=== PATIENT | female | born 1960 | race Caucasian/White ===

== ENCOUNTER 2024-09-24 20:37 | Observation (INO) | payer MEDICARE, MEDICAID, SELFPAY ==
[2024-09-24 20:40] VITALS: PULSE 77; PULSE 80; RESP 18; RESP 19; TEMP 37.8; O2SAT 92; O2SAT 99; BMI 38.0
--- NOTE | 2024-09-24 20:53 | PD.EDAMS ---
Altered Mental Status RME/HPI General Chief Complaint: Altered Mental Status Stated Complaint: AMS Time Seen by Provider: 09/24/24 20:53 Arrival date/time: 09/24/24 20:37 RME / HPI RME / HPI narrative: This section includes all my notes and documentations, including HPI, PE, and ED course. Abdelrahman Patino MD HPI: 64-year-old female here to be evaluated with AMS. [facility]. Normally, she is alert and oriented X 4. NH staff noted AMS and hypoxia just prior to arrival according to EMS report. Can't obtain any history from the patient due to AMS. ROS: Can't obtain from the patient due to AMS. Physical Exam: General: Patient has eyes closed but opens briefly with verbal stimulus. Localizes pain. When asked her name, her answer is correct. But she answers her name to all other questions. Patient is jerking and moving nonstop with no obvious purpose. Hypoxia noted. Eyes: Conjunctivae and lids clear. EOMI. PERRL. ENT: No signs of head trauma. Neck: Supple. No carotid bruit. No JVD. Heart: RRR. Lungs: No respiratory distress. Good air movement. No significant rhonchi, wheezing, rales. Abdomen: Soft and nontender. Legs: Lower legs remarkable for edema and erythema, baseline according to the patient later in the ED course. Skin: Warm and dry. Neuro: Difficult exam due to AMS. Patient given Ativan [address] scans, otherwise unable due to her constant jerky movements. I reviewed all diagnostic test results. My interpretation of the EKG is sinus rhythm with no acute ST?T changes. My interpretation of the chest x-ray is increased vascular congestion. My review of the head CT report is no acute findings. My review of the chest/abdomen/pelvis CT report is no acute findings. Blood tests and urine tests remarkable for UTI and CASEY and UDS positive for opiates. COVID/influenza negative. At this point, diagnoses include AMS, UTI, opioid intoxication, and CASEY. Treatment here included IV fluid and Rocephin and Narcan and flumazenil. Some improvement noted. I discussed the case with our hospitalist. About the presentation and exam and diagnostics and treatments here. And need of further care in the hospital. Will accept the patient. Abdelrahman Patino MD Related Data Home Medications ?Medication ?Instructions ?Recorded ?Confirmed simvastatin 40 mg tablet 40 mg PO HS CHOLESTEROL ##0 06/02/14 04/15/24 sitagliptin phosphate 100 mg 100 mg PO QDAY DIABETES #0 tabs 06/02/14 04/15/24 tablet (Januvia) fenofibrate nanocrystallized 48 mg 48 mg PO QDAY 07/18/19 09/25/24 tablet ascorbic acid 7.5 mg-vit E 7.5 2 tab PO DAILY 10/10/23 04/15/24 unit-biotin 1,250 mcg chewable tablet (Hair,Skin,Nails with Biotin) finerenone 10 mg tablet 10 mg PO QDAY 10/10/23 04/15/24 tiotropium 2.5 mcg-olodaterol 2.5 2 puff inhalation QDAY 10/10/23 04/15/24 mcg/actuation mist for inhalation (Stiolto Respimat) baclofen 20 mg tablet 20 mg PO BID 11/16/23 09/25/24 clopidogrel 75 mg tablet 75 mg PO QDAY 11/16/23 09/25/24 empagliflozin 25 mg tablet 25 mg PO QDAY 11/16/23 09/25/24 (Jardiance) multivitamin-ferrous 1 tab PO QDAY 11/16/23 04/15/24 fumarate-folic acid 18 mg-400 mcg tablet (Centrum Women) buprenorphine 7.5 mcg/hour weekly 7.5 mcg topical QWEEK 02/21/24 04/15/24 transdermal patch (Butrans) ascorbic acid (vitamin C) 25 mg 25 mg PO 1XD 04/15/24 04/15/24 tablet cranberry 400 mg capsule 400 mg PO DAILY 04/15/24 04/15/24 diltiazem HCl 180 mg capsule,24 180 mg PO DAILY 04/15/24 04/15/24 hr,extended release (Tiadylt ER) furosemide 40 mg tablet (Lasix) 40 mg PO QDAY 04/15/24 09/25/24 hydrocodone 10 mg-acetaminophen 1 tab PO Q8HR PRN Pain 04/15/24 09/25/24 325 mg tablet insulin regular human 100 unit/mL See Protocol subcut 3XD 04/15/24 04/15/24 (3 mL) subcutaneous pen (Novolin R FlexPen) magnesium hydroxide 400 mg/5 mL 30 ml PO DAILY PRN Constipation 04/15/24 04/15/24 oral suspension (Milk of Magnesia) mineral oil (Fleet Mineral Oil See Rx Instructions .Route 04/15/24 04/15/24 enema) .COMPLEX PRN Constipation ondansetron HCl 4 mg tablet 4 mg PO DAILY PRN nausea 04/15/24 04/15/24 pregabalin 50 mg capsule (Lyrica) 150 mg PO TID 04/15/24 09/25/24 ascorbic acid (vitamin C) 500 mg 500 mg PO BID 09/25/24 09/25/24 capsule aspirin 81 mg chewable tablet 81 mg PO QDAY 09/25/24 09/25/24 buprenorphine 15 mcg/hour weekly 15 mcg topical .WEEK 09/25/24 09/25/24 transdermal patch diltiazem HCl 180 mg 180 mg PO QDAY 09/25/24 09/25/24 capsule,extended release 24 hr, controlled (DILT-XR) finerenone 10 mg tablet (Kerendia) 10 mg PO QDAY 09/25/24 09/25/24 fluticasone fur. 200 mcg-umeclid 1 inh inhalation QDAY 09/25/24 09/25/24 62.5 mcg-vilant 25 mcg inhalat.powder (Trelegy Ellipta) insulin glargine 100 unit/mL (3 50 unit subcut QAM 09/25/24 09/25/24 mL) subcutaneous pen (Lantus Solostar U-100 Insulin) insulin glargine 100 unit/mL (3 75 unit subcut HS 09/25/24 09/25/24 mL) subcutaneous pen (Lantus Solostar U-100 Insulin) minerals 1 tab PO DAILY 09/25/24 09/25/24 naloxone 4 mg/actuation nasal spray 4 mg intranasal Q2M PRN OPIOD 09/25/24 09/25/24 OVERDOSE simvastatin 10 mg tablet 10 mg PO QPM 09/25/24 09/25/24 trazodone 50 mg tablet 50 mg PO HS 09/25/24 09/25/24 zinc sulfate 50 mg zinc (220 mg) 50 mg PO QDAY 03/23/25 03/23/25 capsule Previous Rx's ?Medication ?Instructions ?Recorded pantoprazole 40 mg tablet,delayed 40 mg PO BID #60 tabs 11/17/23 release (Protonix) insulin glargine 100 unit/mL (3 40 unit (0.4 mL) subcut BID #15 mL 02/21/24 mL) subcutaneous pen, sensor Allergies Allergy/AdvReac Type Severity Reaction Status Date / Time venom-honey bee Allergy Severe Anaphylaxis Verified 02/19/24 10:57 venom-wasp Allergy Severe Anaphylaxis Verified 02/19/24 10:57 codeine AdvReac Severe PROJECTILE Verified 02/19/24 10:57 VOMITING Sulfa (Sulfonamide AdvReac Severe Nausea Verified 02/19/24 10:57 Antibiotics) Course Quality Measures none Orders Category Date Time Status Bedside COVID-19 Antigen Test NOW Care 09/24/24 20:59 Active Bedside Influenza A&B Antigen Test NOW Care 09/24/24 20:59 Completed COVID-19 Screening Questionnaire NOW Care 09/25/24 03:56 Active Decision to Admit X1 Care 09/25/24 03:56 Completed EKG (ED ONLY) *Do not use* NOW Care 09/24/24 21:01 Completed Nicholas [Urinary Catheter] QS Care 09/24/24 23:00 Active Saline [Insert IV] NOW Care 09/24/24 20:59 Active Straight [In and Out Catheter] X1 Care 09/24/24 20:[address] chest abdomen pelvis wo Stat Exams 09/24/24 21:[address] head/brain wo con Stat Exams 09/24/24 21:02 Completed EKG (ED Only) Stat Exams 09/24/24 21:01 Draft XR chest 1V portable Stat Exams 09/24/24 21:02 Completed ABG [Arterial Blood Gas] Stat Lab 09/24/24 21:58 Completed Alcohol, Blood Medical Stat Lab 09/24/24 21:40 Completed Ammonia Stat Lab 09/24/24 21:40 Completed Amylase Stat Lab 09/24/24 21:40 Completed BNP [B-Type Natriuretic Peptide] Stat Lab 09/24/24 21:40 Completed Beta Hydroxybutyrate Stat Lab 09/24/24 21:40 Completed Blood Culture (Lab) Stat Lab 09/24/24 20:53 Results CBC Stat Lab 09/24/24 21:40 Completed CMP [Comprehensive Metabolic Panel] Stat Lab 09/24/24 21:40 Completed CRP [C-Reactive Protein] Stat Lab 09/24/24 21:40 Completed D-Dimer Stat Lab 09/24/24 21:40 Completed Drug Screen,Urine Stat Lab 09/24/24 22:15 Completed ESR [Sed Rate (ESR)] Stat Lab 09/24/24 21:40 Completed Lactate (Lactic Acid) Stat Lab 09/24/24 21:40 Completed Lactic Acid, 3 HR Stat Lab 09/25/24 00:58 Completed Lipase Stat Lab 09/24/24 21:40 Completed Magnesium Stat Lab 09/24/24 21:40 Completed PT [Prothrombin Time with INR] Stat Lab 09/24/24 20:50 Completed PTT [Partial Thromboplastin Time] Stat Lab 09/24/24 20:50 Completed Procalcitonin Stat Lab 09/24/24 21:40 Completed TSH [Thyroid Stimulating Hormone] Stat Lab 09/24/24 21:40 Completed Troponin I Stat Lab 09/24/24 21:40 Completed UA, C/S IF [Urinalysis, C/S if Indicated] Stat Lab 09/24/24 22:15 Completed Urine Culture Stat Lab 09/24/24 22:15 Received LORazepam [Ativan Inj] Med 09/24/24 23:25 Discontinued 2 mg IVP X1 ONE NALOXONE INJ (Vial) [Narcan Inj (Vial)] Med 09/25/24 02:14 Discontinued 2 mg IV X1 ONE Sodium Chloride 0.9% 1000 ml [Ns] 1,000 ml Med 09/24/24 21:00 Discontinued IV 999 mls/hr cefTRIAXone [Rocephin] 1,000 mg Med 09/24/24 23:25 Discontinued SODIUM CHLORIDE 0.9% (Popper) [Ns 0.9% (P)] 50 ml IV X1 flumazeniL [Romazicon Inj] Med 09/25/24 02:14 Discontinued 0.2 mg IVP X1 ONE Vital Signs Vital signs: Vital Signs Temperature 100.1 F 09/24/24 20:40 Pulse Rate 80 09/24/24 20:40 Respiratory Rate 19 09/24/24 20:40 Pulse Oximetry (%) 92 L 09/24/24 20:40 Oxygen Delivery Method Room Air 09/24/24 20:40 Altered Mental Status Patient data External records reviewed:: [facility] previous records, EMS form and Group Home records Clinical information provided by:: EMS Social determinants that could affect healthcare access:: other (specify) ([facility] patient) Patient has the following chronic illnesses:: DM, chronic pain, chronic leg edema How is presenting disease/condition affected by chronic disease/condition?: exacerbated by Evaluation data The following diagnostics were reviewed and interpreted by me:: lab results, radiology exam(s) and EKG tracing(s) (My interpretation of the EKG: Paced rhythm (67 bpm). Abdelrahman Patino MD) Lab and/or radiology exams considered but not ordered:: None Interpretation Summary: AMS, UTI, CASEY, opioid intoxication Medications / Prescriptions Medications or Prescriptions considered but not ordered:: None Medication administrations:: Medication Administration History Acetaminophen (Acetaminophen 325 Mg Tablet) 650 mg PO Q6H PRN PRN Reason: Fever >100 or pain 1-3 Stop: 10/25/24 04:36 Hydrocodone Bitart/Acetaminophen (Hydrocodone/Apap 10/325 Tab) 1 tab PO Q6H PRN PRN Reason: PAIN SCALE 4-6 (Moderate Stop: 09/30/24 04:36 Albuterol/Ipratropium (Albuterol/Ipratropium (Duoneb) Rt Joy 3 Ml Nebu) 3 ml INH Q4HRRT PRN PRN Reason: sob/wheezing Stop: 10/25/24 06:59 Atorvastatin Calcium (Atorvastatin Calcium 20 Mg Tablet) 40 mg PO HS EMY Stop: 10/25/24 20:59 Last Admin: 09/25/24 21:14 Dose: 40 mg Documented By: MS Clopidogrel Bisulfate (Clopidogrel Bisulfate 75 Mg Tablet) 75 mg PO QDAY EMY Stop: 10/25/24 08:59 Last Admin: 09/25/24 09:28 Dose: 75 mg Documented By: VRS Dextrose (Dextrose 50%-Water Inj 50 Ml Syringe) 25 ml IV Q15MIN PRN PRN Reason: BG 50-70 responsive npo pt Stop: 10/25/24 04:41 Dextrose (Dextrose 50%-Water Inj 50 Ml Syringe) 50 ml IV Q15MIN PRN PRN Reason: BG <50 OR BG <70 & pt unresponsive Stop: 10/25/24 04:41 Diltiazem HCl (Diltiazem Er 90 Mg Er Capsule) 180 mg PO QDAY EMY Stop: 10/25/24 08:59 Last Admin: 09/25/24 11:20 Dose: Not Given Documented By: CS Non-Admin Reason: not given by previous department Glucagon (Glucagon Inj 1 Mg Vial) 1 mg IM Q15MIN PRN PRN Reason: BG <70, and no IV access Heparin Sodium (Porcine) (Heparin Sod Inj 5000 Unit/Ml Vial) 5,000 unit SC Q12H EMY Stop: 10/09/24 08:59 Last Admin: 09/25/24 21:15 Dose: 5,000 unit Documented By: Co-signed By: Admin: 09/25/24 09:28 Dose: 5,000 unit Documented By: WILLIAMS Co-signed By: GEOVANNY Ceftriaxone Sodium/Dextrose (Rocephin/D5w 1gm Iv Premix) 1 gm in 50 mls @ 100 mls/hr IV HS EMY Stop: 10/02/24 08:59 Last Admin: 09/25/24 21:15 Dose: 100 mls/hr Documented By: Insulin Human Lispro (Insulin Lispro (Admelog) 1 Unit/0.01 Ml Unit) 0 unit SC AC EMY; Protocol Stop: 10/25/24 07:29 Last Admin: 09/25/24 17:00 Dose: Not Given Documented By: CS Non-Admin Reason: Per Protocol Admin: 09/25/24 11:30 Dose: Not Given Documented By: BELKYS Non-Admin Reason: Per Protocol Admin: 09/25/24 07:41 Dose: Not Given Documented By: VRS Non-Admin Reason: Per Protocol Ondansetron HCl (Ondansetron Inj 2 Mg/Ml Inj 2 Ml) 4 mg IV Q6H PRN; Protocol PRN Reason: NAUSEA OR VOMITING Stop: 10/25/24 04:36 Pregabalin (Pregabalin 50 Mg Capsule) 50 mg PO TID EMY Stop: 10/25/24 21:59 Last Admin: 09/25/24 21:15 Dose: 50 mg Documented By: Sennosides (Senna Tablet) 1 tab PO QDAY PRN; Protocol PRN Reason: constipation Stop: 10/25/24 08:59 Discontinued Medications Hydrocodone Bitart/Acetaminophen (Hydrocodone/Apap 10/325 Tab) 1 tab PO X1 ONE Stop: 09/26/24 00:48 Last Admin: 09/26/24 00:56 Dose: 1 tab Documented By: Flumazenil (Flumazenil Inj 0.1 Mg/Ml Vial 10 Ml) 0.2 mg IVP X1 ONE Stop: 09/25/24 02:15 Last Admin: 09/25/24 02:41 Dose: 0.2 mg Documented By: EE Fluvastatin Sodium (Fluvastatin Sodium 20 Mg Capsule) 20 mg PO HS [facility] Stop: 10/25/24 20:59 Sodium Chloride (Ns) 1,000 mls @ 999 mls/hr IV .Q1H1M ONE Stop: 09/24/24 22:00 Last Infusion: 09/24/24 23:00 Dose: Infused Documented By: Admin: 09/24/24 21:59 Dose: 999 mls/hr Documented By: CCT Ceftriaxone Sodium 1,000 mg/ (Sodium Chloride) 50 mls @ 100 mls/hr IV X1 ONE Stop: 09/24/24 23:54 Last Infusion: 09/25/24 00:10 Dose: Infused Documented By: Admin: 09/24/24 23:36 Dose: 100 mls/hr Documented By: CCT Sodium Chloride (Ns) 500 mls @ 75 mls/hr IV .Q6H40M [facility] Stop: 09/25/24 13:48 Last Admin: 09/25/24 07:44 Dose: 75 mls/hr Documented By: VRS Lidocaine (Lidocaine 5% 1 Patch) 1 patch TOP X1 ONE Stop: 09/25/24 20:15 Last Admin: 09/25/24 20:14 Dose: Not Given Documented By: MS Non-Admin Reason: Patient Refused Lorazepam (Lorazepam 2 Mg/Ml Vial) 2 mg IVP X1 ONE Stop: 09/24/24 23:26 Last Admin: 09/24/24 23:36 Dose: 2 mg Documented By: CCT Naloxone HCl (Naloxone Inj 0.4 Mg/Ml Vial) 2 mg IV X1 ONE Stop: 09/25/24 02:15 Last Admin: 09/25/24 02:42 Dose: 2 mg Documented By: EE Co-signed By: CCT Pantoprazole Sodium (Pantoprazole Inj 40 Mg Vial) 40 mg IVP QDAY [facility] Stop: 10/25/24 08:59 Last Admin: 09/25/24 09:28 Dose: 40 mg Documented By: VRS Trazodone HCl (Trazodone Hcl 50 Mg Tablet) 50 mg PO HS EMY Stop: 10/25/24 20:59 From me, patient was given Ativan for CT scan. Then she was given IV fluid and Rocephin and Narcan and flumazenil. Consultations Consultation(s) initiated? (list below): No Diagnosis Differential diagnosis altered mental status: alcoholic intoxication, altered mental status, delirium, dementia, hypoglycemia, hyponatremia, subarachnoid hemorrhage and sepsis Most likely diagnosis given after review of the tests above:: AMS, UTI, CASEY, opioid intoxication Admission Indicated Admission indicated?: indicated Explain why admission is indicated or not indicated:: AMS, UTI, CASEY, opioid intoxication Admission Request Was there a request for admission?: Yes Admission Attestation Admission request attestation: Discussed case with Hospitalist service regarding admission. Discussed patients ED course, exam findings, labs, and radiology results. The Hospitalist [agrees] to accept the patient for admission. Disposition Plan Disposition Plan: Admit Critical Care Time Critical Care Time Total Critical Care Time (min.): 48 Attestation: Due to a high probability of clinically significant, life threatening deterioration, the patient required my highest level of preparedness to intervene emergently and I personally spent this critical care time directly and personally managing the patient. This critical care time included obtaining a history; examining the patient; ordering and review of studies; arranging urgent treatment with development of a management plan; evaluation of patient's response to treatment; frequent reassessment; and discussions with family and other providers. It was exclusive of separately billable procedures and treating other patients and teaching time. Abdelrahman Patino MD Discharge Plan Plan Patient Disposition: Other Care w/in Hosp (SDC/GEN) Problem List Clinical Impression: AMS (altered mental status), Acute respiratory failure with hypoxia, UTI (urinary tract infection), Opiate use
--- NOTE | 2024-09-24 21:00 | PC.NURSE ---
[facility]o altered mental status. At this time, pt is lethargic, arousable to voice and oriented to self. Also noted abnormal twitching of body. Per EMS, normally GSC 15, alert/oriented x4 and body twitching is new for pt. Pt place on cash grain farmer, bed to lowest position, call light within reach. Discussed plan of care with Dr. Patino.
--- NOTE | 2024-09-24 21:01 | EKG_ITS ---
[facility] Test Date: 2024-09-24 Pat Name: PLACIDO HERNANDES Department: Room: - Gender: Female Director Of Event Sales: : 1960 Requested By: Abdelrahman Moesr Order Number: [id number] Reading MD: Abdelrahman Moser Measurements Intervals Vestal Rate: 67 P: -59 KS: 184 QRS: 35 QRSD: 104 T: 106 QT: 426 QTc: 451 Interpretive Statements ECTOPIC ATRIAL RHYTHM ABNORMAL QRS-T ANGLE [QRS-T AXIS DIFFERENCE > 60] Compared to ECG 04/15/2024 13:15:22 Ectopic atrial rhythm now present Sinus rhythm no longer present Myocardial infarct finding no longer present /store/S0/[id number]/ecg/[id number].pdf
--- NOTE | 2024-09-24 21:02 | XR_ITS ---
Examination: CT brain head without contrast. 2-D sagittal coronal reconstructions Date and time of exam:September 25, 2024 0038 hours Comparison April 15, 2024 INDICATIONS: Altered mental status today, history altered mental status April 15, 2024 CTDI: vol (mGy):51.5 DLP: (mGycm):937 Technique: Multiple CT axial sections of the brain have been obtained, 5 mm slice thickness. Contrast has not been administered. 2-D sagittal, coronal reconstructions have been obtained Low dose protocols were performed. One or more of the following dose reduction techniques were used; automated exposure control, adjustment of the mA and/or KV according to patient size, use of iterative reconstruction technique. Findings: No significant ventricular enlargement. 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 No mass effect or midline shift Basal cisterns are not remarkable. Fourth ventricle is midline. Cranial vault intact. Impression: Negative for acute hemorrhage, mass effect or midline shift If symptoms persist, consider brain MRI MRA without contrast, stroke protocol, follow-up
--- NOTE | 2024-09-24 21:02 | XR_ITS ---
Examination: AP chest single view TECHNIQUE: AP portable semiupright chest single view Exam date and time:: September 24, 2024 2005 hours INDICATIONS: Shortness of breath today. COMPARISON: April 15, 2024 FINDINGS: Normal heart size Moderate vascular congestion Normal lobar pneumonia Moderate osteopenia IMPRESSION: Moderate vascular congestion
--- NOTE | 2024-09-24 21:02 | XR_ITS ---
Examination: CT chest, without intravenous contrast. CT abdomen, without intravenous contrast. CT pelvis, without intravenous contrast. 2-D sagittal and coronal reconstructions. 3-D reconstructions. Date and time of exam:September 25, 2024 0004 hours Comparison May 01, 2024 INDICATIONS: Onset chest and abdominal pain today CTDI vol (mgy) 22.5 DLP (MGycm)1548 Technique: Multiple CT images, 3.0 mm slice thickness, obtained chest, abdomen, pelvis, with the high-resolution 64 slice scanner.. Sagittal and coronal 2-D reconstructions are obtained. 3-D reconstructions Low dose protocols were performed. One or more of the following dose reduction techniques were used; automated exposure control, adjustment of the mA and/or KV according to patient size, use of iterative reconstruction technique. Findings: Thoracic aortic calcification no aneurysmal dilatation Pulmonary artery segments are not enlarged Heavy calcification left main and left anterior descending right coronary arteries Mild enlargement left atrium or ventricle Mild mitral valvular calcification No lobar pneumonia or pulmonary edema Stable 15 mm pulmonary nodule right middle lobe 10 mm pulmonary nodule right upper lobe Liver is irregular in contour and enlarged, 18 cm Absent gallbladder Spleen is not enlarged No pancreatic or adrenal mass Moderate bilateral renal parenchymal scar formation Heavy abdominal aortic calcification Normal appendix No diverticulitis 3.6 cm fat-containing umbilical hernia Atrophic uterus Urinary bladder contracted around a Nicholas catheter Prominent osteopenia IMPRESSION: Heavy coronary artery calcification Pulmonary nodules as above, the right upper lobe pulmonary nodule 10 mm measured 7 mm on April 11, 2024, recommend continued CT chest without contrast follow-up Cirrhosis versus primary hepatocellular disease, hepatomegaly Moderate bilateral renal parenchymal scar formation 3.6 cm fat-containing umbilical hernia
[2024-09-24 21:54] LABS: Lactate (Lactic Acid) 2.1 mMol/L (0.4-2.0)
[2024-09-24 21:55] LABS: Basophils # (Auto) 0.1 Thou/mm3 (0.0-0.2); Basophils % (Auto) 1 % (0-2.5); Eosinophils # (Auto) 0.5 Thou/mm3 (0.0-0.5); Eosinophils % (Auto) 6 % (0-10); Hematocrit 37.5 % (36.0-46.0); Hemoglobin 12.2 g/dL (12.0-16.0); Immature Granulocytes % (Auto) 1 % (0-0); Immature Granulocytes Auto 0.06 Thou/mm3 (0.00-0.00); Lymphocytes # (Auto) 1.3 Thou/mm3 (1.0-4.8); Lymphocytes % (Auto) 14 % (10-50); Mean Corpuscular HGB Conc 32.5 g/dl (31.0-37.0); Mean Corpuscular Hemoglobin 27.5 pg (25.0-35.0); Mean Corpuscular Volume 85 fL (80-100); Monocytes # (Auto) 1.1 Thou/mm3 (0.0-0.8); Monocytes % (Auto) 12 % (0-12); Neutrophils # (Auto) 6.2 Thou/mm3 (1.8-7.7); Neutrophils % (Auto) 67 % (37-80); Nucleated Red Blood Cell % 0 /100 WBC (0); Platelet Count 349 Thou/mm3 (140-440); RDW Standard Deviation 46.7 fL (36.4-46.3); Red Blood Count 4.43 Miln/mm3 (4.00-5.20); White Blood Count 9.3 Thou/mm3 (3.6-11.0)
[2024-09-24 21:58] LABS: Beta Hydroxybutyrate 0.3 mmol/L (<0.6)
[2024-09-24] MEDS: SODIUM CHLORIDE 0.9% 1000 ML 1,000 ML 999 ML IV (21:59)
[2024-09-24 22:14] LABS: Base Excess 7 (-3-3); HCO3 33 mEq/L (20-26); Inspired Oxygen, FIO2 21 %; O2 Saturation 97 % (91-98); PCO2 55 mmHg (32.0-48.0); PO2 92 mmHg (83-108); pH, Arterial 7.39 (7.35-7.45)
[2024-09-24 22:15] LABS: B-Type Natriuretic Peptide 39 pg/mL (0-100)
[2024-09-24 22:17] LABS: Alanine Aminotransferase 38 U/L (10-49); Albumin, Serum 4.4 gm/dL (3.4-4.8); Albumin/Globulin Ratio 1.6 (1.2-2.2); Alcohol, Blood Medical < 3.0 mg/dL (0-10.0); Alkaline Phosphatase 159 U/L (46-116); Ammonia < 10 uMol/L (11-32); Amylase 71 U/L (30-118); Anion Gap 10 (7-16); Aspartate Amino Transferase 42 U/L (0-34); BUN/Creatinine Ratio 41 Ratio (12-20); Bilirubin,Total 0.3 mg/dL (0.3-1.2); Blood Urea Nitrogen 74 mg/dL (9-23); C-Reactive Protein 3.1 mg/dL (0.0-0.9); Carbon Dioxide 29.4 mMol/L (20.0-31.0); Chloride 100 mMol/L (98-107); Creatinine (Component) 1.8 mg/dL (0.6-1.3); Estimated Creatinine Clearance 34.7 mL/min (>60); Globulin 2.8 gm/dL (2.3-3.5); Glucose 83 mg/dL (74-106); Lipase 35 U/L (12-53); Magnesium 2.5 mg/dL (1.6-2.6); Osmolality,Calculated 298 (275-295); Potassium 4.8 mMol/L (3.4-5.1); Sodium 139 mMol/L (136-145); Total Protein 7.2 gm/dL (5.7-8.2); Troponin I 0.022 ng/mL (0.0-0.045); eGFR 31 See Note
[2024-09-24 22:18] LABS: Partial Thromboplastin Time 27.1 Seconds (22.0-36.0); Prothrombin Time 11.3 Seconds (9.0-12.2)
[2024-09-24 22:23] LABS: Procalcitonin 0.26 ng/ml (0.0-0.49); Thyroid Stimulating Hormone 3.46 uIU/mL (0.55-4.78)
[2024-09-24 22:26] LABS: Allen Test Performed/OK; Puncture Site Right Radial
[2024-09-24 22:27] LABS: Collection Type, Urine Clean Catch; RBC,Urine 0 /hpf (0-3)
[2024-09-24 22:32] LABS: Sed Rate (ESR) 74 mm/hr (0-30)
[2024-09-24 22:36] LABS: D-Dimer 404 ng/mL (<600)
[2024-09-24 22:39] LABS: Bacteria,Urine Rare; Bilirubin,Urine Negative (Negative); Blood,Urine Negative (Negative); Clarity,Urine Turbid (Clear/Hazy); Color,Urine Lt-Yellow (Lt Yel-Yel); Glucose, Urine 4+ (Negative); Ketones,Urine Negative (Negative); Leukocyte Esterase,Urine Positive (Negative); Nitrite,Urine Negative (Negative); Protein,Urine 1+ (Neg - Trace); Specific Gravity,Urine 1.013 (1.001-1.035); Squamous Epithelial Cell,Urine < 1 /hpf (0-5); Urobilinogen,Urine Negative mg/dL (0.0-1.0); WBC,Urine 90 /hpf (0-5)
[2024-09-24 22:42] LABS: Amphetamine/Methamp Scrn,U Negative (Negative); Barbiturate Screen,Urine Negative (Negative); Benzodiazepines Screen,Urine Negative (Negative); Benzoylecgonine Screen, Ur Negative (Negative); Fentanyl Screen,Urine Negative (Negative); Opiate Screen,Urine Positive (Negative); THC Screen,Urine Negative (Negative)
[2024-09-24 22:46] VITALS: BP 136/63; PULSE 66; RESP 18; TEMP 36.8; O2SAT 100
[2024-09-24 22:47] LABS: Culture Indicated,Urine Yes
[2024-09-24] MEDS: LORazepam 2 MG/ML VIAL IVP (23:36)
[2024-09-24] MEDS: cefTRIAXone 1,000 MG in SODIUM CHLORIDE 0.9% (Popper) 50 ML 100 MG IV (23:36)
[2024-09-25] VITALS (8 sets, daily range): BP systolic 107–168; BP diastolic 54–85; PULSE 65–85; RESP 12–20; TEMP 36.1–36.9; O2SAT 94–100; BMI 37.2
[2024-09-25 00:50] LABS: Reflex Lactate? Y
--- NOTE | 2024-09-25 01:12 | PRELIM_ITS ---
CT scan of the head without intravenous contrast (axial sections with sagittal and coronal reformats) September 25, 2024 at 0037 hours Clinical history: Altered mental status. Comparison: No prior study is available for comparison. Findings: There is no evidence of intracranial hemorrhage, mass effect or midline shift. There are periventricular white matter hypodensities, compatible with chronic small vessel ischemia. There is mild volume loss. The calvarium is unremarkable. There is complete opacification of the right frontal sinus and mild mucosal thickening in bilateral ethmoid sinuses. The mastoid air cells and the other visualized paranasal sinuses are clear. Impression: No evidence of intracranial hemorrhage, mass effect or midline shift. Chronic small vessel ischemia and volume loss as described. Report Electronically Signed By: Rusty Antunez 09/25/2024 1:11:45 AM [EST]
[2024-09-25 01:16] LABS: Lactic Acid, 3 HR 1.3 mMol/L (0.4-2.0)
--- NOTE | 2024-09-25 02:18 | PRELIM_ITS ---
CT scan of the chest, abdomen and pelvis without intravenous contrast (axial sections with sagittal and coronal reformats) September 25, 2024 0041 hours Clinical History: Chest pain and abdominal pain. Comparison: None. Findings: Calcified nodule in the right middle lobe. Bilateral lower lobes atelectasis. There is no pleural effusion or pneumothorax. The aorta is within normal limits for age on this noncontrast study. No evidence of mediastinal mass or lymphadenopathy. There is no pericardial effusion. The spleen, pancreas, adrenals and kidneys are unremarkable on this noncontrast study. Hepatomegaly. Mild irregular liver margins. Fecal loading. Status post cholecystectomy. No evidence of bowel obstruction. The appendix is within normal limits. Nicholas catheter in place. Fat-containing umbilical hernia without evidence of inflammation. There is no free fluid or free air. Degenerative changes of the imaged portions of the spine. No acute fractures. Chronic multilevel disc disease. Coronary arteries calcifications. Dilated left atrium. Impression: 1. Coronary arteries calcifications, if acute myocardial infarction is clinically suspected, consider correlation with troponin. 2. Dilated left atrium. 3. Hepatomegaly and possible cirrhosis. 4. Fecal loading. Report Electronically Signed By: Haris Doherty 09/25/2024 2:17:38 AM [EST]
[2024-09-25] MEDS: FLUMAZENIL INJ 0.1 MG/ML VIAL 10 ML 0.2 MG IVP (02:41)
[2024-09-25] MEDS: NALOXONE INJ 0.4 MG/ML VIAL 2 MG IV (02:42)
--- NOTE | 2024-09-25 02:55 | PC.NURSE ---
At this time, pt arousable to voice and able to follow command. Pt is oriented to self. Respirations are even and unlabored. No s/s of acute distress noted. Plan of care ongoing.
--- NOTE | 2024-09-25 04:51 | ESHP_ITS ---
<Statement entered by Ileana Dao MD - 09/26/24 05:06> I reviewed above note and agree with findings and plans. I have also personally examined the patient with medicine team and went over assessment and plan with medical team including education intern and resident physician. 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 Patient lives at SNF and caretakers at home said that patient was altered and was unresponsive. She was brought to the ED unable to respond to questions and was altered. when speaking with patient, she does not know where she is is alert to time, however is alert to person. She denies having any complaints including chest pain, shortness of breath, nausea, vomiting. She says she eats fine and her bowel movements are fine. She says she has a little pain in her lower extremities, however this is chronic. She also states that she wants to get up as well. She does confirm she is from nursing facility as well. She says she does not use oxygen at home. She said she does walk on her own. She has no other complaints at this time. ED course: Patient arrived with a temperature of 100.1, heart rate of 80, respiratory rate of 19, saturating 92% room air, blood pressure of 136/63. She was worked up was found to have a sodium 139, potassium 4.8, BUN/creatinine of 74 and 1.8 respectively, bicarb 29, glucose 80, white count 9.3, hemoglobin 12.2, pH ABG 7.34, pCO2 55, bicarb 33, Lactate 2.1, magnesium 2.5, troponin negative x 1, urinalysis showed 90 white cells, rare bacteria and leukocyte esterase, U tox showed opioid. Head CT showed chronic ischemic changes however no acute hemorrhage, mass effect or midline shift. CT C/A/P possible cirrhosis, hepatomegaly, fecal loading, and calcification of coronary arteries. Showed patient given 1 L NS Rocephin x 1, Ativan 2 mg, flumazenil 0.2 mg, Narcan 2 mg. Medicine was consulted patient was admitted to floors. Past medical history: As above Surgical history: Limited Allergies: Codeine, sulfa antibiotics, venom wasp and honeybee Meds: DuoNeb, trazodone, Dawson 10, zinc, ascorbic acid, Lasix 40 mg, Lyrica 150 mg 3 times daily, Lantus, U transdermal patch, simvastatin 10, fenofibrate, NovoLog, Jardiance, triameterne-hydrochlorothiazide, Plavix, Kerendia, Trelegy, Protonix, Lantus, baclofen, diltiazem XR 180, Dulcolax, Fleet enema History: Limited Social history: Limited, coming from [facility] Review of Systems Review of Systems Narrative Review of Systems: ROS is limited as patient is poor historian and altered at this point Exam Vital Signs Temp Pulse Resp BP Pulse Ox O2 Del Method O2 Flow Rate 98.1 F 85 17 152/56 H 100 Nasal Cannula 2 09/25/24 03:00 09/25/24 03:00 09/25/24 03:00 09/25/24 03:00 09/25/24 03:00 09/25/24 03:00 09/25/24 03:00 Narrative Exam General: AAOx1, in mild distress, not alert to time and environment, wearing glasses, eyes are closed when speaking with you, obese HEENT: Moist mucous membranes, conjunctiva clear, EOMI, PERRLA, poor dentition, eyes are not pinpoint, eyes are closed when she speaks with you Cardiovascular: possible systolic murmur heard over LEXI, radial pulses +2 bilat, RRR Pulmonary: CTAB bilat no cough, no wheezing GI: No tenderness to light or deep palpitation, no guarding, rigidity, rebound tenderness or distension Extremities: chronic LE cellulitis seen, slightly TTP bilat, dorsalis pedis pulses +2 bilat Neuro: AAOx1, pupillary reflex +2 intact, responds to pain Psych: slightly cooperative Results: Labs 09/25/24 05:27 09/25/24 05:27 Labs: Short CBC 09/24/24 Range/Units 21:40 WBC 9.3 (3.6-11.0) Thou/mm3 Hgb 12.2 (12.0-16.0) g/dL Hct 37.5 (36.0-46.0) % Plt Count 349 (140-440) Thou/mm3 BMP 09/24/24 21:40 Sodium 139 Potassium 4.8 Chloride 100 Carbon Dioxide 29.4 BUN 74 H Creatinine 1.8 H Glucose 83 Calcium 10.0 Cardiac Enzymes 09/24/24 Range/Units 21:40 Troponin I 0.022 (0.0-0.045) ng/mL Liver Function 09/24/24 Range/Units 21:40 Total Bilirubin 0.3 (0.3-1.2) mg/dL AST 42 H (0-34) U/L ALT 38 (10-49) U/L Alkaline Phosphatase 159 H (46-116) U/L Albumin 4.4 (3.4-4.8) gm/dL Urine 09/24/24 Range/Units 22:15 Urine Color Lt-Yellow (Lt Yel-Yel) Urine Clarity Turbid A (Clear/Hazy) Urine pH 6.0 (5.0-7.0) Ur Specific Sandy 1.013 (1.001-1.035) Urine Protein 1+ A (Neg - Trace) Urine Glucose (UA) 4+ A (Negative) ABG Interpretation ABG results: 09/24/24 21:58 ABG pH 7.39 ABG pCO2 55 H ABG pO2 92 ABG HCO3 33 H ABG O2 Saturation 97 ABG Base Excess 7 H Quality Measures Quality Measures VTE prophylaxis (Heparin) Medications Home Medications and Allergies Home Medications ?Medication ?Instructions ?Recorded ?Confirmed ?Type simvastatin 40 mg tablet 40 mg PO HS CHOLESTEROL ##0 06/02/14 04/15/24 History sitagliptin phosphate 100 mg 100 mg PO QDAY DIABETES # 0 tabs 06/02/14 04/15/24 History tablet (Januvia) fenofibrate nanocrystallized 48 mg 48 mg PO QDAY 07/1804/15/24 History tablet ascorbic acid 7.5 mg-vit E 7.5 2 tab PO DAILY 10/10/23 04/15/24 History unit-biotin 1,250 mcg chewable tablet (Hair,Skin,Nails with Biotin) finerenone 10 mg tablet 10 mg PO QDAY 10/10/2304/15 History tiotropium 2.5 mcg-olodaterol 2.5 2 puff inhalation QD AY 10/10/23 04/15/24 History mcg/actuation mist for inhalation (Stiolto Respimat) baclofen 20 mg tablet 20 mg PO BID 11/16/23 History clopidogrel 75 mg tablet 75 mg PO QDAY 11/16/2304/15 History empagliflozin 25 mg tablet 25 mg PO QDAY 11/16/2304/05 History (Jardiance) multivitamin-ferrous 1 tab PO QDAY 11/16/2304/15 History fumarate-folic acid 18 mg-400 mcg tablet (Centrum Women) buprenorphine 7.5 mcg/hour weekly 7.5 mcg topical QWEE K 02/21/24 04/15/24 History transdermal patch (Butrans) ascorbic acid (vitamin C) 25 mg 25 mg PO 1XD 04/15/24 04/15/24 History tablet cranberry 400 mg capsule 400 mg PO DAILY 04/15/2405/29 History diltiazem HCl 180 mg capsule,24 180 mg PO DAILY 04/15/24 History hr,extended release (Tiadylt ER) furosemide 40 mg tablet (Lasix) 20 mg PO QDAY 04/15/24 04/15/24 History hydrocodone 10 mg-acetaminophen 1 tab PO Q8HR PRN Pain 04/15/24 04/15/24 History 325 mg tablet insulin regular human 100 unit/mL See Protocol subcut 3XD 04/15/24 04/15/24 History (3 mL) subcutaneous pen (Novolin R FlexPen) magnesium hydroxide 400 mg/5 mL 30 ml PO DAILY PRN Con stipation 04/15/24 04/15/24 History oral suspension (Milk of Magnesia) mineral oil (Fleet Mineral Oil See Rx Instructions .Ro morongo 04/15/24 04/15/24 History enema) .COMPLEX PRN Constipation ondansetron HCl 4 mg tablet 4 mg PO DAILY PRN nausea 1 04/15/24 History pregabalin 50 mg capsule (Lyrica) 100 mg PO BID 04/15/24 History Held on 04/18/24. Instructions: Resume on 04/25/24. follow up with PCP, consider decreasing dosage as it makes you somnolent Allergies Allergy/AdvReac Type Severity Reaction Status Date / Time venom-honey bee Allergy Severe Anaphylaxis Verified 02/19/24 10:57 venom-wasp Allergy Severe Anaphylaxis Verified 02/19/24 10:57 codeine AdvReac Severe PROJECTILE Verified 02/19/24 10:57 VOMITING Sulfa (Sulfonamide AdvReac Severe Nausea Verified 02/19/24 10:57 Antibiotics) Visit Medications Acetaminophen (Acetaminophen 325 Mg Tablet) 650 mg PO Q6H PRN PRN Reason: Fever >100 or pain 1-3 Stop: 10/25/24 04:36 Hydrocodone Bitart/Acetaminophen (Hydrocodone/Apap 10/325 Tab) 1 tab PO Q6H PRN PRN Reason: PAIN SCALE 4-6 (Moderate Stop: 09/30/24 04:36 Albuterol/Ipratropium (Albuterol/Ipratropium (Duoneb) Rt Joy 3 Ml Nebu) 3 ml INH Q4HRRT PRN PRN Reason: sob/wheezing Stop: 10/25/24 06:59 Clopidogrel Bisulfate (Clopidogrel Bisulfate 75 Mg Tablet) 75 mg PO QDAY EMY Stop: 10/25/24 08:59 Dextrose (Dextrose 50%-Water Inj 50 Ml Syringe) 25 ml IV Q15MIN PRN PRN Reason: BG 50-70 responsive npo pt Stop: 10/25/24 04:41 Dextrose (Dextrose 50%-Water Inj 50 Ml Syringe) 50 ml IV Q15MIN PRN PRN Reason: BG <50 OR BG <70 & pt unresponsive Stop: 10/25/24 04:41 Fluvastatin Sodium (Fluvastatin Sodium 20 Mg Capsule) 20 mg PO HS EMY Stop: 10/25/24 20:59 Glucagon (Glucagon Inj 1 Mg Vial) 1 mg IM Q15MIN PRN PRN Reason: BG <70, and no IV access Heparin Sodium (Porcine) (Heparin Sod Inj 5000 Unit/Ml Vial) 5,000 unit SC Q12H EMY Stop: 10/09/24 08:59 Insulin Human Lispro (Insulin Lispro (Admelog) 1 Unit/0.01 Ml Unit) 0 unit SC AC EMY; Protocol Stop: 10/25/24 07:29 Ondansetron HCl (Ondansetron Inj 2 Mg/Ml Inj 2 Ml) 4 mg IV Q6H PRN; Protocol PRN Reason: NAUSEA OR VOMITING Stop: 10/25/24 04:36 Pantoprazole Sodium (Pantoprazole Inj 40 Mg Vial) 40 mg IVP QDAY EMY Stop: 10/25/24 08:59 Sennosides (Senna Tablet) 1 tab PO QDAY PRN; Protocol PRN Reason: constipation Stop: 10/25/24 08:59 Trazodone HCl (Trazodone Hcl 50 Mg Tablet) 50 mg PO HS EMY Stop: 10/25/24 20:59 Discontinued Medications Flumazenil (Flumazenil Inj 0.1 Mg/Ml Vial 10 Ml) 0.2 mg IVP X1 ONE Stop: 09/25/24 02:15 Last Admin: 09/25/24 02:41 Dose: 0.2 mg Sodium Chloride (Ns) 1,000 mls @ 999 mls/hr IV .Q1H1M ONE Stop: 09/24/24 22:00 Last Infusion: 09/24/24 23:00 Dose: Infused Ceftriaxone Sodium 1,000 mg/ (Sodium Chloride) 50 mls @ 100 mls/hr IV X1 ONE Stop: 09/24/24 23:54 Last Infusion: 09/25/24 00:10 Dose: Infused Lorazepam (Lorazepam 2 Mg/Ml Vial) 2 mg IVP X1 ONE Stop: 09/24/24 23:26 Last Admin: 09/24/24 23:36 Dose: 2 mg Naloxone HCl (Naloxone Inj 0.4 Mg/Ml Vial) 2 mg IV X1 ONE Stop: 09/25/24 02:15 Last Admin: 09/25/24 02:42 Dose: 2 mg Assessment & Plan Plan Assessment Amrita is a 64 y/o female with PMHx of COPD, CAD s/p two stent placements, 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 for an evaluation of altered mental status. Patient lives at [facility] #Acute encephalopathy, multifactorial #Opioid intoxication #UTI Patient came in altered and was not able to answer many questions GCS of 12 at this point Patient required Ativan during CT scan, was given flumazenil and Narcan after Narcan greatly improved patient's mentation, U tox showed opioids Encephalopathy likely multifactorial including opioid intoxication and UTI Urinalysis shows white cells, bacteria and leukocyte esterase Head CT showed chronic ischemic changes Will treat patient's UTI, avoid sedatives with hopes for improvement of encephalopathy Plan: ? Avoid any sedatives including narcotics ? Rocephin 1 g IV daily ? Consider neurology consult ? Neurochecks every 4 hours ? Seizure precautions ? Consider speech therapy if patient fails swallow eval #Acute kidney injury on CKD DDx: Prerenal versus ATN versus obstructive Pt baseline seems to be 1.2, Cr 1.8 today Likely related to poor oral intake Pt got 1L fluids in ED, gentle fluids due to hx of HF No stones seen on CT C/A/P Plan: ? Gentle Maintenance fluids NS 75 cc/hr ? Avoid nephrotoxic agents ? Renally dose medicines ? Urine lytes and creatinine #Hx of COPD Pt denies using home oxygen at home Will consider resuming maintenance inhalers Plan: ?DuoNebs every 6 hours as needed #Hx of HFpEF, G3DD #Hx of mild Pulmonary HTN #Hx of CAD s/p stents #Hypertension #Hyperlipidemia Chronic Unsure if pt has afib, no afib seen on today's ekg and reviewed other ekgs as well Echo from April 2024: Normal LV size and function. Estimated EF 50-55%. Grade 3 diastolic dysfunction. Mild RV dilatation. Normal RV function. Estimated RVSP 30mmHg Moderate MAC. Mildly decreased mobility of the posterior mitral valve leaflet Mild MR, TR. IVC mildly dilatated. Plan: ? Resumed home Cardizem ER 180 mg qday ? Resumed Fluvastatin 20 mg at bedtime to convert to simvastatin 10 mg ? Resumed home Plavix 75 mg daily ? Keep mag and Potassium above 2 and 4 respectively to avoid any cardiac arrhythmias ? Resume GDMT therapy when able #Insulin dependent type II Diabetes mellitus A1c 13.6 in Mar 2024 Plan: ? Sliding scale insulin ? Hypoglycemic protocol in place ? Blood sugar checks with meals #Chronic venous stasis Plan: ? Consider wound care referral #Health Maintenance Disposition: [facility] DVT prophylaxis: Heparin q12h GI prophylaxis: Protonix Diet: NPO, pending swallow eval CODE STATUS: Full Patient seen and care discussed with my attending physician, Dr. Sylwia Tucker, PGY-1
[2024-09-25 06:03] LABS: Basophils # (Auto) 0.1 Thou/mm3 (0.0-0.2); Basophils % (Auto) 1 % (0-2.5); Eosinophils # (Auto) 0.4 Thou/mm3 (0.0-0.5); Eosinophils % (Auto) 4 % (0-10); Hematocrit 36.9 % (36.0-46.0); Hemoglobin 11.8 g/dL (12.0-16.0); Immature Granulocytes % (Auto) 0 % (0-0); Immature Granulocytes Auto 0.04 Thou/mm3 (0.00-0.00); Lymphocytes % (Auto) 10 % (10-50); Mean Corpuscular Hemoglobin 27.4 pg (25.0-35.0); Mean Corpuscular Volume 86 fL (80-100); Monocytes # (Auto) 1.2 Thou/mm3 (0.0-0.8); Monocytes % (Auto) 11 % (0-12); Neutrophils # (Auto) 8.3 Thou/mm3 (1.8-7.7); Neutrophils % (Auto) 75 % (37-80); Nucleated Red Blood Cell % 0 /100 WBC (0); Platelet Count 322 Thou/mm3 (140-440); RDW Standard Deviation 48.1 fL (36.4-46.3); Red Blood Count 4.31 Miln/mm3 (4.00-5.20)
[2024-09-25 06:13] LABS: Glucose Estimated Average 318 mg/dL (80-131); Hemoglobin A1C 12.7 % Hgb (4.8-6.0)
[2024-09-25 06:29] LABS: Alanine Aminotransferase 35 U/L (10-49); Albumin/Globulin Ratio 1.5 (1.2-2.2); Alkaline Phosphatase 139 U/L (46-116); Anion Gap 8 (7-16); Aspartate Amino Transferase 32 U/L (0-34); BUN/Creatinine Ratio 39 Ratio (12-20); Bilirubin,Total 0.3 mg/dL (0.3-1.2); Blood Urea Nitrogen 63 mg/dL (9-23); Calcium 9.5 mg/dL (8.3-10.6); Calcium (Corrected) 9.5 mg/dL (8.5-10.1); Carbon Dioxide 31.4 mMol/L (20.0-31.0); Cardiac Risk Estimate 5.2 RATIO (3.7-5.6); Chloride 103 mMol/L (98-107); Cholesterol 183 mg/dL (132-200); Creatinine (Component) 1.6 mg/dL (0.6-1.3); Globulin 2.6 gm/dL (2.3-3.5); Glucose 106 mg/dL (74-106); HDL Cholesterol 35 mg/dL (40-60); LDL Cholesterol,Calculated 79 mg/dL (0-130); Magnesium 2.4 mg/dL (1.6-2.6); Osmolality,Calculated 301 (275-295); Sodium 142 mMol/L (136-145); Total Protein 6.6 gm/dL (5.7-8.2); Triglycerides 345 mg/dL (30-150); eGFR 36 See Note
[2024-09-25] MEDS: SODIUM CHLORIDE 0.9% 1000 ML 500 ML 75 ML IV (07:44)
[2024-09-25] MEDS: CLOPIDOGREL BISULFATE 75 MG TABLET PO (09:28)
[2024-09-25] MEDS: HEPARIN SOD INJ 5000 UNIT/ML VIAL SC ×2 (09:28→21:15)
[2024-09-25] MEDS: PANTOPRAZOLE INJ 40 MG VIAL IVP (09:28)
[2024-09-25 10:32] LABS: Creatinine,Random Urine 20 mg/dL (30-125); Potassium,Urine Random 25 mMol/L (12-62)
--- NOTE | 2024-09-25 10:39 | PC.NURSE ---
REPORT CALLED TO MERCEDES KIM ON MED SURG. ALL QUESTIONS ANSWERED.
--- NOTE | 2024-09-25 11:50 | ESPR_ITS ---
Documentation for date of: 09/25/24 Subjective Subjective Interval history: 09/25/2024: Overnight admission for a 64-year-old female with past medical history of CAD, insulin-dependent type 2 diabetes, COPD, CKD stage IIIb who presented to the ED with acute encephalopathy likely secondary to polypharmacy along with underlying urinary tract infection. Patient was admitted and started on IV antibiotics and home medications were restarted. Patient will need management of her pain medications as she is currently on Morse 10 mg along with Prevnar for and transdermal patch on the right upper extremity. Patient seen and examined this morning appears to be more awake and answering questions appropriately. Will continue to treat with IV antibiotics and follow-up on urine cultures. Expect discharge within the next 24 to 48 hours depending on physical therapy recommendations. Exam Vital Signs Temp Pulse Resp BP Pulse Ox O2 Del Method O2 Flow Rate 97.4 F 84 12 168/76 H 99 Nasal Cannula 2.5 09/25/24 08:56 09/25/24 08:56 09/25/24 08:56 09/25/24 08:56 09/25/24 08:56 09/25/24 08:56 09/25/24 08:56 Narrative Exam Physical Exam: GENERAL: Awake, answering questions appropriately, appears stated age HEENT: NC/AT. Moist mucosa. PERRLA/EOMI. CARDIO: Heart RRR, no obvious murmurs, no JVD. PULM: No coughing or visible SOB but continues to be on 2 L nasal cannula. Lungs CTA B/L. GI: Abdomen soft, NT/ND, +BS. SKIN/MSK/EXT: Patient has bilateral lower extremity erythematous patches of varying sizes which are blanchable. No edema/amputations noted. +Pedal pulses present B/L. Onychomycosis NEURO: Oriented x3, Moves extremities x4, No focal neurologic deficits Objective Labs 09/26/24 05:37 09/26/24 05:37 Labs: Laboratory Results - last 24 hr 09/24/24 09/24/24 09/24/24 20:50 21:40 21:58 WBC 9.3 RBC 4.43 Hgb 12.2 Hct 37.5 MCV 85 MCH 27.5 MCHC 32.5 RDW Std Deviation 46.7 H Plt Count 349 Neut % (Auto) 67 Lymph % (Auto) 14 [place] % (Auto) 12 Eos % (Auto) 6 Baso % (Auto) 1 Neut # (Auto) 6.2 Lymph # (Auto) 1.3 [place] # (Auto) 1.1 H Eos # (Auto) 0.5 Baso # (Auto) 0.1 Immature Gran # (Auto) 0.06 H Absolute Nucleated RBC 0.00 Immature Gran % 1 H Nucleated RBC % 0 ESR 74 H PT 11.3 INR 1.0 APTT 27.1 D-Dimer 404 Puncture Site Right Radial ABG pH 7.39 ABG pCO2 55 H ABG pO2 92 ABG HCO3 33 H ABG O2 Saturation 97 ABG Base Excess 7 H FiO2 21 Sodium 139 Potassium 4.8 Chloride 100 Carbon Dioxide 29.4 Anion Gap 10 BUN 74 H Creatinine 1.8 H Estim Creat Clear Calc 34.7 L eGFR 31 L BUN/Creatinine Ratio [address] H Glucose [address] Glu mg/dL Hemoglobin A1c Calculated Osmolality 298 H Lactic Acid 2.1 H Calcium 10.0 Corrected Calcium 10.0 Magnesium 2.5 Total Bilirubin 0.3 AST 42 H ALT 38 Alkaline Phosphatase 159 H Ammonia < 10 L Troponin I 0.022 C-Reactive Prot, Quant 3.1 H B-Natriuretic Peptide 39 Total Protein 7.2 Albumin 4.4 Globulin 2.8 Albumin/Globulin Ratio 1.6 Triglycerides Cholesterol LDL Cholesterol, Calc HDL Cholesterol Cholesterol/HDL Ratio Amylase 71 Lipase 35 Beta-Hydroxybutyrate/Acetoacetate 0.3 Procalcitonin 0.26 TSH 3.46 Ur Collection Type Urine Color Urine Clarity Urine pH Ur Specific [place] Urine Protein Urine Glucose (UA) Urine Ketones Urine Blood Urine Nitrite Urine Bilirubin Urine Urobilinogen (Auto) Ur Leukocyte Esterase Urine RBC Urine WBC Ur Squamous Epith Cells Urine Bacteria Ur Culture Indicated? Ur Random Creatinine Ur Random Sodium Ur Random Potassium Ur Random Chloride Urine Opiates Screen Urine Fentanyl Screen Ur Barbiturates Screen U Amphetamin/Meth Scrn U Benzodiazepines Scrn U Cocaine Metab Screen U Marijuana (THC) Screen Ethyl Alcohol < 3.0 09/24/24 09/25/24 09/25/24 22:15 00:58 05:27 WBC 11.0 RBC 4.31 Hgb 11.8 L Hct 36.9 MCV 86 MCH 27.4 MCHC 32.0 RDW Std Deviation 48.1 H Plt Count 322 Neut % (Auto) 75 Lymph % (Auto) 10 [place] % (Auto) 11 Eos % (Auto) 4 Baso % (Auto) 1 Neut # (Auto) 8.3 H Lymph # (Auto) 1.0 [place] # (Auto) 1.2 H Eos # (Auto) 0.4 Baso # (Auto) 0.1 Immature Gran # (Auto) 0.04 H Absolute Nucleated RBC 0.00 Immature Gran % 0 Nucleated RBC % 0 ESR PT INR APTT D-Dimer Puncture Site ABG pH ABG pCO2 ABG pO2 ABG HCO3 ABG O2 Saturation ABG Base Excess FiO2 Sodium 142 Potassium 4.0 D Chloride 103 Carbon Dioxide 31.4 H Anion Gap 8 BUN 63 H Creatinine 1.6 H Estim Creat Clear Calc 39.0 L eGFR 36 L BUN/Creatinine Ratio 39 H Glucose [address] Glu mg/dL 318 H Hemoglobin A1c 12.7 H Calculated Osmolality 301 H Lactic Acid 1.3 Calcium 9.5 Corrected Calcium 9.5 Magnesium 2.4 Total Bilirubin 0.3 AST 32 ALT 35 Alkaline Phosphatase 139 H D Ammonia Troponin I C-Reactive Prot, Quant B-Natriuretic Peptide Total Protein 6.6 Albumin 4.0 Globulin 2.6 Albumin/Globulin Ratio 1.5 Triglycerides 345 H Cholesterol 183 LDL Cholesterol, Calc 79 HDL Cholesterol 35 L Cholesterol/HDL Ratio 5.2 Amylase Lipase Beta-Hydroxybutyrate/Acetoacetate Procalcitonin TSH Ur Collection Type Clean Catch Urine Color Lt-Yellow Urine Clarity Turbid A Urine pH 6.0 Ur Specific [place] 1.013 Urine Protein 1+ A Urine Glucose (UA) 4+ A Urine Ketones Negative Urine Blood Negative Urine Nitrite Negative Urine Bilirubin Negative Urine Urobilinogen (Auto) Negative Ur Leukocyte Esterase Positive Urine RBC 0 Urine WBC 90 H Ur Squamous Epith Cells < 1 Urine Bacteria Rare Ur Culture Indicated? Yes Ur Random Creatinine Ur Random Sodium Ur Random Potassium Ur Random Chloride Urine Opiates Screen Positive A Urine Fentanyl Screen Negative Ur Barbiturates Screen Negative U Amphetamin/Meth Scrn Negative U Benzodiazepines Scrn Negative U Cocaine Metab Screen Negative U Marijuana (THC) Screen Negative Ethyl Alcohol 09/25/24 09:42 WBC RBC Hgb Hct MCV MCH MCHC RDW Std Deviation Plt Count Neut % (Auto) Lymph % (Auto) [place] % (Auto) Eos % (Auto) Baso % (Auto) Neut # (Auto) Lymph # (Auto) [place] # (Auto) Eos # (Auto) Baso # (Auto) Immature Gran # (Auto) Absolute Nucleated RBC Immature Gran % Nucleated RBC % ESR PT INR APTT D-Dimer Puncture Site ABG pH ABG pCO2 ABG pO2 ABG HCO3 ABG O2 Saturation ABG Base Excess FiO2 Sodium Potassium Chloride Carbon Dioxide Anion Gap BUN Creatinine Estim Creat Clear Calc eGFR BUN/Creatinine Ratio Glucose Estimated Ave Glu mg/dL Hemoglobin A1c Calculated Osmolality Lactic Acid Calcium Corrected Calcium Magnesium Total Bilirubin AST ALT Alkaline Phosphatase Ammonia Troponin I C-Reactive Prot, Quant B-Natriuretic Peptide Total Protein Albumin Globulin Albumin/Globulin Ratio Triglycerides Cholesterol LDL Cholesterol, Calc HDL Cholesterol Cholesterol/HDL Ratio Amylase Lipase Beta-Hydroxybutyrate/Acetoacetate Procalcitonin TSH Ur Collection Type Urine Color Urine Clarity Urine pH Ur Specific [place] Urine Protein Urine Glucose (UA) Urine Ketones Urine Blood Urine Nitrite Urine Bilirubin Urine Urobilinogen (Auto) Ur Leukocyte Esterase Urine RBC Urine WBC Ur Squamous Epith Cells Urine Bacteria Ur Culture Indicated? Ur Random Creatinine 20 L Ur Random Sodium 127.0 H Ur Random Potassium 25 Ur Random Chloride 106.0 Urine Opiates Screen Urine Fentanyl Screen Ur Barbiturates Screen U Amphetamin/Meth Scrn U Benzodiazepines Scrn U Cocaine Metab Screen U Marijuana (THC) Screen Ethyl Alcohol ABG Interpretation ABG results: 09/24/24 21:58 ABG pH 7.39 ABG pCO2 55 H ABG pO2 92 ABG HCO3 33 H ABG O2 Saturation 97 ABG Base Excess 7 H Quality Measures Quality Measures VTE prophylaxis (Heparin) Assessment & Plan Assessment Current Active Medications: Generic Name Dose Route Start Last Admin Trade Name Freq PRN Reason Stop Dose Admin Acetaminophen 650 mg 09/25/24 04:37 Acetaminophen 325 Mg Tablet PO 10/25/24 04:36 Q6H PRN Fever >100 or pain 1-3 Hydrocodone Bitart/Acetaminophen 1 tab 09/25/24 04:37 Hydrocodone/Apap 10/325 Tab PO 09/30/24 04:36 Q6H PRN PAIN SCALE 4-6 (Moderate Albuterol/Ipratropium 3 ml 09/25/24 04:42 Albuterol/Ipratropium (Duoneb) Rt Joy 3 Ml Nebu INH 10/25/24 06:59 Q4HRRT PRN sob/wheezing Clopidogrel Bisulfate 75 mg 09/25/24 09:00 09/25/24 09:28 Clopidogrel Bisulfate 75 Mg Tablet PO 10/25/24 08:59 75 mg QDAY MEY Administration Dextrose 25 ml 09/25/24 04:42 Dextrose 50%-Water Inj 50 Ml Syringe IV 10/25/24 04:41 Q15MIN PRN BG 50-70 responsive npo pt Dextrose 50 ml 09/25/24 04:42 Dextrose 50%-Water Inj 50 Ml Syringe IV 10/25/24 04:41 Q15MIN PRN BG <50 OR BG <70 & pt unresponsive Diltiazem HCl 180 mg 09/25/24 09:00 Diltiazem Er 90 Mg Er Capsule PO 10/25/24 08:59 QDAY EMY Fluvastatin Sodium 20 mg 09/25/24 21:00 Fluvastatin Sodium 20 Mg Capsule PO 10/25/24 20:59 HS EMY Glucagon 1 mg 09/25/24 04:42 Glucagon Inj 1 Mg Vial IM Q15MIN PRN BG <70, and no IV access Heparin Sodium (Porcine) 5,000 unit 09/25/24 09:00 09/25/24 09:28 Heparin Sod Inj 5000 Unit/Ml Vial SC 10/09/24 08:59 5,000 unit Q12H EMY Administration Ceftriaxone Sodium/Dextrose 1 gm in 50 mls @ 100 mls/hr 09/25/24 21:00 Rocephin/D5w 1gm Iv Premix IV 10/02/24 08:59 HS EMY Sodium Chloride 500 mls @ 75 mls/hr 09/25/24 07:09 09/25/24 07:44 Ns IV 09/25/24 13:48 75 mls/hr .Q6H40M EMY Administration Insulin Human Lispro 0 unit 09/25/24 07:30 09/25/24 07:41 Insulin Lispro (Admelog) 1 Unit/0.01 Ml Unit SC 10/25/24 07:29 Not Given AC [facility] Protocol Ondansetron HCl 4 mg 09/25/24 04:37 Ondansetron Inj 2 Mg/Ml Inj 2 Ml IV 10/25/24 04:36 Q6H PRN NAUSEA OR VOMITING Protocol Sennosides 1 tab 09/25/24 04:42 Senna Tablet PO 10/25/24 08:59 QDAY PRN constipation Protocol Plan 64-year-old female with past medical history of COPD, CAD s/p two stent placements, insulin-dependent T2DM with associated neuropathy of LE, and chronic B/L cellulitis who comes to the ED BIBA from SNF for acute encephalopathy likely secondary to polypharmacy along with underlying urinary tract infection. #Acute encephalopathy, multifactorial - improving Patient is a resident at SNF; moreover, staff members noticed that she was less awake than usual and brought her to the ED While working her up, patient required Ativan during CT scan, was given flumazenil and Narcan after Narcan greatly improved patient's mentation, U tox showed opioids Encephalopathy likely multifactorial including opioid intoxication and underlying urinary tract infection Head CT showed chronic ischemic change Patient much more awake on 09/25 and passed swallow eval Plan: Avoid any sedatives including narcotics Continue treating underlying infection with IV antibiotics #Polypharmacy #Opioid intoxication Patient is on Morse 10 mg at home secondary to chronic pain related to lower back and right ankle which she sprained Patient has been at the SNF secondary to the right ankle sprain since August 06, [address] Llamas outpatient who recently started her on buprenorphine and transdermal patch for the pain Suspicion is that patient had a opioid intoxication from combination of Morse and buprenorphine Plan: Will discontinue additional opioid medications Multimodal pain management Follow-up with primary care physician for referral to pain specialist #UTI As above, patient is presenting with some acute encephalopathy which could also be exacerbated by urinary tract infection Patient apparently has some symptoms of burning sensation along with increased urinary frequency Urinalysis shows white cells, bacteria and leukocyte esterase Plan: Follow-up on urine and blood cultures Continue IV antibiotics, Rocephin 1 g daily #Acute kidney injury on CKD DDx: Prerenal versus ATN versus obstructive Pt baseline seems to be 1.2, Cr 1.8 today Likely related to poor oral intake Pt got 1L fluids in ED, gentle fluids due to hx of HF No stones seen on CT C/A/P Plan: Discontinued IV maintenance fluids Avoid nephrotoxic agents Renally dose medications Monitor with morning labs #Hx of COPD Pt denies using home oxygen at home or at the detention facility Patient is on Trelegy 1 inhalation daily Plan: DuoNebs every 6 hours as needed Will consider starting Advair in the hospital #Hx of HFpEF, G3DD #Hx of mild Pulmonary HTN #Hx of CAD s/p stents #Hypertension #Hyperlipidemia Chronic 25.5% Risk of cardiovascular event (coronary or stroke or non-fatal DE or stroke) in next 10 years. Echo from April 2024: Normal LV size and function. Estimated EF 50-55%. Grade 3 diastolic dysfunction. Mild RV dilatation. Normal RV function. Estimated RVSP 30mmHg Moderate MAC. Mildly decreased mobility of the posterior mitral valve leaflet. Mild MR, TR. IVC mildly dilatated. Plan: Continue home Cardizem ER 180 mg qday Will start simvastatin to 40 mg as ASCVD risk is high Continue home Plavix 75 mg daily Keep mag and Potassium above 2 and 4 respectively to avoid any cardiac arrhythmias #Insulin dependent type II Diabetes mellitus A1c 13.6 in Mar 2024 A1c of 12.7 on 09/25/2024 Plan: SSI #Chronic venous stasis Chronic medical condition Plan: Consider wound care referral Hospital Management Lines: PIV Diet: Carb consistent low Bowel: Senna GI prophylaxis: Not needed DVT prophylaxis: Heparin subcu Dispo: Monitoring for acute encephalopathy and IV antibiotics for UTI Code: Full Patient seen and examined with attending Dr. Merchant and senior resident Dr. Elian Mcnair, PGY-1 -- ATTESTATION: I saw and examined the patient this morning, and I agree with current management stated by the resident. Will continue to monitor patient during their stay. Patient 64-year-old female with past medical history of COPD, CAD status post 2 stents, insulin-dependent type 2 diabetes, lower extremity neuropathy and chronic bilateral cellulitis that was admitted on 09/25/2024 with acute encephalopathy likely multifactorial. Patient was found to have recently started on buprenorphine and continues to take pain medications at home for her lower back pain. CT scans of the head were negative and patient was found to have opioid positivity in the urine tox. In the ED she was given 1 dose of Narcan after which the patient became more alert and oriented. Patient has a mild UTI which is being treated. Will continue to monitor patient and adjust her regimen prior to discharge. Disclaimer: Despite multiple revisions, due to the dictation software being used, the document bellow may not be free of grammatical errors including phonetic/typographic errors. However, this does not deter from our commitment to providing health care in the patient's best interest in mind. Dr. Babar Plummer, PGY-3 Attending Provider Attestation/Addendum Elizabeth Doran, , attest that I was physically present for the higgins portions of the service and evaluated the patient with the resident and I reviewed and discussed the case with the resident and agree with the resident's findings and plans of care as documented above Patient seen and evaluated this AM. She states she is unsure why she is in the hospital. She states she was sleeping in her chair and subsequently woke up in the hospital. Patient has a buprenorphine patch on her right shoulder region. She states that she has pain all over. She admits to dysuria. Will f/u with urine culture. Patient states she has been getting up with PT at the rehab, but had sprained her right ankle which has set her back with her mobility. Will have PT work with patient. Patient is concerned about her Morse being reduced. However, explained to patient that she is receiving too much pain medication which led to her being obtunded
[2024-09-25] MEDS: ATORVASTATIN CALCIUM 20 MG TABLET 40 MG PO (21:14)
[2024-09-25] MEDS: cefTRIAXone/D5w 1gm IV premix 1 GM/50 ML BAG IV (21:15)
[2024-09-25] MEDS: PREGABALIN 50 MG CAPSULE PO (21:15)
[2024-09-26] VITALS (8 sets, daily range): BP systolic 133–174; BP diastolic 77–96; PULSE 78–98; RESP 16–93; TEMP 36–36.8; O2SAT 92–97; BMI 37.2
[2024-09-26] MEDS: HYDROcodone/APAP 10/325 TAB PO (00:56)
[2024-09-26] MEDS: PREGABALIN 50 MG CAPSULE PO ×2 (05:49→13:23)
[2024-09-26 06:20] LABS: Basophils # (Auto) 0.1 Thou/mm3 (0.0-0.2); Basophils % (Auto) 1 % (0-2.5); Eosinophils # (Auto) 0.6 Thou/mm3 (0.0-0.5); Eosinophils % (Auto) 6 % (0-10); Hematocrit 37.8 % (36.0-46.0); Hemoglobin 12.3 g/dL (12.0-16.0); Immature Granulocytes % (Auto) 1 % (0-0); Immature Granulocytes Auto 0.04 Thou/mm3 (0.00-0.00); Lymphocytes # (Auto) 1.1 Thou/mm3 (1.0-4.8); Lymphocytes % (Auto) 13 % (10-50); Mean Corpuscular HGB Conc 32.5 g/dl (31.0-37.0); Mean Corpuscular Hemoglobin 27.8 pg (25.0-35.0); Mean Corpuscular Volume 85 fL (80-100); Monocytes % (Auto) 12 % (0-12); Neutrophils % (Auto) 68 % (37-80); Nucleated Red Blood Cell % 0 /100 WBC (0); Platelet Count 346 Thou/mm3 (140-440); RDW Standard Deviation 47.1 fL (36.4-46.3); Red Blood Count 4.43 Miln/mm3 (4.00-5.20); White Blood Count 8.8 Thou/mm3 (3.6-11.0)
[2024-09-26 06:26] LABS: Partial Thromboplastin Time 29.8 Seconds (22.0-36.0); Prothrombin Time 11.2 Seconds (9.0-12.2)
[2024-09-26 06:30] LABS: Alanine Aminotransferase 25 U/L (10-49); Albumin, Serum 4.1 gm/dL (3.4-4.8); Albumin/Globulin Ratio 1.5 (1.2-2.2); Alkaline Phosphatase 133 U/L (46-116); Anion Gap 11 (7-16); Aspartate Amino Transferase 24 U/L (0-34); BUN/Creatinine Ratio 38 Ratio (12-20); Bilirubin,Total 0.3 mg/dL (0.3-1.2); Blood Urea Nitrogen 42 mg/dL (9-23); Carbon Dioxide 28.3 mMol/L (20.0-31.0); Chloride 101 mMol/L (98-107); Creatinine (Component) 1.1 mg/dL (0.6-1.3); Estimated Creatinine Clearance 58.2 mL/min (>60); Globulin 2.7 gm/dL (2.3-3.5); Glucose 117 mg/dL (74-106); Magnesium 2.2 mg/dL (1.6-2.6); Osmolality,Calculated 290 (275-295); Potassium 3.9 mMol/L (3.4-5.1); Sodium 140 mMol/L (136-145); Total Protein 6.8 gm/dL (5.7-8.2); eGFR 57 See Note
[2024-09-26] MEDS: DILTIAZEM ER 90 MG ER CAPSULE 180 MG PO (08:59)
[2024-09-26] MEDS: CLOPIDOGREL BISULFATE 75 MG TABLET PO (08:59)
[2024-09-26] MEDS: INSULIN LISPRO (AdmeLOG) 1 UNIT/0.01 ML UNIT SC (11:19)
--- NOTE | 2024-09-26 11:30 | ESDS_ITS ---
<Statement entered by Elizabeth Merchant DO - 09/27/24 08:06> I, Elizabeth Merchant DO, attest that I was physically present for the higgins portions of the service and evaluated the patient with the resident and I reviewed and discussed the case with the resident and agree with the resident's findings and plans of care as documented above Planned Discharge Date 09/26/24 DS: Providers Provider Date of admission: 09/25/24 04:27 Primary care physician: Severo Jenkins MD Admitting Provider: Ileana Dao MD Attending Provider on Admission: Elizabeth Merchant DO Consults: 09/25/24 11:50 Referral Physical Therapy Routine Comment: Physician Instructions: 09/26/24 04:10 Referral Registered Dietitian Routine Comment: Referral Wound Care Routine Comment: Attending Provider on DC: Yung Mcnair MD Discharging Provider: Yung Mcnair MD DS: Diagnosis Problem List Completed Was Problem List Reviewed/Reconciled?: Yes Hospital Course Hospital Course Hospital course: 64-year-old female with past medical history of COPD on home oxygen, coronary disease status post stent placements, insulin-dependent type 2 diabetes, chronic bilateral cellulitis secondary to PAD presented to the ED on 09/25 with acute encephalopathy at [facility] facility. In the ED, patient was febrile with a temperature of 100.1 ?F, normal heart rate, tachypneic but saturating 92% with minimal supplemental oxygen. Patient was admitted and workup for acute encephalopathy yielded likely diagnosis of multifactorial urinary tract infection along with polypharmacy and opioid intoxication. Patient was started on IV antibiotics for the UTI as urine cultures grew gram-negative rods. Patient's mental status progressively improved and upon shared decision making decision was made to follow-up the patient's [place] home medications. Patient continues to be on buprenorphine and transdermal patch for chronic pain and we will continue that. Patient will be discharged with the following strict instructions. Please take Keflex 500mg by mouth twice a day for 6 days Stop taking [place] as combination with your Buprenorphine can lead to opioid toxicity Stop taking Jardiance as this medication can increase your risk of UTI Continue taking all other home medications as prescribed Follow-up with your PCP within 1-2 weeks after discharge - PLEASE ask to be referred to pain specialist If your symptoms worsen or if you develop new chest pain, shortness of breath, dizziness, headaches or loss of consciousness - please come back to the ED immediately. Hospital Diagnosis: #Acute encephalopathy, multifactorial - improving #Polypharmacy #Opioid intoxication #UTI #Acute kidney injury on CKD #Hx of COPD #Hx of HFpEF, G3DD #Hx of mild Pulmonary HTN #Hx of CAD s/p stents #Hypertension #Hyperlipidemia #Insulin dependent type II Diabetes mellitus #Chronic venous stasis Yung Mcnair, PGY-1 Status at Discharge Overall status at discharge: patient is progressing back to baseline Time Spent with Patient Time attestation: Total time spent providing and/or coordinating discharge services: 45 minutes Time spent: Greater than 30 minutes Exam Vital Signs Temp Pulse Resp BP Pulse Ox O2 Del Method O2 Flow Rate 98.2 F 78 18 133/88 H 94 L Room Air 2.5 09/26/24 08:00 09/26/24 08:59 09/26/24 08:00 09/26/24 08:59 09/26/24 08:00 09/26/24 08:00 09/25/24 08:56 Narrative Exam Physical Exam: GENERAL: Awake, answering questions appropriately, appears stated age HEENT: NC/AT. Moist mucosa. PERRLA/EOMI. CARDIO: Heart RRR, no obvious murmurs, no JVD. PULM: No coughing or visible SOB but continues to be on 2 L nasal cannula. Lungs CTA B/L. GI: Abdomen soft, NT/ND, +BS. SKIN/MSK/EXT: Patient has bilateral lower extremity erythematous patches of varying sizes which are blanchable. No edema/amputations noted. +Pedal pulses present B/L. Onychomycosis NEURO: Oriented x3, Moves extremities x4, No focal neurologic deficits Discharge Plan Problem List Was Problem List Reviewed/Reconciled?: Yes Plan Patient Disposition: Xfer Skilled Nsg Fac (SNF) Care Plan Goals: Please take Keflex 500mg by mouth twice a day for 6 days Stop taking [place] as combination with your Buprenorphine can lead to opioid toxicity Stop taking Jardiance as this medication can increase your risk of UTI Continue taking all other home medications as prescribed Follow-up with your PCP within 1-2 weeks after discharge - PLEASE ask to be referred to pain specialist If your symptoms worsen or if you develop new chest pain, shortness of breath, dizziness, headaches or loss of consciousness - please come back to the ED immediately. Prescriptions/Referrals Prescriptions/Med Rec: New cephalexin 500 mg capsule 500 mg PO BID 6 Days Qty: 12 0RF Continued simvastatin 40 MG tablet 40 mg PO HS Qty: 0 Januvia 100 MG tablet 100 mg PO QDAY Qty: 0 fenofibrate nanocrystallized 48 mg Tablet 48 mg PO QDAY buprenorphine [Butrans] 7.5 mcg/hour Patch Weekly 7.5 mcg TOPICAL QWEEK insulin glargine 100 unit/mL (3 mL) insulin pen, sensor 40 unit subcut BID Qty: 15 1RF trazodone 50 mg tablet 50 mg PO HS minerals Tablet 1 tab PO DAILY zinc sulfate 50 mg zinc (220 mg) capsule 50 mg PO QDAY Rx Instructions: X14 DAYS TO STOP ON 09/30/24 ascorbic acid (vitamin C) 500 mg capsule 500 mg PO BID buprenorphine 15 mcg/hour patch weekly 15 mcg TOPICAL .WEEK Rx Instructions: THURSDAY insulin glargine [Lantus Solostar U-100 Insulin] 100 unit/mL (3 mL) insulin pen 50 unit subcut QAM simvastatin 10 mg tablet 10 mg PO QPM Kerendia 10 mg tablet 10 mg PO QDAY Trelegy Ellipta 200-62.5-25 mcg blister with device 1 inh inhalation QDAY insulin glargine [Lantus Solostar U-100 Insulin] 100 unit/mL (3 mL) insulin pen 75 unit subcut HS aspirin 81 mg tablet,chewable 81 mg PO QDAY diltiazem HCl [DILT-XR] 180 mg capsule,ext.rel 24h degradable 180 mg PO QDAY Rx Instructions: HOLD IF SBP IS LESS THAN 110 AND/OR PULSE IS LESS THAN 60 naloxone 4 mg/actuation spray,non-aerosol 4 mg intranasal Q2M PRN (Reason: OPIOD OVERDOSE) 30 Days Qty: 2 3RF Rx Instructions: spray 1 dose into ONE nostril; alternate nostrils w each dose until help arrives Hair, Skin, Nails with Biotin 7.5-7.5-1,250 mg-unit-mcg Tablet,Chewable 2 tab PO DAILY Stiolto Respimat 2.5-2.5 mcg/actuation Mist 2 puff INHALATION QDAY finerenone 10 mg Tablet 10 mg PO QDAY clopidogrel 75 mg Tablet 75 mg PO QDAY baclofen 20 mg Tablet 20 mg PO BID Rx Instructions: TAKE ONE TABLET BY MOUTH TWICE A DAY WITH FOOD. Centrum Women 18-400 mg-mcg Tablet 1 tab PO QDAY pantoprazole [Protonix] 40 mg tablet,delayed release (DR/EC) 40 mg PO BID Qty: 60 0RF diltiazem HCl [Tiadylt ER] 180 mg Capsule,Extended Release 24 Hr 180 mg PO DAILY ondansetron HCl 4 mg Tablet 4 mg PO DAILY PRN (Reason: nausea) mineral oil [Fleet Mineral Oil] Enema See Rx Instructions .ROUTE .COMPLEX PRN (Reason: Constipation) Rx Instructions: as needed magnesium hydroxide [Milk of Magnesia] 400 mg/5 mL Suspension 30 ml PO DAILY PRN (Reason: Constipation) cranberry 400 mg Capsule 400 mg PO DAILY ascorbic acid (vitamin C) 25 mg Tablet 25 mg PO 1XD Novolin R FlexPen 100 unit/mL (3 mL) Insulin Pen See Protocol SUBCUT 3XD Protocol: Age Greater than 75 Protocol Text: Age less than 75 years, to be administred with initial in subcutaneous dose furosemide [Lasix] 40 mg tablet 40 mg PO QDAY pregabalin [Lyrica] 50 mg capsule 150 mg PO TID Discontinued Jardiance 25 mg Tablet 25 mg PO QDAY hydrocodone-acetaminophen 10-325 mg tablet 1 tab PO Q8HR PRN (Reason: Pain) Referrals: Severo Jenkins MD [Primary Care Provider] - Patient/Caregiver Discharge Instructions Education Materials: Urinary Tract Infections in Women, Understanding Urinary Tract ..., Forming an Opioid Treatment Plan, Opioid Use Risks Print Language: Mongolian Stand Alone Forms: Esmer Award Info., Patient Portal Info Letter Discharge Order Discharge Orders: Discharge (Routine); Ordered 09/26/24 Ordered By: Yung Mcnair Quality Discharge Quality Measures VTE prophylaxis
--- NOTE | 2024-09-26 12:04 | PC.SS ---
SS has setup gurney transportation with Erin at [facility] for 2pm to [facility].? Ref# [id number].? SS has requested [facility].? SS has provided her with [facility]'s phone# and she will forward request to transportation department. Estimated time is 3-4 hours.? SS has sent patient?s facesheet and ambulance form to [facility] using [employer].? SS has spoken to Carolina at [facility] who states she has been contacted back [facility]. SS setup transportation for 2pm. Bedside nurseAnjali explained folley cath has been removed but pt still has to void. SS rescheduled transport to 5pm. [facility] is aware. Pt is aware. Suzie, patient's sister is aware. SS provided bedside nurseAnjali with [facility] phone in case transport requires to be reschedule again due to pt not voiding.
--- NOTE | 2024-09-26 15:06 | PC.NURSE ---
gave report to louis Felipe
--- NOTE | 2024-09-26 16:29 | PC.PT ---
Attempt to initiate PT evaluation at 1030. Patient does not want to get OOB at this time. As per MD, patient will dc back to SNF today. Will cancel PT evaluation.
== END 2024-09-26 17:06 | disposition skilled nursing facility (03) ==
LOC: SERX 09-25 03:57 → SERHOLD 09-25 04:45 → S3SX 09-26 08:47 → SERHOLD 09-26 08:52 → S3SX 09-26 08:53
PROVIDERS: Admitting Provider Internal Medicine; Emergency Provider Emergency Medicine; PCP Hospitalist; Visit Provider Internal Medicine
DX: N17.9 Acute kidney failure, unspecified (principal); J96.01 Acute respiratory failure with hypoxia; T40.2X5A Adverse effect of other opioids, initial encounter; S93.401A Sprain of unspecified ligament of right ankle, initial encounter; N39.0 Urinary tract infection, site not specified; N18.32 Chronic kidney disease, stage 3b; K59.00 Constipation, unspecified; J44.9 Chronic obstructive pulmonary disease, unspecified; I87.8 Other specified disorders of veins; I50.32 Chronic diastolic (congestive) heart failure; I25.10 Atherosclerotic heart disease of native coronary artery without angina pectoris; I27.20 Pulmonary hypertension, unspecified; I13.0 Hypertensive heart and chronic kidney disease with heart failure and stage 1 through stage 4 chronic kidney disease, or unspecified chronic kidney disease; G92.8 Other toxic encephalopathy; G89.29 Other chronic pain; E78.5 Hyperlipidemia, unspecified; E11.22 Type 2 diabetes mellitus with diabetic chronic kidney disease; B96.89 Other specified bacterial agents as the cause of diseases classified elsewhere; E11.40 Type 2 diabetes mellitus with diabetic neuropathy, unspecified
CPT/HCPCS: 51702; 36415; 36600; 70450; 71045; 71250; 74176; 80053; 80061; 80307; 80320; 81001; 82010; 82140; 82150; 82436; 82570; 82803; 83036; 83605; 83690; 83735; 83880; 84100; 84133; 84145; 84300; 84443; 84484; 85025; 85379; 85610; 85652; 85730; 86140; 87040; 87077; 87086; 87186; 87400; 87811; 93005; 96361; 96365; 96372; 96374; 96375; 99291; G0378; J0696; J1643; J1815; J2060; J2310; J2470; J3490; J7030; J7050; A9270; G0480

== ENCOUNTER 2024-12-09 00:54 | Inpatient (IN) | payer MEDICARE, MEDICAID, SELFPAY ==
[2024-12-09] VITALS (13 sets, daily range): BP systolic 122–168; BP diastolic 52–106; PULSE 75–91; RESP 15–23; TEMP 36.3–37.1; O2SAT 94–100; BMI 33.4
--- NOTE | 2024-12-09 01:16 | PD.EDAMS ---
Altered Mental Status RME/HPI General Chief Complaint: Altered Mental Status Stated Complaint: AMS Time Seen by Provider: 12/09/24 01:19 Arrival date/time: 12/09/24 00:54 RME / HPI RME / HPI narrative: This section includes all my notes and documentations, including HPI, PE, and ED course. Abdelrahman Patino MD HPI: 64yo female with a history of COPD on home oxygen, CAD s/p stent placements, DMII, PAD BIBA from home presents to the ED for a chief complaint of AMS. Per EMS, family on scene found the patient unconscious, lying on the bathroom floor. With EMS, blood sugar was 390. Family reports the patient was falling asleep all day. Normally, she is alert and oriented and ambulatory with a cane. ROS: Unobtainable due to the patient's AMS. Physical Exam: General: Patient is lethargic. Hypoxia noted. Eyes: Conjunctivae and lids clear. EOMI. PERRL. ENT: No signs of head trauma. Neck: Supple. No carotid bruit. No JVD. Heart: RRR. Lungs: No respiratory distress. Good air movement. No rhonchi, wheezing, rales. Abdomen: Soft and nontender. Normal bowel sounds. No distension. No rebound or guarding. Skin: Warm and dry. Neuro: Suboptimal exam due to severe lethargy. I reviewed EMS. I ordered IV fluid and insulin and diagnostic tests. At 6 AM on 12/09/2024, the care of the patient was transferred to Dr. Abbasi. Abdelrahman Patino MD Related Data Home Medications ?Medication ?Instructions ?Recorded ?Confirmed simvastatin 40 mg tablet 40 mg PO HS CHOLESTEROL ##0 06/02/14 04/15/24 sitagliptin phosphate 100 mg 100 mg PO QDAY DIABETES #0 tabs 06/02/14 04/15/24 tablet (Januvia) fenofibrate nanocrystallized 48 mg 48 mg PO QDAY 07/18/19 09/25/24 tablet ascorbic acid 7.5 mg-vit E 7.5 2 tab PO DAILY 10/10/23 04/15/24 unit-biotin 1,250 mcg chewable tablet (Hair,Skin,Nails with Biotin) finerenone 10 mg tablet 10 mg PO QDAY 10/10/23 04/15/24 tiotropium 2.5 mcg-olodaterol 2.5 2 puff inhalation QDAY 10/10/23 04/15/24 mcg/actuation mist for inhalation (Stiolto Respimat) baclofen 20 mg tablet 20 mg PO BID 11/16/23 09/25/24 clopidogrel 75 mg tablet 75 mg PO QDAY 11/16/23 09/25/24 multivitamin-ferrous 1 tab PO QDAY 11/16/23 04/15/24 fumarate-folic acid 18 mg-400 mcg tablet (Centrum Women) buprenorphine 7.5 mcg/hour weekly 7.5 mcg topical QWEEK 02/21/24 04/15/24 transdermal patch (Butrans) ascorbic acid (vitamin C) 25 mg 25 mg PO 1XD 04/15/24 04/15/24 tablet cranberry fruit 400 mg capsule 400 mg PO DAILY 04/15/24 04/15/24 diltiazem HCl 180 mg capsule,24 180 mg PO DAILY 04/15/24 04/15/24 hr,extended release (Tiadylt ER) furosemide 40 mg tablet (Lasix) 40 mg PO QDAY 04/15/24 09/25/24 insulin regular human 100 unit/mL See Protocol subcut 3XD 04/15/24 04/15/24 (3 mL) subcutaneous pen (Novolin R FlexPen) magnesium hydroxide 400 mg/5 mL 30 ml PO DAILY PRN Constipation 04/15/24 04/15/24 oral suspension (Milk of Magnesia) mineral oil (Fleet Mineral Oil See Rx Instructions .Route 04/15/24 04/15/24 enema) .COMPLEX PRN Constipation ondansetron HCl 4 mg tablet 4 mg PO DAILY PRN nausea 04/15/24 04/15/24 pregabalin 50 mg capsule (Lyrica) 150 mg PO TID 04/15/24 09/25/24 ascorbic acid (vitamin C) 500 mg 500 mg PO BID 09/25/24 09/25/24 capsule aspirin 81 mg chewable tablet 81 mg PO QDAY 09/25/24 09/25/24 buprenorphine 15 mcg/hour weekly 15 mcg topical .WEEK 09/25/24 09/25/24 transdermal patch diltiazem HCl 180 mg 180 mg PO QDAY 09/25/24 09/25/24 capsule,extended release 24 hr, controlled (DILT-XR) finerenone 10 mg tablet (Kerendia) 10 mg PO QDAY 09/25/24 09/25/24 fluticasone fur. 200 mcg-umeclid 1 inh inhalation QDAY 09/25/24 09/25/24 62.5 mcg-vilant 25 mcg inhalat.powder (Trelegy Ellipta) insulin glargine 100 unit/mL (3 50 unit subcut QAM 09/25/24 09/25/24 mL) subcutaneous pen (Lantus Solostar U-100 Insulin) insulin glargine 100 unit/mL (3 75 unit subcut HS 09/25/24 09/25/24 mL) subcutaneous pen (Lantus Solostar U-100 Insulin) minerals 1 tab PO DAILY 09/25/24 09/25/24 simvastatin 10 mg tablet 10 mg PO QPM 09/25/24 09/25/24 trazodone 50 mg tablet 50 mg PO HS 09/25/24 09/25/24 zinc sulfate 50 mg zinc (220 mg) 50 mg PO QDAY 09/25/24 09/25/24 capsule Previous Rx's ?Medication ?Instructions ?Recorded pantoprazole 40 mg tablet,delayed 40 mg PO BID #60 tabs 11/17/23 release (Protonix) insulin glargine 100 unit/mL (3 40 unit (0.4 mL) subcut BID #15 mL 02/21/24 mL) subcutaneous pen, sensor naloxone 4 mg/actuation nasal spray 4 mg intranasal Q2M PRN OPIOD 09/26/24 OVERDOSE 1 month #2 ea Allergies Allergy/AdvReac Type Severity Reaction Status Date / Time venom-honey bee Allergy Severe Anaphylaxis Verified 02/19/24 10:57 venom-wasp Allergy Severe Anaphylaxis Verified 02/19/24 10:57 codeine AdvReac Severe PROJECTILE Verified 02/19/24 10:57 VOMITING Sulfa (Sulfonamide AdvReac Severe Nausea Verified 02/19/24 10:57 Antibiotics) Review of Systems Review of Systems Systems Reviewed: All systems reviewed, normal except as documented Past Medical History Past Medical History NEUROLOGIC: Positive Neurological Disorders, Cerebrovascular Accident, Peripheral Neuropathy and Migraine; Negative Transient Ischemic Attacks (TIA), Dementia, Alzheimer's Disease, Parkinson's Disease, Brain Tumor, Meningitis, Seizures, Epilepsy, Multiple Sclerosis, Cerebral Palsy, Amyotrophic Lateral Sclerosis (ALS/Kavita Gehrig's), Guillain-River Syndrome, Spina Bifida, Paralysis, Berger's Palsy, Subdural Hematoma, Head Trauma, Spinal Cord Injury or Traumatic Brain Injury CARDIAC: Positive Cardiac Disorders, Myocardial Infarction (Pt has 3 stents), Cardiac Arrhythmia, Angina, Hypercholesterolemia, Congestive Heart Failure, Edema and Hypertension; Negative Atrial Fibrillation, Heart Murmur, Coronary Artery Disease, Atherosclerotic Heart Disease, Peripheral Vascular Disease, Aneurysm, Congenital Heart Disease, Valvular Heart Disease, Rheumatic Fever, Cardiomyopathy, Pericarditis, Cellulitis, Deep Vein Thrombosis, Hypotension or Varicose Veins RESPIRATORY: Positive Chronic Obstructive Pulmonary Disease (COPD), Bronchitis and Pneumonia; Negative Asthma, Emphysema, Pulmonary Fibrosis, Cystic Fibrosis, Tuberculosis, Pulmonary Embolism, Pulmonary Edema or Sleep Apnea GASTROINTESTINAL: Positive Gastrointestinal Disorders, Cirrhosis, Gall Bladder Disease, Irritable Bowel and Hemorrhoids; Negative Hepatitis, Pancreatitis, Celiac Disease, Gastrointestinal Bleed, Esophageal Varices, Hendrickson's Esophagus, Colitis, Ulcerative Colitis, Diverticulitis, Diverticulosis, Ulcer, Colorectal Cancer, Crohn's Disease, Obstructive Bowel, Hiatal Hernia, Gastroesophageal Reflux Disease or Obesity GENITOURINARY: Negative Genitourinary Disorders, Renal Disease, Kidney Stones, Polycystic Kidney Disease, Neurogenic Bladder, Inguinal Hernia, Dialysis or Prostate Cancer REPRODUCTIVE: Positive Previous Pregnancies; Negative Breast Cancer, Endometriosis, Genital Herpes, Gonorrhea, Pelvic Inflammatory Disease, Syphilis, Testicular Cancer or Uterine Prolapse MUSCULOSKELETAL: Positive Musculoskeletal Disorders and Arthritis; Negative Muscular Dystrophy, Myasthenia Gravis, Marfan's Syndrome, Bone Cancer, Rheumatoid Arthritis, Osteoporosis, Degenerative Disk Disease, Gout, Scoliosis, Carpal Tunnel Syndrome, Fibromyalgia, Fractures, Degenerative Joint Disease, Osteomyelitis or Poliovirus ENT: Positive Cataracts; Negative Glaucoma, Blind, Retinal Detachment, Macular Degeneration, Ear Infection, Deafness, Head Trauma or Eye Prosthesis ENDOCRINE: Positive Endocrine Disorders and Diabetes Mellitus Type 2; Negative Diabetes Mellitus Type 1, Hypoglycemia, Clio's Syndrome, Auburn's Disease, Hyperthyroidism, Hypothyroidism, Parathyroid Disease, Pituitary Disease, Systemic Lupus Erythematosus, Syndrome of Inappropriate Antidiuretic Hormone (SIADH), Adrenal Disease or Graves' Disease HEMATOLOGIC: Negative Blood Disorders, Anemia, Leukemia, Hemophilia, Thalassemia, Sickle Cell Disease or Clotting Problems PSYCHO/SOCIAL: Negative Psychiatric Problems, Schizophrenia, Recreational Drug Use, Bipolar Disorder, Depression, Anxiety, Behavior Problems, Self-Mutilation, Attention Deficit Disorder, Attention Deficit Hyperactivity Disorder, Depression, Post Traumatic Stress Disorder or Eating Disorder OTHER HISTORY: Positive Hospitalization, Shingles, Falls, Blood Transfusions and Chicken Pox; Negative Autoimmune Disease, Down Syndrome, Autism, Developmental Delay, Blood Transfusion Reaction, Anesthesia Reactions, Organ Transplant, Chemotherapy, Radiation Therapy, Hyperbaric Therapy, MRSA, VRSA, Vancomycin-Resistant Enterococci, Human Immunodeficiency Virus (HIV), Measles, Mumps, Rubella (Greek Measles), Pertussis, Clostridium Difficile, Cancer, Breast Cancer, Cervical Cancer, Colorectal Cancer, Lung Cancer, Ovarian Cancer, Prostate Cancer or Testicular Cancer Family History FAMILY HISTORY: Positive Family Respiratory Disorders and Family Cancer; Negative Family Psychiatric Problems, Family Cardiac Disorders, Family Gastrointestinal Problems, Family Surgery or Family Anesthesia Reaction Surgical History SURGICAL: Positive Coronary Stent, Cardiac Catheterization, Angiogram, Eye Surgery, Oral Surgery and Abdominal Surgery; Negative Cardiac Surgery, Open Heart Surgery, Coronary Artery Bypass Graft, Valve Replacement, Vascular Surgery, Pacemaker, Auto Implanted Cardiovert Defib, Carotid Endarterectomy, Endocrine Surgery, Thyroidectomy, Ear Surgery, Tympanostomy Tube, Nose Surgery, Tonsillectomy, Adenoidectomy, Cochlear Implant, Corneal Transplant, Throat Surgery, Tracheostomy, Gastric Bypass Surgery, Gastrostomy, Bowel Surgery, Nephrectomy, Transurethral Resection, Joint Replacement, Amputation, Open Reduction Internal Fixation, Arthroscopy, Neurologic Surgery, Brain Shunt, Mastectomy, Lumpectomy, Hysterectomy, Tubal Ligation, Section, Vasectomy or Organ Transplant Social History SMOKING STATUS: Former smoker SUBSTANCE USE: does not use ED Exam Narrative Physical exam: As noted in HPI. Course Quality Measures none Orders Category Date Time Status Bedside COVID-19 Antigen Test NOW Care 12/09/24 01:19 Active Bedside Influenza A&B Antigen Test NOW Care 12/09/24 01:19 Completed EKG (ED ONLY) *Do not use* NOW Care 12/09/24 01:20 Completed Glucose [Bedside Blood Glucose] NOW Care 12/09/24 01:19 Active Saline [Insert IV] NOW Care 12/09/24 01:19 Active Straight [In and Out Catheter] X1 Care 12/09/24 01:[address] cervical spine wo con Stat Exams 12/09/24 01:[address] chest abdomen pelvis wo Stat Exams 12/09/24 01:[address] facial bones wo con Stat Exams 12/09/24 01:[address] head/brain wo con Stat Exams 12/09/24 01:[address] lumbar spine wo con Stat Exams 12/09/24 01:[address] thoracic spine wo con Stat Exams 12/09/24 01:21 Ordered EKG (ED Only) Stat Exams 12/09/24 01:20 Draft ABG [Arterial Blood Gas] Stat Lab 12/09/24 01:59 Completed Alcohol, Blood Medical Stat Lab 12/09/24 01:49 Completed Ammonia Stat Lab 12/09/24 01:49 Completed BNP [B-Type Natriuretic Peptide] Stat Lab 12/09/24 01:49 Completed Beta Hydroxybutyrate Stat Lab 12/09/24 01:49 Completed Bilirubin,Direct Stat Lab 12/09/24 01:49 Completed Blood Culture (Lab) Stat Lab 12/09/24 01:54 Received CBC Stat Lab 12/09/24 01:49 Completed CK [Creatine Kinase] Stat Lab 12/09/24 01:49 Completed CMP [Comprehensive Metabolic Panel] Stat Lab 12/09/24 01:49 Completed CRP [C-Reactive Protein] Stat Lab 12/09/24 01:49 Completed Drug Screen,Urine Stat Lab 12/09/24 02:25 Completed ESR [Sed Rate (ESR)] Stat Lab 12/09/24 01:49 Completed Free T4 (Free Thyroxine) Stat Lab 12/09/24 01:49 Completed Hemoglobin A1C [Glycohemoglobin w (eAG)] Stat Lab 12/09/24 01:49 Completed Lactate (Lactic Acid) Stat Lab 12/09/24 01:49 Results Magnesium Stat Lab 12/09/24 01:49 Completed PT [Prothrombin Time with INR] Stat Lab 12/09/24 01:49 Completed PTT [Partial Thromboplastin Time] Stat Lab 12/09/24 01:49 Completed Procalcitonin Stat Lab 12/09/24 01:49 Completed TSH [Thyroid Stimulating Hormone] Stat Lab 12/09/24 01:49 Completed Troponin I Stat Lab 12/09/24 01:49 Completed UA, C/S IF [Urinalysis, C/S if Indicated] Stat Lab 12/09/24 02:25 Completed Insulin Regular Med 12/09/24 02:51 Discontinued 10 unit IV X1 ONE Insulin Regular Med 12/09/24 03:49 Discontinued 5 unit IV X1 ONE Sodium Chloride 0.9% 1000 ml [Ns] 1,000 ml Med 12/09/24 01:20 Discontinued IV 999 mls/hr Vital Signs Vital signs: Vital Signs Temperature 97.6 F 12/09/24 01:45 Pulse Rate 75 12/09/24 01:45 Respiratory Rate 16 12/09/24 01:45 Blood Pressure 144/84 H 12/09/24 01:45 Pulse Oximetry (%) 95 12/09/24 01:45 Oxygen Delivery Method Nasal Cannula 12/09/24 01:45 Oxygen Flow Rate 2 12/09/24 01:45 Altered Mental Status MDM Narrative MDM Narrative:: 64yo female with a history of COPD on home oxygen, CAD s/p stent placements, DMII, PAD BIBA from home presents to the ED for a chief complaint of AMS. Per EMS, family on scene found the patient unconscious, lying on the bathroom floor. With EMS, blood sugar was 390. Full ROS is unobtainable due to the patient's AMS. No other complaints reported. Patient data External records reviewed:: [facility] previous records (Per chart review, patient was admitted here on 09/24/24 for AMS.) Clinical information provided by:: EMS Social determinants that could affect healthcare access:: none Patient has the following chronic illnesses:: COPD on home oxygen, CAD s/p stent placements, DM, PAD How is presenting disease/condition affected by chronic disease/condition?: exacerbated by Evaluation data The following diagnostics were reviewed and interpreted by me:: lab results and EKG tracing(s) (My interpretation of the EKG is: Sinus rhythm (80 bpm) with nonspecific ST-T changes. Abdelrahman Patino MD) Lab and/or radiology exams considered but not ordered:: none Interpretation Summary: Complete diagnostic test results are pending. Medications / Prescriptions Medications or Prescriptions considered but not ordered:: none Medication administrations:: Medication Administration History Discontinued Medications Sodium Chloride (Ns) 1,000 mls @ 999 mls/hr IV .Q1H1M ONE Stop: 12/09/24 02:20 Last Infusion: 12/09/24 02:51 Dose: Infused Documented By: Admin: 12/09/24 01:45 Dose: 999 mls/hr Documented By: NICO Insulin Human Regular (Insulin Hum Regular 1 Unit/0.01 Ml (Per Unit)) 10 unit IV X1 ONE Stop: 12/09/24 02:52 Last Admin: 12/09/24 03:49 Dose: Not Given Documented By: NICO Non-Admin Reason: Cancelled by Provider Insulin Human Regular (Insulin Hum Regular 1 Unit/0.01 Ml (Per Unit)) 5 unit IV X1 ONE Stop: 12/09/24 03:50 Last Admin: 12/09/24 03:52 Dose: 5 unit Documented By: NICO Co-signed By: MEIR FERGUSON, Insulin Consultations Consultation(s) initiated? (list below): No Diagnosis Differential diagnosis altered mental status: alcoholic intoxication, altered mental status, delirium, dementia, hypoglycemia, hyponatremia, subarachnoid hemorrhage and sepsis Most likely diagnosis given after review of the tests above:: Complete diagnostic test results are pending. Admission Indicated Admission indicated?: not indicated Explain why admission is indicated or not indicated:: Complete diagnostic test results are pending. Admission Request Was there a request for admission?: No Disposition Plan Disposition Plan: other (specify) (Care of the patient was transferred to mt at shift physician.) Discharge Plan Prescriptions/Referrals Prescriptions/Med Rec: No Action simvastatin 40 MG tablet 40 mg PO HS Qty: 0 Januvia 100 MG tablet 100 mg PO QDAY Qty: 0 fenofibrate nanocrystallized 48 mg Tablet 48 mg PO QDAY buprenorphine [Butrans] 7.5 mcg/hour Patch Weekly 7.5 mcg TOPICAL QWEEK insulin glargine 100 unit/mL (3 mL) insulin pen, sensor 40 unit subcut BID Qty: 15 1RF trazodone 50 mg tablet 50 mg PO HS minerals Tablet 1 tab PO DAILY zinc sulfate 50 mg zinc (220 mg) capsule 50 mg PO QDAY Rx Instructions: X14 DAYS TO STOP ON 09/30/24 ascorbic acid (vitamin C) 500 mg capsule 500 mg PO BID buprenorphine 15 mcg/hour patch weekly 15 mcg TOPICAL .WEEK Rx Instructions: THURSDAY insulin glargine [Lantus Solostar U-100 Insulin] 100 unit/mL (3 mL) insulin pen 50 unit subcut QAM simvastatin 10 mg tablet 10 mg PO QPM Kerendia 10 mg tablet 10 mg PO QDAY Trelegy Ellipta 200-62.5-25 mcg blister with device 1 inh inhalation QDAY insulin glargine [Lantus Solostar U-100 Insulin] 100 unit/mL (3 mL) insulin pen 75 unit subcut HS aspirin 81 mg tablet,chewable 81 mg PO QDAY diltiazem HCl [DILT-XR] 180 mg capsule,ext.rel 24h degradable 180 mg PO QDAY Rx Instructions: HOLD IF SBP IS LESS THAN 110 AND/OR PULSE IS LESS THAN 60 naloxone 4 mg/actuation spray,non-aerosol 4 mg intranasal Q2M PRN (Reason: OPIOD OVERDOSE) 30 Days Qty: 2 3RF Rx Instructions: spray 1 dose into ONE nostril; alternate nostrils w each dose until help arrives Hair, Skin, Nails with Biotin 7.5-7.5-1,250 mg-unit-mcg Tablet,Chewable 2 tab PO DAILY Stiolto Respimat 2.5-2.5 mcg/actuation Mist 2 puff INHALATION QDAY finerenone 10 mg Tablet 10 mg PO QDAY clopidogrel 75 mg Tablet 75 mg PO QDAY baclofen 20 mg Tablet 20 mg PO BID Rx Instructions: TAKE ONE TABLET BY MOUTH TWICE A DAY WITH FOOD. Centrum Women 18-400 mg-mcg Tablet 1 tab PO QDAY pantoprazole [Protonix] 40 mg tablet,delayed release (DR/EC) 40 mg PO BID Qty: 60 0RF diltiazem HCl [Tiadylt ER] 180 mg Capsule,Extended Release 24 Hr 180 mg PO DAILY ondansetron HCl 4 mg Tablet 4 mg PO DAILY PRN (Reason: nausea) mineral oil [Fleet Mineral Oil] Enema See Rx Instructions .ROUTE .COMPLEX PRN (Reason: Constipation) Rx Instructions: as needed magnesium hydroxide [Milk of Magnesia] 400 mg/5 mL Suspension 30 ml PO DAILY PRN (Reason: Constipation) cranberry fruit 400 mg Capsule 400 mg PO DAILY ascorbic acid (vitamin C) 25 mg Tablet 25 mg PO 1XD Novolin R FlexPen 100 unit/mL (3 mL) Insulin Pen See Protocol SUBCUT 3XD Protocol: Age Greater than 75 Protocol Text: Age less than 75 years, to be administred with initial in subcutaneous dose furosemide [Lasix] 40 mg tablet 40 mg PO QDAY pregabalin [Lyrica] 50 mg capsule 150 mg PO TID Referrals: Wally Llamas MD [Primary Care Provider] - In 1 week Problem List Clinical Impression: Altered mental status Patient/Caregiver Discharge Instructions Print Language: Palestinian
--- NOTE | 2024-12-09 01:20 | EKG_ITS ---
[facility] Test Date: 2024-12-09 Pat Name: PLACIDO HERNANDES Department: Room: - Gender: Female Ferry[employer] Operator: : 1960 Requested By: Abdelrahman Moser Order Number: [id number] Reading MD: Abdelrahman Moser Measurements Intervals [place] Rate: 80 P: 33 PA: 201 QRS: 40 QRSD: 100 T: 81 QT: 362 QTc: 418 Interpretive Statements SINUS RHYTHM NONSPECIFIC T-WAVE ABNORMALITY Compared to ECG 09/24/2024 22:51:20 T-wave abnormality now present Ectopic atrial rhythm no longer present /store/S0/[id number]/[id number]
--- NOTE | 2024-12-09 01:20 | XR_ITS ---
Examination: CT chest, without intravenous contrast. CT abdomen, without intravenous contrast. CT pelvis, without intravenous contrast. 2-D sagittal and coronal reconstructions. 3-D reconstructions. Date and time of exam:December 09, 2024, 0721 hours INDICATIONS: Patient fell last night with age of the chest and abdomen, chest pain abdomen pain CTDI vol (mgy) 21 DLP (MGycm)347 Technique: Multiple CT images, 3.0 mm slice thickness, obtained chest, abdomen, pelvis, with the high-resolution 64 slice scanner.. Sagittal and coronal 2-D reconstructions are obtained. 3-D reconstructions Low dose protocols were performed. One or more of the following dose reduction techniques were used; automated exposure control, adjustment of the mA and/or KV according to patient size, use of iterative reconstruction technique. Findings: Prominent calcification left anterior descending left main coronary artery No hemopericardium 17 mm nodule in the right middle lobe 12 mm nodule in the right upper lobe No pneumothorax or pulmonary contusion No hemothorax The manubrium, the body of the sternum intact and Chronic compressive deformities T9, ribs intact No acute thoracic lumbar or sacral fracture No liver or splenic or renal laceration Significant bilateral renal scar formation Abdominal aorta intact No free blood in the abdomen or pelvis Absent gallbladder Heavy abdominal aortic calcification, abdominal aorta appears intact 4 cm fat-containing above the hernia Negative for pneumoperitoneum No pericecal inflammatory change Atrophic uterus Urinary bladder intact Bones of the pelvis hips intact IMPRESSION: Thoracic aorta and pulmonary arteries intact No hemopericardium, pneumothorax, pulmonary contusion or hemothorax No abdominal parenchymal laceration Abdominal aorta intact No free body in the abdomen or pelvis Pulmonary nodules as above, recommend 3 month follow-up CT chest without contrast
--- NOTE | 2024-12-09 01:20 | XR_ITS ---
Examination: CT brain head without contrast. 2-D sagittal coronal reconstructions Date and time of exam:December 09, 2024, 0711 hours Comparison September 25, 2024 INDICATIONS: Patient fell last night with injury to the head, head pain CTDI: vol (mGy):46.1 DLP: (mGycm):877 Technique: Multiple CT axial sections of the brain have been obtained, 5 mm slice thickness. Contrast has not been administered. 2-D sagittal, coronal reconstructions have been obtained Low dose protocols were performed. One or more of the following dose reduction techniques were used; automated exposure control, adjustment of the mA and/or KV according to patient size, use of iterative reconstruction technique. Findings: No significant ventricular enlargement. Intra-axial or extra-axial hemorrhage density is not seen. No mass effect or midline shift Basal cisterns are not remarkable. Fourth ventricle is midline. Cranial vault intact. Impression: Negative for acute hemorrhage, mass effect or midline shift
--- NOTE | 2024-12-09 01:20 | XR_ITS ---
Examination: CT maxillofacial, without intravenous contrast. 2-D sagittal reconstructions. 3-D reconstructions. Date and time of exam:December 09, 2024, 0711 hours INDICATIONS: Patient fell last night with increase the face, facial pain CTDI: vol (mGy):27.4 DLP: (mGycm):4090 Technique: Multiple axial images of maxillofacial region, 3.0 mm slice thickness. 2-D sagittal and coronal reconstructions. 3-D reconstructions. Low dose protocols were performed. One or more of the following dose reduction techniques were used; automated exposure control, adjustment of the mA and/or KV according to patient size, use of iterative reconstruction technique. Findings: Frontal bone frontal sinuses intact No nasal bone fractures Orbital rims appear intact No depression zygomatic arches Pterygoid plates maxilla and the mandible intact The optic globes appear intact Impression: No acute facial fracture.
--- NOTE | 2024-12-09 01:20 | XR_ITS ---
Examination: CT cervical spine without contrast 2-D sagittal reconstructions 2-D coronal reconstructions 3-D reconstructions. Exam date and time:December 09, 2024 0711 hours INDICATIONS: Patient fell last night with injury to the neck, neck pain CTDI:vol (mGy) 17 DLP: (mGycm) 327 Technique: Multiple 2 mm axial sections of the cervical spine have been obtained. The coronal and sagittal reconstructions have been obtained. 3-D reconstructions have been obtained. Low dose protocols were performed. One or more of the following dose reduction techniques were used; automated exposure control, adjustment of the mA and/or KV according to patient size, use of iterative reconstruction technique. Findings: Axial sections demonstrate intact base of the skull. C1 exhibit satisfactory relationship to the odontoid. No acute cervical vertebral body fracture seen. Alignment posterior spinous processes satisfactory. Impression: No acute cervical fracture.
--- NOTE | 2024-12-09 01:21 | XR_ITS ---
Examination: CT lumbar spine, without contrast. 2-D sagittal reconstructions. 2-D coronal reconstructions. 3-D reconstructions. Date and time of exam: December 09, 2024 0715 hours INDICATIONS: Patient fell last night with injury to lower back, lower back pain CTDI: vol (mGy):23 DLP: (mGycm):2393 Technique: Multiple 1.25 mm axial sections of the lumbar spine without intravenous contrast have been obtained. 2-D sagittal and coronal reconstructions have been obtained. 3-D reconstructions have been obtained. Low dose protocols were performed. One or more of the following dose reduction techniques were used; automated exposure control, adjustment of the mA and/or KV according to patient size, use of iterative reconstruction technique. Findings: Severe osteopenia. Satisfactory alignment lumbar vertebral bodies. No lumbar vertebral body compression fracture. Lumbar pedicles and laminae appear intact L5-S1 3 mm central lumbar disc bulge L4-L5 4 mm central lumbar disc bulge IMPRESSION: No acute lumbar fracture
--- NOTE | 2024-12-09 01:21 | XR_ITS ---
Examination: CT thoracic spine, without contrast. 2-D sagittal reconstructions. 2-D coronal reconstructions. 3-D reconstructions. Date and time of exam:December 09, 2024 0715 hours INDICATIONS: Patient fell last night with injury to the mid back, mid back pain CTDI: vol (mGy):59 DLP: (mGycm):2013 Technique: Multiple 1.25 mm axial sections of the lumbar spine without intravenous contrast have been obtained. 2-D sagittal and coronal reconstructions have been obtained. 3-D reconstructions have been obtained. Low dose protocols were performed. One or more of the following dose reduction techniques were used; automated exposure control, adjustment of the mA and/or KV according to patient size, use of iterative reconstruction technique. Findings: Severe osteopenia Adequate alignment thoracic vertebral bodies Chronic depression deformity T9 No acute thoracic fracture No focal thoracic disc protrusion IMPRESSION: No acute thoracic fracture
[2024-12-09] MEDS: SODIUM CHLORIDE 0.9% 1000 ML 1,000 ML 999 ML IV (01:45)
[2024-12-09 02:02] LABS: Lactate (Lactic Acid) 2.2 mMol/L (0.4-2.0)
[2024-12-09 02:04] LABS: Base Excess 4 (-3-3); HCO3 29 mEq/L (20-26); Inspired Oxygen, FIO2 21 %; O2 Saturation 95 % (91-98); PCO2 44 mmHg (32.0-48.0); PO2 70 mmHg (83-108); pH, Arterial 7.43 (7.35-7.45)
[2024-12-09 02:09] LABS: Basophils # (Auto) 0.1 Thou/mm3 (0.0-0.2); Basophils % (Auto) 1 % (0-2.5); Eosinophils # (Auto) 0.3 Thou/mm3 (0.0-0.5); Eosinophils % (Auto) 3 % (0-10); Hemoglobin 14.2 g/dL (12.0-16.0); Immature Granulocytes % (Auto) 1 % (0-0); Immature Granulocytes Auto 0.05 Thou/mm3 (0.00-0.00); Lymphocytes # (Auto) 0.7 Thou/mm3 (1.0-4.8); Lymphocytes % (Auto) 8 % (10-50); Mean Corpuscular HGB Conc 33.8 g/dl (31.0-37.0); Mean Corpuscular Hemoglobin 28.1 pg (25.0-35.0); Mean Corpuscular Volume 83 fL (80-100); Monocytes # (Auto) 0.9 Thou/mm3 (0.0-0.8); Monocytes % (Auto) 10 % (0-12); Neutrophils % (Auto) 78 % (37-80); Nucleated Red Blood Cell % 0 /100 WBC (0); Platelet Count 354 Thou/mm3 (140-440); RDW Standard Deviation 45.6 fL (36.4-46.3); Red Blood Count 5.06 Miln/mm3 (4.00-5.20)
[2024-12-09 02:17] LABS: Inspired O2, VO2 Liters 2 L/min; Puncture Site Left Radial
[2024-12-09 02:18] LABS: Partial Thromboplastin Time 21.8 Seconds (22.0-36.0); Prothrombin Time 11.1 Seconds (9.0-12.2)
[2024-12-09 02:18] LABS: Allen Test Performed/OK
[2024-12-09 02:22] LABS: B-Type Natriuretic Peptide 30 pg/mL (0-100)
[2024-12-09 02:25] LABS: Ammonia < 10 uMol/L (11-32)
[2024-12-09 02:26] LABS: Sed Rate (ESR) 61 mm/hr (0-30)
[2024-12-09 02:28] LABS: Beta Hydroxybutyrate 0.1 mmol/L (<0.6)
[2024-12-09 02:35] LABS: Alanine Aminotransferase 12 U/L (10-49); Albumin, Serum 4.8 gm/dL (3.4-4.8); Albumin/Globulin Ratio 1.8 (1.2-2.2); Alcohol, Blood Medical < 3.0 mg/dL (0-10.0); Alkaline Phosphatase 112 U/L (46-116); Anion Gap 10 (7-16); Aspartate Amino Transferase 15 U/L (0-34); BUN/Creatinine Ratio 23 Ratio (12-20); Bilirubin,Direct 0.1 mg/dL (0.0-0.3); Bilirubin,Total 0.4 mg/dL (0.3-1.2); Blood Urea Nitrogen 63 mg/dL (9-23); C-Reactive Protein 1.8 mg/dL (0.0-0.9); Calcium 9.8 mg/dL (8.3-10.6); Calcium (Corrected) 9.8 mg/dL (8.5-10.1); Carbon Dioxide 30.8 mMol/L (20.0-31.0); Chloride 94 mMol/L (98-107); Creatine Kinase 62 U/L (34-171); Creatinine (Component) 2.7 mg/dL (0.6-1.3); Estimated Creatinine Clearance 24.1 mL/min (>60); Free T4 (Free Thyroxine) 1.28 ng/dL (0.89-1.76); Globulin 2.6 gm/dL (2.3-3.5); Glucose 368 mg/dL (74-106); Magnesium 2.5 mg/dL (1.6-2.6); Osmolality,Calculated 303 (275-295); Potassium 5.3 mMol/L (3.4-5.1); Procalcitonin 0.23 ng/ml (0.0-0.49); Sodium 135 mMol/L (136-145); Thyroid Stimulating Hormone 2.22 uIU/mL (0.55-4.78); Total Protein 7.4 gm/dL (5.7-8.2); Troponin I 0.036 ng/mL (0.0-0.045); eGFR 19 See Note
[2024-12-09 02:38] LABS: Glucose Estimated Average 272 mg/dL (80-131); Hemoglobin A1C 11.1 % Hgb (4.8-6.0)
[2024-12-09 03:16] LABS: Collection Type, Urine Clean Catch
[2024-12-09 03:24] LABS: Bilirubin,Urine Negative (Negative); Blood,Urine Negative (Negative); Clarity,Urine Clear (Clear/Hazy); Color,Urine Colorless (Lt Yel-Yel); Culture Indicated,Urine Not Indicated; Glucose, Urine 4+ (Negative); Ketones,Urine Negative (Negative); Leukocyte Esterase,Urine Negative (Negative); Nitrite,Urine Negative (Negative); Protein,Urine Trace (Neg - Trace); RBC,Urine 1 /hpf (0-3); Squamous Epithelial Cell,Urine 2 /hpf (0-5); Urobilinogen,Urine Negative mg/dL (0.0-1.0); WBC,Urine < 1 /hpf (0-5)
[2024-12-09 03:28] LABS: Amphetamine/Methamp Scrn,U Negative (Negative); Barbiturate Screen,Urine Negative (Negative); Benzodiazepines Screen,Urine Negative (Negative); Benzoylecgonine Screen, Ur Negative (Negative); Fentanyl Screen,Urine Negative (Negative); Opiate Screen,Urine Negative (Negative); THC Screen,Urine Negative (Negative)
[2024-12-09] MEDS: INSULIN HUM REGULAR 1 UNIT/0.01 ML (PER UNIT) 5 UNIT IV (03:52)
[2024-12-09 04:57] LABS: Reflex Lactate? Y
[2024-12-09 05:34] LABS: Lactic Acid, 3 HR 1.5 mMol/L (0.4-2.0)
--- NOTE | 2024-12-09 06:40 | EDNOTE_ITS ---
Emergency Room Addendum <Chula Cole - Last Filed: 12/09/24 16:51> Addendum Narrative: 0600: Care assumed from Dr. Patino, the previous shift emergency physician. Past medical, surgical, social and family history reviewed. Vitals and home medications reviewed. I will assume the care of the patient at this time. Please refer to the emergency department record for history and examination from initial visit.? 64 year old female with past medical history significant for COPD on home oxygen presents to the Emergency Department [facility] with complaint of altered mental status, per nurse EMS reported the patient to be a GCS of 12 and now the patient a GCS of 14. Patient knew her name but not oriented to place or date. Per sister, patient normally can walk with a cane. At home, last night the patient went to the restroom and she went down, unknown if she fell but no signs of trauma. Physical exam by me shows patient under no acute distress at this time. Patient arouses to verbal has some confusion and a paucity of thought when interacting she had extensive workup and a CT of head neck chest abdomen pelvis lumbar spine facial series is still pending as of 0700 hrs. Sed rate is 61 which is elevated potassium is 5.3 and last time it was 3.9 her kidney function is worse BUN is 63 and the creatinine is 2.7 in the last 1 was 1.1 lactic acid was 1.5. To summarize the patient had CTs of the head neck thorax and lumbar spine chest abdomen pelvis and there is no fracture seen there is no pathology seen on the lumbar or thoracic spines. The head CT was negative neck CT was negative. Chest abdomen pelvis has some nodules but no acute is found. Patient still has some altered mental status and acute kidney injury or worsening renal function with BUN of 63 and creatinine of 2.7 and the last creatinine was 1.1 and therefore were admitted for acute kidney injury and altered mental status. 1350: Discussed test HPI, PMHx, lab, radiology results and/or management with resident working with the hospitalist. Will admit for further evaluation and management. Accepts patient for admission. Diagnoses: -AMS -Acute kidney injury <Jonnie Abbasi MD - Last Filed: 12/09/24 20:50> Addendum Narrative: 0600: Care assumed from Dr. Patino, the previous shift emergency physician. Past medical, surgical, social and family history reviewed. Vitals and home medications reviewed. I will assume the care of the patient at this time. Please refer to the emergency department record for history and examination from initial visit.? 64 year old female with past medical history significant for COPD on home oxygen presents to the Emergency Department [facility] with complaint of altered mental status, per nurse EMS reported the patient to be a GCS of 12 and now the patient a GCS of 14. Patient knew her name but not oriented to place or date. Per sister, patient normally can walk with a cane. At home, last night the patient went to the restroom and she went down, unknown if she fell but no signs of trauma. Physical exam by me shows patient under no acute distress at this time. Patient arouses to verbal has some confusion and a paucity of thought when interacting she had extensive workup and a CT of head neck chest abdomen pelvis lumbar spine facial series is still pending as of 0700 hrs. Sed rate is 61 which is elevated potassium is 5.3 and last time it was 3.9 her kidney function is worse BUN is 63 and the creatinine is 2.7 in the last 1 was 1.1 lactic acid was 1.5. To summarize the patient had CTs of the head neck thorax and lumbar spine chest abdomen pelvis and there is no fracture seen there is no pathology seen on the lumbar or thoracic spines. The head CT was negative neck CT was negative. Chest abdomen pelvis has some nodules but no acute is found. Patient still has some altered mental status and acute kidney injury or worsening renal function with BUN of 63 and creatinine of 2.7 and the last creatinine was 1.1 and therefore were admitted for acute kidney injury and altered mental status. Results <Chula Cole - Last Filed: 12/09/24 16:51> Objective Laboratory: Laboratory Last Values WBC 9.0 Thou/mm3 (3.6-11.0) 12/09/24 01:49 RBC 5.06 Miln/mm3 (4.00-5.20) 12/09/24 01:49 Hgb 14.2 g/dL (12.0-16.0) 12/09/24 01:49 Hct 42.0 % (36.0-46.0) 12/09/24 01:49 MCV 83 fL (80-100) 12/09/24 01:49 MCH 28.1 pg (25.0-35.0) 12/09/24 01:49 MCHC 33.8 g/dl (31.0-37.0) 12/09/24 01:49 RDW Std Deviation 45.6 fL (36.4-46.3) 12/09/24 01:49 Plt Count 354 Thou/mm3 (140-440) 12/09/24 01:49 Neut % (Auto) 78 % (37-80) 12/09/24 01:49 Lymph % (Auto) 8 % (10-50) L 12/09/24 01:49 [place] % (Auto) 10 % (0-12) 12/09/24 01:49 Eos % (Auto) 3 % (0-10) 12/09/24 01:49 Baso % (Auto) 1 % (0-2.5) 12/09/24 01:49 Neut # (Auto) 7.0 Thou/mm3 (1.8-7.7) 12/09/24 01:49 Lymph # (Auto) 0.7 Thou/mm3 (1.0-4.8) L 12/09/24 01:49 [place] # (Auto) 0.9 Thou/mm3 (0.0-0.8) H 12/09/24 01:49 Eos # (Auto) 0.3 Thou/mm3 (0.0-0.5) 12/09/24 01:49 Baso # (Auto) 0.1 Thou/mm3 (0.0-0.2) 12/09/24 01:49 Immature Gran # (Auto) 0.05 Thou/mm3 (0.00-0.00) H 12/09/24 01:49 Absolute Nucleated RBC 0.00 Thou/mm3 (0.00-0.00) 12/09/24 01:49 Immature Gran % 1 % (0-0) H 12/09/24 01:49 Nucleated RBC % 0 /100 WBC (0) 12/09/24 01:49 ESR 61 mm/hr (0-30) H 12/09/24 01:49 PT 11.1 Seconds (9.0-12.2) 12/09/24 01:49 INR 1.0 (0.9-1.3) 12/09/24 01:49 APTT 21.8 Seconds (22.0-36.0) L 12/09/24 01:49 Puncture Site Left Radial 12/09/24 01:59 ABG pH 7.43 (7.35-7.45) 12/09/24 01:59 ABG pCO2 44 mmHg (32.0-48.0) 12/09/24 01:59 ABG pO2 70 mmHg (83-108) L 12/09/24 01:59 ABG HCO3 29 mEq/L (20-26) H 12/09/24 01:59 ABG O2 Saturation 95 % (91-98) 12/09/24 01:59 ABG Base Excess 4 (-3-3) H 12/09/24 01:59 Oxygen Liter Flow 2 L/min 12/09/24 01:59 FiO2 21 % 12/09/24 01:59 Sodium 135 mMol/L (136-145) L 12/09/24 01:49 Potassium 5.3 mMol/L (3.4-5.1) H 12/09/24 01:49 Chloride 94 mMol/L (98-107) L 12/09/24 01:49 Carbon Dioxide 30.8 mMol/L (20.0-31.0) 12/09/24 01:49 Anion Gap 10 (7-16) 12/09/24 01:49 BUN 63 mg/dL (9-23) H 12/09/24 01:49 Creatinine 2.7 mg/dL (0.6-1.3) H 12/09/24 01:49 Estim Creat Clear Calc 24.1 mL/min (>60) L 12/09/24 01:49 eGFR 19 See Note (60-) L 12/09/24 01:49 BUN/Creatinine Ratio 23 Ratio (12-20) H 12/09/24 01:49 Glucose 368 mg/dL (74-106) H 12/09/24 01:[address] Glu mg/dL 272 mg/dL (80-131) H 12/09/24 01:49 Hemoglobin A1c 11.1 % Hgb (4.8-6.0) H 12/09/24 01:49 Calculated Osmolality 303 (275-295) H 12/09/24 01:49 Lactic Acid 1.5 mMol/L (0.4-2.0) 12/09/24 05:30 Calcium 9.8 mg/dL (8.3-10.6) 12/09/24 01:49 Corrected Calcium 9.8 mg/dL (8.5-10.1) 12/09/24 01:49 Magnesium 2.5 mg/dL (1.6-2.6) 12/09/24 01:49 Total Bilirubin 0.4 mg/dL (0.3-1.2) 12/09/24 01:49 Direct Bilirubin 0.1 mg/dL (0.0-0.3) 12/09/24 01:49 AST 15 U/L (0-34) 12/09/24 01:49 ALT 12 U/L (10-49) 12/09/24 01:49 Alkaline Phosphatase 112 U/L (46-116) 12/09/24 01:49 Ammonia < 10 uMol/L (11-32) L 12/09/24 01:49 Total Creatine Kinase 62 U/L (34-171) 12/09/24 01:49 Troponin I 0.036 ng/mL (0.0-0.045) 12/09/24 01:49 C-Reactive Prot, Quant 1.8 mg/dL (0.0-0.9) H 12/09/24 01:49 B-Natriuretic Peptide 30 pg/mL (0-100) 12/09/24 01:49 Total Protein 7.4 gm/dL (5.7-8.2) 12/09/24 01:49 Albumin 4.8 gm/dL (3.4-4.8) 12/09/24 01:49 Globulin 2.6 gm/dL (2.3-3.5) 12/09/24 01:49 Albumin/Globulin Ratio 1.8 (1.2-2.2) 12/09/24 01:49 Beta-Hydroxybutyrate/Acetoacetate 0.1 mmol/L (<0.6) 12/09/24 01:49 Procalcitonin 0.23 ng/ml (0.0-0.49) 12/09/24 01:49 TSH 2.22 uIU/mL (0.55-4.78) 12/09/24 01:49 Free T4 1.28 ng/dL (0.89-1.76) 12/09/24 01:49 Ur Collection Type Clean Catch 12/09/24 02:25 Urine Color Colorless (Lt Yel-Yel) A 12/09/24 02:25 Urine Clarity Clear (Clear/Hazy) 12/09/24 02:25 Urine pH 6.0 (5.0-7.0) 12/09/24 02:25 Ur Specific [place] 1.010 (1.001-1.035) 12/09/24 02:25 Urine Protein Trace (Neg - Trace) 12/09/24 02:25 Urine Glucose (UA) 4+ (Negative) A 12/09/24 02:25 Urine Ketones Negative (Negative) 12/09/24 02:25 Urine Blood Negative (Negative) 12/09/24 02:25 Urine Nitrite Negative (Negative) 12/09/24 02:25 Urine Bilirubin Negative (Negative) 12/09/24 02:25 Urine Urobilinogen (Auto) Negative mg/dL (0.0-1.0) 12/09/24 02:25 Ur Leukocyte Esterase Negative (Negative) 12/09/24 02:25 Urine RBC 1 /hpf (0-3) 12/09/24 02:25 Urine WBC < 1 /hpf (0-5) 12/09/24 02:25 Ur Squamous Epith Cells 2 /hpf (0-5) 12/09/24 02:25 Urine Bacteria None (None) 12/09/24 02:25 Ur Culture Indicated? Not Indicated 12/09/24 02:25 Urine Opiates Screen Negative (Negative) 12/09/24 02:25 Urine Fentanyl Screen Negative (Negative) 12/09/24 02:25 Ur Barbiturates Screen Negative (Negative) 12/09/24 02:25 U Amphetamin/Meth Scrn Negative (Negative) 12/09/24 02:25 U Benzodiazepines Scrn Negative (Negative) 12/09/24 02:25 U Cocaine Metab Screen Negative (Negative) 12/09/24 02:25 U Marijuana (THC) Screen Negative (Negative) 12/09/24 02:25 Ethyl Alcohol < 3.0 mg/dL (0-10.0) 12/09/24 01:49 Imaging: Procedure(s): CT thoracic spine wo con Accession Number(s): [id number] cc: Abdelrahman Patino MD; Chris Ruiz MD; Wally Llamas MD~ Examination: CT thoracic spine, without contrast. 2-D sagittal reconstructions. 2-D coronal reconstructions. 3-D reconstructions. Date and time of exam:December 09, 2024 0715 hours INDICATIONS: Patient fell last night with injury to the mid back, mid back pain CTDI: vol (mGy):59 DLP: (mGycm):2013 Technique: Multiple 1.25 mm axial sections of the lumbar spine without intravenous contrast have been obtained. 2-D sagittal and coronal reconstructions have been obtained. 3-D reconstructions have been obtained. Low dose protocols were performed. One or more of the following dose reduction techniques were used; automated exposure control, adjustment of the mA and/or KV according to patient size, use of iterative reconstruction technique. Findings: Severe osteopenia Adequate alignment thoracic vertebral bodies Chronic depression deformity T9 No acute thoracic fracture No focal thoracic disc protrusion IMPRESSION: No acute thoracic fracture Dictated By: Chris Ruiz MD Procedure(s): CT lumbar spine [facility] Accession Number(s): [id number] cc: Abdelrahman Patino MD; Chris Ruiz MD; Wally Llamas MD~ Examination: CT lumbar spine, without contrast. 2-D sagittal reconstructions. 2-D coronal reconstructions. 3-D reconstructions. Date and time of exam: December 09, 2024 0715 hours INDICATIONS: Patient fell last night with injury to lower back, lower back pain CTDI: vol (mGy):23 DLP: (mGycm):2393 Technique: Multiple 1.25 mm axial sections of the lumbar spine without intravenous contrast have been obtained. 2-D sagittal and coronal reconstructions have been obtained. 3-D reconstructions have been obtained. Low dose protocols were performed. One or more of the following dose reduction techniques were used; automated exposure control, adjustment of the mA and/or KV according to patient size, use of iterative reconstruction technique. Findings: Severe osteopenia. Satisfactory alignment lumbar vertebral bodies. No lumbar vertebral body compression fracture. Lumbar pedicles and laminae appear intact L5-S1 3 mm central lumbar disc bulge L4-L5 4 mm central lumbar disc bulge IMPRESSION: No acute lumbar fracture Dictated By: Chris Ruiz MD Procedure(s): CT head/brain wo con Accession Number(s): [id number] cc: Abdelrahman Patino MD; Chris Ruiz MD; Wally Llamas MD~ Examination: CT brain head without contrast. 2-D sagittal coronal reconstructions Date and time of exam:December 09, 2024, 0711 hours Comparison September 25, 2024 INDICATIONS: Patient fell last night with injury to the head, head pain CTDI: vol (mGy):46.1 DLP: (mGycm):877 Technique: Multiple CT axial sections of the brain have been obtained, 5 mm slice thickness. Contrast has not been administered. 2-D sagittal, coronal reconstructions have been obtained Low dose protocols were performed. One or more of the following dose reduction techniques were used; automated exposure control, adjustment of the mA and/or KV according to patient size, use of iterative reconstruction technique. Findings: No significant ventricular enlargement. Intra-axial or extra-axial hemorrhage density is not seen. No mass effect or midline shift Basal cisterns are not remarkable. Fourth ventricle is midline. Cranial vault intact. Impression: Negative for acute hemorrhage, mass effect or midline shift Dictated By: Chris Ruiz MD Procedure(s): CT facial bones wo [facility] Accession Number(s): [id number] cc: Abdelrahman Patino MD; Chris Ruiz MD; Wally Llamas MD~ Examination: CT maxillofacial, without intravenous contrast. 2-D sagittal reconstructions. 3-D reconstructions. Date and time of exam:December 09, 2024, 0711 hours INDICATIONS: Patient fell last night with increase the face, facial pain CTDI: vol (mGy):27.4 DLP: (mGycm):4090 Technique: Multiple axial images of maxillofacial region, 3.0 mm slice thickness. 2-D sagittal and coronal reconstructions. 3-D reconstructions. Low dose protocols were performed. One or more of the following dose reduction techniques were used; automated exposure control, adjustment of the mA and/or KV according to patient size, use of iterative reconstruction technique. Findings: Frontal bone frontal sinuses intact No nasal bone fractures Orbital rims appear intact No depression zygomatic arches Pterygoid plates maxilla and the mandible intact The optic globes appear intact Impression: No acute facial fracture. Dictated By: Chris Ruiz MD Procedure(s): CT chest abdomen pelvis wo Accession Number(s): [id number] cc: Abdelrahman Patino MD; Chris Ruiz MD; Wally Llamas MD~ Examination: CT chest, without intravenous contrast. CT abdomen, without intravenous contrast. CT pelvis, without intravenous contrast. 2-D sagittal and coronal reconstructions. 3-D reconstructions. Date and time of exam:December 09, 2024, 0721 hours INDICATIONS: Patient fell last night with age of the chest and abdomen, chest pain abdomen pain CTDI vol (mgy) 21 DLP (MGycm)347 Technique: Multiple CT images, 3.0 mm slice thickness, obtained chest, abdomen, pelvis, with the high-resolution 64 slice scanner.. Sagittal and coronal 2-D reconstructions are obtained. 3-D reconstructions Low dose protocols were performed. One or more of the following dose reduction techniques were used; automated exposure control, adjustment of the mA and/or KV according to patient size, use of iterative reconstruction technique. Findings: Prominent calcification left anterior descending left main coronary artery No hemopericardium 17 mm nodule in the right middle lobe 12 mm nodule in the right upper lobe No pneumothorax or pulmonary contusion No hemothorax The manubrium, the body of the sternum intact and Chronic compressive deformities T9, ribs intact No acute thoracic lumbar or sacral fracture No liver or splenic or renal laceration Significant bilateral renal scar formation Abdominal aorta intact No free blood in the abdomen or pelvis Absent gallbladder Heavy abdominal aortic calcification, abdominal aorta appears intact 4 cm fat-containing above the hernia Negative for pneumoperitoneum No pericecal inflammatory change Atrophic uterus Urinary bladder intact Bones of the pelvis hips intact IMPRESSION: Thoracic aorta and pulmonary arteries intact No hemopericardium, pneumothorax, pulmonary contusion or hemothorax No abdominal parenchymal laceration Abdominal aorta intact No free body in the abdomen or pelvis Pulmonary nodules as above, recommend 3 month follow-up CT chest without contrast Dictated By: Chris Ruiz MD Procedure(s): CT cervical spine wo con Accession Number(s): [id number] cc: Abdelrahman Patino MD; Chris Ruiz MD; Wally Llamas MD~ Examination: CT cervical spine without contrast 2-D sagittal reconstructions 2-D coronal reconstructions 3-D reconstructions. Exam date and time:December 09, 2024 0711 hours INDICATIONS: Patient fell last night with injury to the neck, neck pain CTDI:vol (mGy) 17 DLP: (mGycm) 327 Technique: Multiple 2 mm axial sections of the cervical spine have been obtained. The coronal and sagittal reconstructions have been obtained. 3-D reconstructions have been obtained. Low dose protocols were performed. One or more of the following dose reduction techniques were used; automated exposure control, adjustment of the mA and/or KV according to patient size, use of iterative reconstruction technique. Findings: Axial sections demonstrate intact base of the skull. C1 exhibit satisfactory relationship to the odontoid. No acute cervical vertebral body fracture seen. Alignment posterior spinous processes satisfactory. Impression: No acute cervical fracture. Dictated By: Chris Ruiz MD <Jonnie Abbasi MD - Last Filed: 12/09/24 20:50> Objective Laboratory: Laboratory Last Values WBC 9.0 Thou/mm3 (3.6-11.0) 12/09/24 01:49 RBC 5.06 Miln/mm3 (4.00-5.20) 12/09/24 01:49 Hgb 14.2 g/dL (12.0-16.0) 12/09/24 01:49 Hct 42.0 % (36.0-46.0) 12/09/24 01:49 MCV 83 fL (80-100) 12/09/24 01:49 MCH 28.1 pg (25.0-35.0) 12/09/24 01:49 MCHC 33.8 g/dl (31.0-37.0) 12/09/24 01:49 RDW Std Deviation 45.6 fL (36.4-46.3) 12/09/24 01:49 Plt Count 354 Thou/mm3 (140-440) 12/09/24 01:49 Neut % (Auto) 78 % (37-80) 12/09/24 01:49 Lymph % (Auto) 8 % (10-50) L 12/09/24 01:49 [place] % (Auto) 10 % (0-12) 12/09/24 01:49 Eos % (Auto) 3 % (0-10) 12/09/24 01:49 Baso % (Auto) 1 % (0-2.5) 12/09/24 01:49 Neut # (Auto) 7.0 Thou/mm3 (1.8-7.7) 12/09/24 01:49 Lymph # (Auto) 0.7 Thou/mm3 (1.0-4.8) L 12/09/24 01:49 [place] # (Auto) 0.9 Thou/mm3 (0.0-0.8) H 12/09/24 01:49 Eos # (Auto) 0.3 Thou/mm3 (0.0-0.5) 12/09/24 01:49 Baso # (Auto) 0.1 Thou/mm3 (0.0-0.2) 12/09/24 01:49 Immature Gran # (Auto) 0.05 Thou/mm3 (0.00-0.00) H 12/09/24 01:49 Absolute Nucleated RBC 0.00 Thou/mm3 (0.00-0.00) 12/09/24 01:49 Immature Gran % 1 % (0-0) H 12/09/24 01:49 Nucleated RBC % 0 /100 WBC (0) 12/09/24 01:49 ESR 61 mm/hr (0-30) H 12/09/24 01:49 PT 11.1 Seconds (9.0-12.2) 12/09/24 01:49 INR 1.0 (0.9-1.3) 12/09/24 01:49 APTT 21.8 Seconds (22.0-36.0) L 12/09/24 01:49 Puncture Site Left Radial 12/09/24 01:59 ABG pH 7.43 (7.35-7.45) 12/09/24 01:59 ABG pCO2 44 mmHg (32.0-48.0) 12/09/24 01:59 ABG pO2 70 mmHg (83-108) L 12/09/24 01:59 ABG HCO3 29 mEq/L (20-26) H 12/09/24 01:59 ABG O2 Saturation 95 % (91-98) 12/09/24 01:59 ABG Base Excess 4 (-3-3) H 12/09/24 01:59 Oxygen Liter Flow 2 L/min 12/09/24 01:59 FiO2 21 % 12/09/24 01:59 Sodium 135 mMol/L (136-145) L 12/09/24 01:49 Potassium 5.3 mMol/L (3.4-5.1) H 12/09/24 01:49 Chloride 94 mMol/L (98-107) L 12/09/24 01:49 Carbon Dioxide 30.8 mMol/L (20.0-31.0) 12/09/24 01:49 Anion Gap 10 (7-16) 12/09/24 01:49 BUN 63 mg/dL (9-23) H 12/09/24 01:49 Creatinine 2.7 mg/dL (0.6-1.3) H 12/09/24 01:49 Estim Creat Clear Calc 24.1 mL/min (>60) L 12/09/24 01:49 eGFR 19 See Note (60-) L 12/09/24 01:49 BUN/Creatinine Ratio 23 Ratio (12-20) H 12/09/24 01:49 Glucose 368 mg/dL (74-106) H 12/09/24 01:[address] Glu mg/dL 272 mg/dL (80-131) H 12/09/24 01:49 Hemoglobin A1c 11.1 % Hgb (4.8-6.0) H 12/09/24 01:49 Calculated Osmolality 303 (275-295) H 12/09/24 01:49 Lactic Acid 1.5 mMol/L (0.4-2.0) 12/09/24 05:30 Calcium 9.8 mg/dL (8.3-10.6) 12/09/24 01:49 Corrected Calcium 9.8 mg/dL (8.5-10.1) 12/09/24 01:49 Magnesium 2.5 mg/dL (1.6-2.6) 12/09/24 01:49 Total Bilirubin 0.4 mg/dL (0.3-1.2) 12/09/24 01:49 Direct Bilirubin 0.1 mg/dL (0.0-0.3) 12/09/24 01:49 AST 15 U/L (0-34) 12/09/24 01:49 ALT 12 U/L (10-49) 12/09/24 01:49 Alkaline Phosphatase 112 U/L (46-116) 12/09/24 01:49 Ammonia < 10 uMol/L (11-32) L 12/09/24 01:49 Total Creatine Kinase 62 U/L (34-171) 12/09/24 01:49 Troponin I 0.036 ng/mL (0.0-0.045) 12/09/24 01:49 C-Reactive Prot, Quant 1.8 mg/dL (0.0-0.9) H 12/09/24 01:49 B-Natriuretic Peptide 30 pg/mL (0-100) 12/09/24 01:49 Total Protein 7.4 gm/dL (5.7-8.2) 12/09/24 01:49 Albumin 4.8 gm/dL (3.4-4.8) 12/09/24 01:49 Globulin 2.6 gm/dL (2.3-3.5) 12/09/24 01:49 Albumin/Globulin Ratio 1.8 (1.2-2.2) 12/09/24 01:49 Beta-Hydroxybutyrate/Acetoacetate 0.1 mmol/L (<0.6) 12/09/24 01:49 Procalcitonin 0.23 ng/ml (0.0-0.49) 12/09/24 01:49 TSH 2.22 uIU/mL (0.55-4.78) 12/09/24 01:49 Free T4 1.28 ng/dL (0.89-1.76) 12/09/24 01:49 Ur Collection Type Clean Catch 12/09/24 02:25 Urine Color Colorless (Lt Yel-Yel) A 12/09/24 02:25 Urine Clarity Clear (Clear/Hazy) 12/09/24 02:25 Urine pH 6.0 (5.0-7.0) 12/09/24 02:25 Ur Specific [place] 1.010 (1.001-1.035) 12/09/24 02:25 Urine Protein Trace (Neg - Trace) 12/09/24 02:25 Urine Glucose (UA) 4+ (Negative) A 12/09/24 02:25 Urine Ketones Negative (Negative) 12/09/24 02:25 Urine Blood Negative (Negative) 12/09/24 02:25 Urine Nitrite Negative (Negative) 12/09/24 02:25 Urine Bilirubin Negative (Negative) 12/09/24 02:25 Urine Urobilinogen (Auto) Negative mg/dL (0.0-1.0) 12/09/24 02:25 Ur Leukocyte Esterase Negative (Negative) 12/09/24 02:25 Urine RBC 1 /hpf (0-3) 12/09/24 02:25 Urine WBC < 1 /hpf (0-5) 12/09/24 02:25 Ur Squamous Epith Cells 2 /hpf (0-5) 12/09/24 02:25 Urine Bacteria None (None) 12/09/24 02:25 Ur Culture Indicated? Not Indicated 12/09/24 02:25 Urine Opiates Screen Negative (Negative) 12/09/24 02:25 Urine Fentanyl Screen Negative (Negative) 12/09/24 02:25 Ur Barbiturates Screen Negative (Negative) 12/09/24 02:25 U Amphetamin/Meth Scrn Negative (Negative) 12/09/24 02:25 U Benzodiazepines Scrn Negative (Negative) 12/09/24 02:25 U Cocaine Metab Screen Negative (Negative) 12/09/24 02:25 U Marijuana (THC) Screen Negative (Negative) 12/09/24 02:25 Ethyl Alcohol < 3.0 mg/dL (0-10.0) 12/09/24 01:49
[2024-12-09] MEDS: SODIUM CHLORIDE 0.9% 1000 ML 1,000 ML 75 ML IV (14:46)
[2024-12-09] MEDS: SODIUM CHLORIDE 0.9% 1000 ML 1,000 ML 100 ML IV (15:10)
--- NOTE | 2024-12-09 15:20 | ESHP_ITS ---
<Statement entered by Ileana Dao MD - 12/23/24 14:03> I reviewed above note and agree with findings and plans. I have also personally examined the patient with medicine team and went over assessment and plan with medical team including legal summer intern and resident physician. Documentation for date of: 12/09/24 HPI History of Present Illness History of present illness: Amrita Krishna is a 64-year-old female with a past medical history of CAD status post stents, PAD status post stents, COPD (not on home O2), insulin- dependent type 2 diabetes mellitus, CKD stage III-IV, and chronic lower extremity cellulitis who presented on 12/09 for acute encephalopathy. Patient is coming from home and lives with her sister, but is unable to provide accurate history given acute encephalopathy and history obtained over phone call with her sister, Lindsay. States that in the afternoon/evening of 12/08, patient became more sleepy than usual and appeared slightly altered per sister who wanted to take patient to the ED but patient refused. Around midnight, sister's son noticed that patient had fallen in the living room and at that time was encephalopathic as she was only saying ow and subsequently brought to the ED. There are no preceding events, though sister noted patient to be more tired than usual over the last few days. At bedside, patient herself continues to say ow as a response to multiple questions, is alert but unable to answer orientation questions. Per sister, at baseline she is A&O x 3, conversational, and has no history of dementia. At baseline, patient walks with a walker and is mostly sedentary, does not have home O2, saturates between 93 and 94% on room air, and has home health PT with [facility]. Otherwise, patient has had multiple episodes similar to this that resolved with IVF and antibiotcs per sister. PMHx: CAD status post stents, PAD status post stents, COPD (not on home O2), insulin-dependent type 2 diabetes mellitus, and chronic lower extremity cellulitis SHx: quit smoking two years ago, no illicit drug use, no significant alcohol consumption PSHx: cardiac stents and stents placed in lower extremities per sister Review of Systems Review of Systems Systems Reviewed: All systems reviewed, normal except as documented Exam Vital Signs Temp Pulse Resp BP Pulse Ox O2 Del Method O2 Flow Rate 98.0 F 84 23 H 130/58 L 99 Nasal Cannula 1 12/09/24 13:22 12/09/24 14:44 12/09/24 14:44 12/09/24 13:22 12/09/24 14:44 12/09/24 13:22 12/09/24 14:44 Narrative Exam General: alert, not oriented, replies ow to most questions, follows some commands HEENT: NC/AT, mucous membranes moist, bilateral sclera anicteric Cardiovascular: regular rate and rhythm, S1/S2 present, no murmurs appreciated Pulmonary: clear to auscultation bilaterally, no rales/rhonchi/wheezes Abdominal: soft, non-tender, non-distended, no rebound/guarding, normal bowel sounds present Musculoskeletal: normal ROM, trace lower extremity edema Skin: lower extremities warm to touch, erythematous and blanching rash that is tender to touch Neuro: CN II-XII intact, no focal deficits Results: Labs 12/09/24 01:49 12/09/24 01:49 Labs: Short CBC 12/09/24 Range/Units 01:49 WBC 9.0 (3.6-11.0) Thou/mm3 Hgb 14.2 (12.0-16.0) g/dL Hct 42.0 (36.0-46.0) % Plt Count 354 (140-440) Thou/mm3 BMP 12/09/24 01:49 Sodium 135 L Potassium 5.3 H Chloride 94 L Carbon Dioxide 30.8 BUN 63 H Creatinine 2.7 H Glucose 368 H Calcium 9.8 Cardiac Enzymes 12/09/24 Range/Units 01:49 Total Creatine Kinase 62 (34-171) U/L Troponin I 0.036 (0.0-0.045) ng/mL Liver Function 12/09/24 Range/Units 01:49 Total Bilirubin 0.4 (0.3-1.2) mg/dL Direct Bilirubin 0.1 (0.0-0.3) mg/dL AST 15 (0-34) U/L ALT 12 (10-49) U/L Alkaline Phosphatase 112 (46-116) U/L Albumin 4.8 (3.4-4.8) gm/dL Urine 12/09/24 Range/Units 02:25 Urine Color Colorless A (Lt Yel-Yel) Urine Clarity Clear (Clear/Hazy) Urine pH 6.0 (5.0-7.0) Ur Specific [place] 1.010 (1.001-1.035) Urine Protein Trace (Neg - Trace) Urine Glucose (UA) 4+ A (Negative) ABG Interpretation ABG results: 12/09/24 01:59 ABG pH 7.43 ABG pCO2 44 ABG pO2 70 L ABG HCO3 29 H ABG O2 Saturation 95 ABG Base Excess 4 H Quality Measures Quality Measures none Medications Home Medications and Allergies Home Medications ?Medication ?Instructions ?Recorded ?Confirmed ?Type simvastatin 40 mg tablet 40 mg PO HS CHOLESTEROL ##0 06/02/14 04/15/24 History sitagliptin phosphate 100 mg 100 mg PO QDAY DIABETES # 0 tabs 06/02/14 04/15/24 History tablet (Januvia) fenofibrate nanocrystallized 48 mg 48 mg PO QDAY 07/1812/09/24 History tablet ascorbic acid 7.5 mg-vit E 7.5 2 tab PO DAILY 10/10/23 04/15/24 History unit-biotin 1,250 mcg chewable tablet (Hair,Skin,Nails with Biotin) finerenone 10 mg tablet 10 mg PO QDAY 10/10/2312/09 History tiotropium 2.5 mcg-olodaterol 2.5 2 puff inhalation QD AY 10/10/23 04/15/24 History mcg/actuation mist for inhalation (Stiolto Respimat) baclofen 20 mg tablet 20 mg PO BID 11/16/23 History clopidogrel 75 mg tablet 75 mg PO QDAY 11/16/2312/09 History multivitamin-ferrous 1 tab PO QDAY 11/16/2304/15 History fumarate-folic acid 18 mg-400 mcg tablet (Centrum Women) buprenorphine 7.5 mcg/hour weekly 7.5 mcg topical QWEE K 02/21/24 04/15/24 History transdermal patch (Butrans) ascorbic acid (vitamin C) 25 mg 25 mg PO 1XD 04/15/24 04/15/24 History tablet cranberry fruit 400 mg capsule 400 mg PO DAILY 4 04/15/24 History diltiazem HCl 180 mg capsule,24 180 mg PO DAILY 04/15/24 History hr,extended release (Tiadylt ER) furosemide 40 mg tablet (Lasix) 40 mg PO QDAY 04/15/24 09/25/24 History insulin regular human 100 unit/mL See Protocol subcut 3XD 04/15/24 04/15/24 History (3 mL) subcutaneous pen (Novolin R FlexPen) magnesium hydroxide 400 mg/5 mL 30 ml PO DAILY PRN Con stipation 04/15/24 04/15/24 History oral suspension (Milk of Magnesia) mineral oil (Fleet Mineral Oil See Rx Instructions .Ro mona 04/15/24 04/15/24 History enema) .COMPLEX PRN Constipation ondansetron HCl 4 mg tablet 4 mg PO DAILY PRN nausea 1 04/15/24 History pregabalin 50 mg capsule (Lyrica) 150 mg PO TID 09/25/24 History ascorbic acid (vitamin C) 500 mg 500 mg PO BID 5 09/25/24 History capsule aspirin 81 mg chewable tablet 81 mg PO QDAY 09/25/24 0 09/25/24 History buprenorphine 15 mcg/hour weekly 15 mcg topical .WEEK 09/25/24 12/09/24 History transdermal patch diltiazem HCl 180 mg 180 mg PO QDAY 09/25/2409/04 History capsule,extended release 24 hr, controlled (DILT-XR) finerenone 10 mg tablet (Kerendia) 10 mg PO QDAY 09/2509/25/24 History fluticasone fur. 200 mcg-umeclid 1 inh inhalation QDAY 09/25/24 12/09/24 History 62.5 mcg-vilant 25 mcg inhalat.powder (Trelegy Ellipta) insulin glargine 100 unit/mL (3 50 unit subcut QAM 09/25/24 History mL) subcutaneous pen (Lantus Solostar U-100 Insulin) insulin glargine 100 unit/mL (3 75 unit subcut HS 09/0409/25/24 History mL) subcutaneous pen (Lantus Solostar U-100 Insulin) minerals 1 tab PO DAILY 09/25/2409/04 History simvastatin 10 mg tablet 10 mg PO QPM 09/25/24 History trazodone 50 mg tablet 50 mg PO HS 09/25/24 5 History zinc sulfate 50 mg zinc (220 mg) 50 mg PO QDAY 5 09/25/24 History capsule triamterene 37.5 1 cap PO QDAY 12/09/2412/09 History mg-hydrochlorothiazide 25 mg capsule Allergies Allergy/AdvReac Type Severity Reaction Status Date / Time venom-honey bee Allergy Severe Anaphylaxis Verified 02/19/24 10:57 venom-wasp Allergy Severe Anaphylaxis Verified 02/19/24 10:57 codeine AdvReac Severe PROJECTILE Verified 02/19/24 10:57 VOMITING Sulfa (Sulfonamide AdvReac Severe Nausea Verified 02/19/24 10:57 Antibiotics) Visit Medications Acetaminophen (Acetaminophen 325 Mg Tablet) 650 mg PO Q6H PRN; Protocol PRN Reason: PAIN OR FEVER > 100.4 Stop: 01/08/25 14:27 Hydrocodone Bitart/Acetaminophen (Hydrocodone/Apap 5/325 Tablet) 1 tab PO Q6HR PRN PRN Reason: PAIN SCALE 7-10 (Severe Stop: 12/14/24 15:00 Ascorbic Acid (Ascorbic Acid 250 Mg Tablet) 500 mg PO BID [facility] Stop: 01/08/25 20:59 Atorvastatin Calcium (Atorvastatin Calcium 10 Mg Tablet) 10 mg PO HS [facility] Stop: 01/09/25 20:59 Clopidogrel Bisulfate (Clopidogrel Bisulfate 75 Mg Tablet) 75 mg PO QDAY [facility] Stop: 01/09/25 08:59 Dextrose (Dextrose 50%-Water Inj 50 Ml Syringe) 25 ml IV Q15MIN PRN PRN Reason: BG 50-70 responsive npo pt Stop: 01/08/25 14:27 Dextrose (Dextrose 50%-Water Inj 50 Ml Syringe) 50 ml IV Q15MIN PRN PRN Reason: BG <50 OR BG <70 & pt unresponsive Stop: 01/08/25 14:27 Diltiazem HCl (Diltiazem Cd 180 Mg Capcr) 180 mg PO QDAY [facility] Stop: 01/09/25 08:59 Glucagon (Glucagon Inj 1 Mg Vial) 1 mg IM Q15MIN PRN PRN Reason: BG <70, and no IV access Heparin Sodium (Porcine) (Heparin Sod Inj 5000 Unit/Ml Vial) 5,000 unit SC Q8HR [facility] Stop: 12/23/24 21:59 Sodium Chloride (Ns) 1,000 mls @ 100 mls/hr IV .Q10H [facility] Stop: 01/08/25 14:58 Insulin Glargine (Insulin Glargine (Lantus) 5 Unit/0.05 Ml (Per 5 Units)) 40 unit SC QDAY [facility] Stop: 01/09/25 08:59 Insulin Glargine (Insulin Glargine (Lantus) 5 Unit/0.05 Ml (Per 5 Units)) 60 unit SC HS [facility] Stop: 01/08/25 20:59 Insulin Human Lispro (Insulin Lispro (Admelog) 1 Unit/0.01 Ml Unit) 0 unit SC Q6HR [facility]; Protocol Stop: 01/08/25 17:59 Home Medication- Please Speak With Patient Caregiver To Have Rx Brought To [facility] 48 ea PO QDAY [facility] Stop: 01/09/25 08:59 Ondansetron HCl (Ondansetron Inj 2 Mg/Ml Inj 2 Ml) 4 mg IVP Q6H PRN; Protocol PRN Reason: NAUSEA OR VOMITING Stop: 01/08/25 14:27 Pantoprazole Sodium (Pantoprazole Inj 40 Mg Vial) 40 mg IVP QDAY [facility] Stop: 01/09/25 08:59 Discontinued Medications Furosemide (Furosemide 40 Mg Tablet) 40 mg PO QDAY [facility] Stop: 01/09/25 08:59 Sodium Chloride (Ns) 1,000 mls @ 999 mls/hr IV .Q1H1M ONE Stop: 12/09/24 02:20 Last Infusion: 12/09/24 02:51 Dose: Infused Sodium Chloride (Ns) 1,000 mls @ 75 mls/hr IV .[id number] [facility] Stop: 01/08/25 14:29 Last Admin: 12/09/24 14:46 Dose: 75 mls/hr Insulin Human Regular (Insulin Hum Regular 1 Unit/0.01 Ml (Per Unit)) 10 unit IV X1 ONE Stop: 12/09/24 02:52 Last Admin: 12/09/24 03:49 Dose: Not Given Insulin Human Regular (Insulin Hum Regular 1 Unit/0.01 Ml (Per Unit)) 5 unit IV X1 ONE Stop: 12/09/24 03:50 Last Admin: 12/09/24 03:52 Dose: 5 unit Pregabalin (Pregabalin 50 Mg Capsule) 50 mg PO BID [facility] Stop: 01/09/25 08:59 Assessment & Plan Plan Amrita Krishna is a 64-year-old female with a past medical history of CAD status post stents, PAD status post stents, HFpEF (EF 50-55%, G3DD on 04/2024), COPD (not on home O2), insulin-dependent type 2 diabetes mellitus, hypertension, CKD stage III-IV, and chronic lower extremity cellulitis who is admitted for acute encephalopathy, acute on chronic kidney injury, and hyperkalemia. #Acute encephalopathy secondary to acute on chronic kidney injury versus polypharmacy versus infection Presents with 1 day of acute encephalopathy per sister. No preceding infectious symptoms, including cough, shortness of breath, fever, chills, dysuria, abdominal pain. Noted to have pregabalin and baclofen as home medications that can be contributing to her presentation. PCP has been down titrating pregabalin and currently on 50 mg twice daily. However, also noted to present with creatinine of 2.7 and BUN of 63 (baseline creatinine appears to be 1.2-1.5). Sister states that patient has had normal appetite and drinking sufficient amount of water. CT head negative for acute intracranial pathologies. ? Holding pregabalin and baclofen ? N.p.o., pending neuro swallow screen and speech evaluation ? IVF for CASEY and monitor for signs of improvement in mentation ? WBC normal and no fevers, but ESR and CRP noted to be elevated, consider cellulitis and antibiotic if no improvement in mentation #Acute on chronic kidney injury #CKD stage III-IV, likely secondary to diabetes Per sister, patient has had normal p.o. intake and adequate fluid consumption. Baseline creatinine noted be around 1.2-1.5 but also has longstanding, uncontrolled diabetes. ? NS at 100 cc/h ? Follow-up renal ultrasound ? Avoid nephrotoxic agents when possible, renally dose medications ? Finerenone 10 mg p.o. daily #Type 2 diabetes mellitus, insulin-dependent A1c 11.1% on 12/09/2024 ? 40 mg glargine in a.m., 60 mg glargine at bedtime ? SSI ? Hypoglycemic protocol in place #CAD status post stents #PAD status post stents ? Clopidogrel 75 mg p.o. daily ? Atorvastatin 10 mg p.o. at bedtime ? Fenofibrate 48 mg daily #HFpEF (EF 50 to 55%, G3 DD on 04/2024) Not in acute exacerbation. ? Will hold on home Lasix as patient currently receiving IVF ? Daily weights #COPD, not on home O2 Quit smoking two years ago, not on home oxygen. ? Trelegy inhaler daily ? DuoNebs as needed #Hypertension ? Diltiazem 180 mg daily ? Triamterene-HCTZ 37.5-25 mg capsule daily Hospital management: Disposition: Acute encephalopathy, monitoring improvement in mental status Fluids: NS at 100 cc/h Diet: N.p.o., pending speech evaluation Lines: PIV DVT prophylaxis: Heparin SC every 8 hours GI prophylaxis: Pantoprazole 40 mg IV daily CODE STATUS: full code ----- Plan discussed with attending physician Dr. Sylwia Fritz MD PGY-1 Internal Medicine
--- NOTE | 2024-12-09 15:46 | XR_ITS ---
Examination: Retroperitoneal ultrasound, complete Technique: Multiple high resolution grayscale images of the retroperitoneum obtained, including kidneys and bladder. Exam date and time:December 09, 2024 1708 hours INDICATIONS: Diagnosis chronic kidney disease FINDINGS: Right kidney 12.7 cm cortex 1.6 cm 8 mm lower pole calculus Left kidney 10.6 cm renal cortex 1.3 cm Moderate bilateral renal parenchymal scar formation No bladder mass or bladder calculi Bladder prevoid volume 445 cc, unable to void IMPRESSION: Bilateral renal cortical thinning 8 mm nonobstructing right renal calculus Moderate bilateral renal parenchymal scar formation
[2024-12-09 16:55] LABS: Albumin, Serum 4.7 gm/dL (3.4-4.8); Anion Gap 14 (7-16); BUN/Creatinine Ratio 23 Ratio (12-20); Blood Urea Nitrogen 49 mg/dL (9-23); Calcium 9.7 mg/dL (8.3-10.6); Calcium (Corrected) 9.7 mg/dL (8.5-10.1); Carbon Dioxide 29.8 mMol/L (20.0-31.0); Chloride 98 mMol/L (98-107); Creatinine (Component) 2.1 mg/dL (0.6-1.3); Glucose 154 mg/dL (74-106); Osmolality,Calculated 299 (275-295); Phosphorous 3.7 mg/dL (2.4-5.1); Potassium 4.2 mMol/L (3.4-5.1); Sodium 142 mMol/L (136-145); eGFR 26 See Note
[2024-12-09] MEDS: ASCORBIC ACID 250 MG TABLET 500 MG PO (22:03)
[2024-12-09] MEDS: HEPARIN SOD INJ 5000 UNIT/ML VIAL SC (22:06)
[2024-12-09] MEDS: INSULIN GLARGINE (Lantus) 5 UNIT/0.05 ML (PER 5 UNITS) 60 UNIT SC (22:21)
[2024-12-10] VITALS (15 sets, daily range): BP systolic 119–172; BP diastolic 50–74; PULSE 68–94; RESP 15–19; TEMP 36.2–36.9; O2SAT 95–97; BMI 32.5
[2024-12-10] MEDS: SODIUM CHLORIDE 0.9% 1000 ML 1,000 ML 100 ML IV (00:25)
--- NOTE | 2024-12-10 00:40 | PC.NURSE ---
home med rec done from [facility] med lists, but a few meds needs clarification with daughter- Relayed to receiving rn
--- NOTE | 2024-12-10 00:40 | PC.NURSE ---
Assuming care of patient at this time. Received report from Rachel KIM. Agree with previous assessment except pt is GCS 14, disoriented to time; pt on 1L/NC, bed alarm on for safety, pt denies pain and nausea at this time, baez catheter present and patent. Will continue to monitor.
[2024-12-10] MEDS: HEPARIN SOD INJ 5000 UNIT/ML VIAL SC ×3 (05:27→22:35)
[2024-12-10 05:54] LABS: Basophils # (Auto) 0.1 Thou/mm3 (0.0-0.2); Basophils % (Auto) 1 % (0-2.5); Eosinophils # (Auto) 0.3 Thou/mm3 (0.0-0.5); Eosinophils % (Auto) 6 % (0-10); Hematocrit 38.2 % (36.0-46.0); Hemoglobin 12.8 g/dL (12.0-16.0); Immature Granulocytes % (Auto) 0 % (0-0); Immature Granulocytes Auto 0.02 Thou/mm3 (0.00-0.00); Lymphocytes % (Auto) 18 % (10-50); Mean Corpuscular HGB Conc 33.5 g/dl (31.0-37.0); Mean Corpuscular Hemoglobin 28.6 pg (25.0-35.0); Mean Corpuscular Volume 85 fL (80-100); Monocytes % (Auto) 18 % (0-12); Neutrophils # (Auto) 3.3 Thou/mm3 (1.8-7.7); Neutrophils % (Auto) 57 % (37-80); Nucleated Red Blood Cell % 0 /100 WBC (0); Platelet Count 326 Thou/mm3 (140-440); RDW Standard Deviation 47.6 fL (36.4-46.3); Red Blood Count 4.48 Miln/mm3 (4.00-5.20); White Blood Count 5.7 Thou/mm3 (3.6-11.0)
[2024-12-10 06:34] LABS: Anion Gap 12 (7-16); BUN/Creatinine Ratio 27 Ratio (12-20); Blood Urea Nitrogen 48 mg/dL (9-23); Calcium 9.4 mg/dL (8.3-10.6); Carbon Dioxide 26.9 mMol/L (20.0-31.0); Chloride 96 mMol/L (98-107); Creatinine (Component) 1.8 mg/dL (0.6-1.3); Estimated Creatinine Clearance 35.6 mL/min (>60); Glucose 110 mg/dL (74-106); Magnesium 2.4 mg/dL (1.6-2.6); Osmolality,Calculated 283 (275-295); Phosphorous 3.5 mg/dL (2.4-5.1); Potassium 3.8 mMol/L (3.4-5.1); Sodium 135 mMol/L (136-145); eGFR 31 See Note
[2024-12-10 06:46] LABS: Cardiac Risk Estimate 5.2 RATIO (3.7-5.6); Cholesterol 173 mg/dL (132-200); HDL Cholesterol 33 mg/dL (40-60); LDL Cholesterol,Calculated 75 mg/dL (0-130); Triglycerides 326 mg/dL (30-150)
[2024-12-10] MEDS: HYDROcodone/APAP 5/325 TABLET 1 TAB PO ×2 (08:14→20:51)
[2024-12-10] MEDS: DILTIAZEM CD 180 MG CAPCR PO (08:14)
[2024-12-10] MEDS: ASCORBIC ACID 250 MG TABLET 500 MG PO ×2 (08:14→20:51)
[2024-12-10] MEDS: CLOPIDOGREL BISULFATE 75 MG TABLET PO (08:15)
[2024-12-10] MEDS: PANTOPRAZOLE INJ 40 MG VIAL IVP (08:15)
[2024-12-10] MEDS: INSULIN GLARGINE (Lantus) 5 UNIT/0.05 ML (PER 5 UNITS) 40 UNIT SC (08:24)
[2024-12-10] MEDS: METOPROLOL SUCCINATE XL 25 MG TABCR PO (10:30)
[2024-12-10] MEDS: INSULIN LISPRO (AdmeLOG) 1 UNIT/0.01 ML UNIT SC (11:59)
--- NOTE | 2024-12-10 13:10 | ESPR_ITS ---
<Statement entered by Keke Marley MD - 12/10/24 13:33> I Keke Marley MD reviewed the note and agree with the resident's assessment & plan with exceptions as below. I have personally reviewed labs, imaging, home meds/prior records, examined the patient, formulated and discussed management plan with the IM team. A 64-year-old F with history of multiple comorbidities presented with altered mental status and admitted for acute encephalopathy likely related to polypharmacy. Patient's mentation has been significantly improved. CASEY is improved after IVF visitation. Hold on diuretics or IVF at this point as patient is clinically euvolemic. Continue Plavix monotherapy and high intensity statin therapy (Hx of PCI and peripheral intervention years ago). Hold on all sedatives, start on metoprolol succinate 25 mg daily. Will add on GDMT once renal function improves. Will provide supportive care for remaining comorbidities. Documentation for date of: 12/10/24 Subjective Subjective Interval history: Patient was examined bedside this morning, her mentation was improved. No acute overnight event. She has diastolic heart failure. Started the patient on metoprolol succinate 25 Mg daily. Exam Vital Signs Temp Pulse Resp BP Pulse Ox O2 Del Method O2 Flow Rate 98.1 F 94 18 155/61 H 96 Nasal Cannula 1 12/10/24 08:00 12/10/24 10:30 12/10/24 08:25 12/10/24 10:30 12/10/24 08:25 12/10/24 08:00 12/10/24 08:25 Narrative Exam GENERAL: Comfortable adult seen resting comfortably in hospital bed, no acute distress, obese. HEENT: Normocephalic, atraumatic. Pupils are equal and reactive. Oral mucosa is moist. NECK: Supple, nontender, no JVD CHEST: Symmetrical, atraumatic and with equal expansion ,Nontender on palpation CARDIOVASCULAR: Heart regular rhythm & rate. S1/S2. no murmur or gallop rub or extra beats. LUNGS: Clear to auscultation bilaterally with symmetrical chest rise. No laboring tachypnea or wheezing. No intercostal subcostal retraction. No rales and no rhonchi. ABDOMEN: Soft, flat, nontender to palpation, no guarding or rebound tenderness. Active and normal bowel sounds. EXTREMITIES:Moves all 4 extremities, trace LE edema.warm to touch, b/l lower leg has erythematous and blanching rash that is tender to touch NEURO: Patient is AO x 3, Cranial nerves II through XII grossly intact. There is no focal neurologic deficits noted. PSYCHIATRIC: Patient is in normal mood, cooperative, no SI or HI or hallucinations. Objective Labs 12/10/24 04:35 12/10/24 04:35 Labs: Laboratory Results - last 24 hr 12/09/24 12/10/24 16:18 04:35 WBC 5.7 RBC 4.48 Hgb 12.8 Hct 38.2 MCV 85 MCH 28.6 MCHC 33.5 RDW Std Deviation 47.6 H Plt Count 326 Neut % (Auto) 57 Lymph % (Auto) 18 [place] % (Auto) 18 H Eos % (Auto) 6 Baso % (Auto) 1 Neut # (Auto) 3.3 Lymph # (Auto) 1.0 [place] # (Auto) 1.0 H Eos # (Auto) 0.3 Baso # (Auto) 0.1 Immature Gran # (Auto) 0.02 H Absolute Nucleated RBC 0.00 Immature Gran % 0 Nucleated RBC % 0 Sodium 142 135 L Potassium 4.2 D 3.8 Chloride 98 96 L Carbon Dioxide 29.8 26.9 Anion Gap 14 12 BUN 49 H 48 H Creatinine 2.1 H D 1.8 H Estim Creat Clear Calc 31.0 L 35.6 L eGFR 26 L 31 L BUN/Creatinine Ratio 23 H 27 H Glucose 154 H D 110 H Calculated Osmolality 299 H 283 Calcium 9.7 9.4 Corrected Calcium 9.7 Phosphorus 3.7 3.5 Magnesium 2.4 Albumin 4.7 Triglycerides 326 H Cholesterol 173 LDL Cholesterol, Calc 75 HDL Cholesterol 33 L Cholesterol/HDL Ratio 5.2 ABG Interpretation ABG results: 12/09/24 01:59 ABG pH 7.43 ABG pCO2 44 ABG pO2 70 L ABG HCO3 29 H ABG O2 Saturation 95 ABG Base Excess 4 H Quality Measures Quality Measures none Assessment & Plan Assessment Current Active Medications: Generic Name Dose Route Start Last Admin Trade Name Freq PRN Reason Stop Dose Admin Acetaminophen 650 mg 12/09/24 14:28 Acetaminophen 325 Mg Tablet PO 01/08/25 14:27 Q6H PRN PAIN OR FEVER > 100.4 Protocol Hydrocodone Bitart/Acetaminophen 1 tab 12/09/24 15:01 12/10/24 08:14 Hydrocodone/Apap 5/325 Tablet PO 12/14/24 15:00 1 tab Q6HR PRN Administration PAIN SCALE 7-10 (Severe Albuterol/Ipratropium 3 ml 12/09/24 15:52 Albuterol/Ipratropium (Duoneb) Rt Joy 3 Ml Nebu INH 01/08/25 15:51 Q2HR PRN SHORTNESS OF BREATH OR WHEEZE Ascorbic Acid 500 mg 12/09/24 21:00 12/10/24 08:14 Ascorbic Acid 250 Mg Tablet PO 01/08/25 20:59 500 mg BID EMY Administration Atorvastatin Calcium 40 mg 12/10/24 21:00 Atorvastatin Calcium 20 Mg Tablet PO 01/09/25 20:59 HS EMY Clopidogrel Bisulfate 75 mg 12/10/24 09:00 12/10/24 08:15 Clopidogrel Bisulfate 75 Mg Tablet PO 01/09/25 08:59 75 mg QDAY EMY Administration Dextrose 25 ml 12/09/24 14:28 Dextrose 50%-Water Inj 50 Ml Syringe IV 01/08/25 14:27 Q15MIN PRN BG 50-70 responsive npo pt Dextrose 50 ml 12/09/24 14:28 Dextrose 50%-Water Inj 50 Ml Syringe IV 01/08/25 14:27 Q15MIN PRN BG <50 OR BG <70 & pt unresponsive Diltiazem HCl 180 mg 12/10/24 09:00 12/10/24 08:14 Diltiazem Cd 180 Mg Capcr PO 01/09/25 08:59 180 mg QDAY EMY Administration Glucagon 1 mg 12/09/24 14:28 Glucagon Inj 1 Mg Vial IM Q15MIN PRN BG <70, and no IV access Heparin Sodium (Porcine) 5,000 unit 12/09/24 22:00 12/10/24 05:27 Heparin Sod Inj 5000 Unit/Ml Vial SC 12/23/24 21:59 5,000 unit Q8HR EMY Administration Insulin Glargine 40 unit 12/10/24 09:00 12/10/24 08:24 Insulin Glargine (Lantus) 5 Unit/0.05 Ml (Per 5 Units) SC 01/09/25 08:59 40 unit QDAY EMY Administration Insulin Glargine 60 unit 12/09/24 21:00 12/09/24 22:21 Insulin Glargine (Lantus) 5 Unit/0.05 Ml (Per 5 Units) SC 01/08/25 20:59 60 unit HS EMY Administration Insulin Human Lispro 0 unit 12/09/24 18:00 12/10/24 11:59 Insulin Lispro (Admelog) 1 Unit/0.01 Ml Unit SC 01/08/25 17:59 3 unit Q6HR EMY Administration Protocol Metoprolol Succinate 25 mg 12/10/24 09:45 12/10/24 10:30 Metoprolol Succinate Xl 25 Mg Tabcr PO 01/09/25 09:44 25 mg QDAY EMY Administration Home Medication- 48 ea 12/10/24 09:00 12/10/24 08:30 Please Speak With PO 01/09/25 08:59 Not Given Patient Caregiver To QDAY EMY Have Rx Brought To [facility] Non-Formulary Medication 10 mg 12/10/24 09:00 12/10/24 08:30 Finerenone PO 01/09/25 08:59 Not Given QDAY [facility] Non-Formulary Medication 1 inh 12/10/24 09:00 12/10/24 11:08 Ygujrpgkldt-Fvbwrtjes-Smuwomtv [Trelegy Ellipta] IH 01/09/25 08:59 Not Given QDAY [facility] Non-Formulary Medication 1 cap 12/10/24 09:00 12/10/24 08:31 Triamterene-Hydrochlorothiazid PO 01/09/25 08:59 Not Given QDAY [facility] Protocol Ondansetron HCl 4 mg 12/09/24 14:28 Ondansetron Inj 2 Mg/Ml Inj 2 Ml IVP 01/08/25 14:27 Q6H PRN NAUSEA OR VOMITING Protocol Pantoprazole Sodium 40 mg 12/10/24 09:00 12/10/24 08:15 Pantoprazole Inj 40 Mg Vial IVP 01/09/25 08:59 40 mg QDAY [facility] Administration Plan Amrita Krishna is a 64-year-old female with a past medical history of CAD status post stents, PAD status post stents, HFpEF (EF 50-55%, G3DD on 04/2024), COPD (not on home O2), insulin-dependent type 2 diabetes mellitus, hypertension, CKD stage III-IV, and chronic lower extremity cellulitis who is admitted for acute encephalopathy, acute on chronic kidney injury, and hyperkalemia. #Acute encephalopathy secondary to acute on chronic kidney injury versus polypharmacy versus infection- improved Presents with 1 day of acute encephalopathy per sister. No preceding infectious symptoms, including cough, shortness of breath, fever, chills, dysuria, abdominal pain. Noted to have pregabalin and baclofen as home medications that can be contributing to her presentation. PCP has been down titrating pregabalin and currently on 50 mg twice daily. However, also noted to present with creatinine of 2.7 and BUN of 63 (baseline creatinine appears to be 1.2-1.5). Sister states that patient has had normal appetite and drinking sufficient amount of water. CT head negative for acute intracranial pathologies. ? Holding pregabalin and baclofen ? N.p.o., pending neuro swallow screen and speech evaluation ? IVF for CASEY and monitor for signs of improvement in mentation ? WBC normal and no fevers, but ESR and CRP noted to be elevated, consider cellulitis and antibiotic if no improvement in mentation -12/10/2024: Her mentation has improved significantly. Acute encephalopathy was most likely secondary to polypharmacy. #Acute on chronic kidney injury- improving #CKD stage III-IV, likely secondary to diabetes Per sister, patient has had normal p.o. intake and adequate fluid consumption. Baseline creatinine noted be around 1.2-1.5 but also has longstanding, uncontrolled diabetes. ? NS at 100 cc/h ? Follow-up renal ultrasound ? Avoid nephrotoxic agents when possible, renally dose medications ? Finerenone 10 mg p.o. daily - 12/10/2024-her kidney function significantly improved to 1.8 from 2.7. Will discontinue the fluid encourage her for oral intake. Will hold off on her Lasix for now. #HFpEF (EF 50 to 55%, G3 DD on 04/2024) Not in acute exacerbation. ? Will hold on home Lasix -Started the patient on metoprolol succinate 25 Mg daily. ? Daily weights #Type 2 diabetes mellitus, insulin-dependent A1c 11.1% on 12/09/2024 ? 40 mg glargine in a.m., 60 mg glargine at bedtime ? SSI ? Hypoglycemic protocol in place #CAD status post stents #PAD status post stents ? Clopidogrel 75 mg p.o. daily ? Atorvastatin 10 mg p.o. at bedtime ? Fenofibrate 48 mg daily #COPD, not on home O2 Quit smoking two years ago, not on home oxygen. ? Trelegy inhaler daily ? DuoNebs as needed #Hypertension ? Diltiazem 180 mg daily ? Triamterene-HCTZ 37.5-25 mg capsule daily Hospital management: Disposition: Acute encephalopathy, monitoring improvement in mental status Fluids: NS at 100 cc/h Diet: Cardiac Lines: PIV DVT prophylaxis: Heparin SC every 8 hours GI prophylaxis: Pantoprazole 40 mg IV daily CODE STATUS: full code Plan discussed with attending physician Dr. Donell Barnes MD, PGY- 3
--- NOTE | 2024-12-10 19:52 | PC.NURSE ---
re own home meds and verification of some home meds- called sister Lindsay Dahl tel#[phone]- no answer, left message to call back rn.
[2024-12-10] MEDS: ATORVASTATIN CALCIUM 20 MG TABLET 40 MG PO (20:51)
[2024-12-10] MEDS: INSULIN GLARGINE (Lantus) 5 UNIT/0.05 ML (PER 5 UNITS) 60 UNIT SC (21:04)
[2024-12-11] VITALS (14 sets, daily range): BP systolic 125–172; BP diastolic 62–94; PULSE 67–90; RESP 16–20; TEMP 36.1–37.2; O2SAT 93–98; BMI 32.4
[2024-12-11] MEDS: HEPARIN SOD INJ 5000 UNIT/ML VIAL SC ×3 (05:56→21:36)
[2024-12-11 05:59] LABS: Basophils % (Auto) 1 % (0-2.5); Eosinophils # (Auto) 0.2 Thou/mm3 (0.0-0.5); Eosinophils % (Auto) 4 % (0-10); Hematocrit 39.5 % (36.0-46.0); Immature Granulocytes % (Auto) 0 % (0-0); Immature Granulocytes Auto 0.02 Thou/mm3 (0.00-0.00); Lymphocytes # (Auto) 0.6 Thou/mm3 (1.0-4.8); Lymphocytes % (Auto) 11 % (10-50); Mean Corpuscular HGB Conc 32.9 g/dl (31.0-37.0); Mean Corpuscular Volume 85 fL (80-100); Monocytes # (Auto) 0.7 Thou/mm3 (0.0-0.8); Monocytes % (Auto) 13 % (0-12); Neutrophils # (Auto) 3.9 Thou/mm3 (1.8-7.7); Neutrophils % (Auto) 71 % (37-80); Nucleated Red Blood Cell % 0 /100 WBC (0); Platelet Count 290 Thou/mm3 (140-440); Red Blood Count 4.64 Miln/mm3 (4.00-5.20); White Blood Count 5.5 Thou/mm3 (3.6-11.0)
[2024-12-11 07:33] LABS: Anion Gap 11 (7-16); BUN/Creatinine Ratio 23 Ratio (12-20); Blood Urea Nitrogen 32 mg/dL (9-23); Calcium 9.3 mg/dL (8.3-10.6); Carbon Dioxide 27.7 mMol/L (20.0-31.0); Chloride 100 mMol/L (98-107); Creatinine (Component) 1.4 mg/dL (0.6-1.3); Estimated Creatinine Clearance 44.8 mL/min (>60); Glucose 130 mg/dL (74-106); Magnesium 2.3 mg/dL (1.6-2.6); Osmolality,Calculated 286 (275-295); Phosphorous 2.9 mg/dL (2.4-5.1); Potassium 3.9 mMol/L (3.4-5.1); Sodium 139 mMol/L (136-145); eGFR 43 See Note
[2024-12-11] MEDS: METOPROLOL SUCCINATE XL 25 MG TABCR PO (09:30)
[2024-12-11] MEDS: DILTIAZEM CD 180 MG CAPCR PO (09:30)
[2024-12-11] MEDS: CLOPIDOGREL BISULFATE 75 MG TABLET PO (09:30)
[2024-12-11] MEDS: ASCORBIC ACID 250 MG TABLET 500 MG PO (09:30)
[2024-12-11] MEDS: PANTOPRAZOLE INJ 40 MG VIAL IVP (09:31)
[2024-12-11] MEDS: INSULIN GLARGINE (Lantus) 5 UNIT/0.05 ML (PER 5 UNITS) 40 UNIT SC (09:31)
[2024-12-11] MEDS: HYDROcodone/APAP 5/325 TABLET 1 TAB PO ×2 (09:33→17:20)
--- NOTE | 2024-12-11 09:38 | PC.SS ---
Patient Amrita Krishna is a 64 Year old female admitted for Acutencephalopathy. SS made contact with patient at bedside? to complete initial and discuss discharge disposition. Role and reason for the contact was explained to Patient. Demographic information was verified.?Patient reports she lives at home with her sister. Pt? identified her Sister, Lindsay Dahl as her surrogate decision maker [phone]. She is independent with all ADLs. Patient does utilize a Rollator walker to assist with ambulation. Patient?s choice of pharmacy is [facility]. At time of discharge patient will return home, family will provide transportation. Discharge plan: Home Next of Kin: Sister, Lindsay Dahl [phone]
--- NOTE | 2024-12-11 10:52 | PC.SS ---
SS follow up note; Patient will discharge home today.
[2024-12-11] MEDS: INSULIN LISPRO (AdmeLOG) 1 UNIT/0.01 ML UNIT SC (11:41)
--- NOTE | 2024-12-11 12:03 | ESPR_ITS ---
<Statement entered by Ileana Dao MD - 12/23/24 14:04> I reviewed above note and agree with findings and plans. I have also personally examined the patient with medicine team and went over assessment and plan with medical team including manager intern and resident physician. Documentation for date of: 12/11/24 Subjective Subjective Interval history: The patient was seen and examined at the bedside with no acute events reported overnight. Upon evaluation today, the patient was alert and oriented to person, place, and time. The patient's daughter was at the bedside, and we reviewed the patient's medication list. We discussed the possibility of encephalopathy, likely related to polypharmacy, given the number of medications the patient is currently taking at home. Detailed instructions regarding medications upon discharge were provided to both the patient and the daughter. Physical therapy was involved in the patient's care; however, the patient demonstrated weakness and insufficient strength for discharge home at this time. The patient's daughter confirmed that home health services are in place, but they are only available for a few hours daily. She is employed and unable to provide 24/7 care. After discussing all concerns, the patient and daughter are in agreement with a plan for short-term rehabilitation to improve strength. We will arrange for an official physical therapy evaluation and anticipate discharge to a SNF for short-term rehabilitation. Exam Vital Signs Temp Pulse Resp BP Pulse Ox O2 Del Method O2 Flow Rate 97.0 F 74 18 167/72 H 95 Nasal Cannula 1 12/11/24 08:00 12/11/24 09:50 12/11/24 08:00 12/11/24 09:30 12/11/24 08:00 12/11/24 08:00 12/11/24 04:42 Narrative Exam GENERAL: no acute distress, AAO x3, well nourished. HEENT: Head AT/ NC. Mucous membranes moist. PERRL. NECK: Supple, no lymphadenopathy, no carotid bruits. CARDIOVASCULAR: RRR. Normal S1/S2, No m/r/g. RESPIRATORY: CTAB. No wheezing, rhonchi, crackles. GASTROINTESTINAL: Abdomen soft, non tender no palpable masses. Bowel sounds present in all 4 quadrants. MUSCULOSKELETAL:? No cyanosis or edema, no visible joint swelling.Moves all 4 extremities, .warm to touch, b/l lower leg has erythematous and blanching rash that is tender to touch NEUROLOGICAL: CN II-XII grossly intact.Sensation intact, symmetric. PSYCHIATRIC: Awake and alert, not agitated, normal mood and affect. INTEGUMENTARY: No obvious rashes, no jaundice, normal turgor. Objective Labs 12/11/24 04:47 12/11/24 04:47 Labs: Laboratory Results - last 24 hr 12/11/24 04:47 WBC 5.5 RBC 4.64 Hgb 13.0 Hct 39.5 MCV 85 MCH 28.0 MCHC 32.9 RDW Std Deviation 47.0 H Plt Count 290 D Neut % (Auto) 71 Lymph % (Auto) 11 [place] % (Auto) 13 H Eos % (Auto) 4 Baso % (Auto) 1 Neut # (Auto) 3.9 Lymph # (Auto) 0.6 L [place] # (Auto) 0.7 Eos # (Auto) 0.2 Baso # (Auto) 0.0 Immature Gran # (Auto) 0.02 H Absolute Nucleated RBC 0.00 Immature Gran % 0 Nucleated RBC % 0 Sodium 139 Potassium 3.9 Chloride 100 Carbon Dioxide 27.7 Anion Gap 11 BUN 32 H Creatinine 1.4 H Estim Creat Clear Calc 44.8 L eGFR 43 L BUN/Creatinine Ratio 23 H Glucose 130 H Calculated Osmolality 286 Calcium 9.3 Phosphorus 2.9 Magnesium 2.3 ABG Interpretation ABG results: 12/09/24 01:59 ABG pH 7.43 ABG pCO2 44 ABG pO2 70 L ABG HCO3 29 H ABG O2 Saturation 95 ABG Base Excess 4 H Quality Measures Quality Measures none Assessment & Plan Assessment Current Active Medications: Generic Name Dose Route Start Last Admin Trade Name Freq PRN Reason Stop Dose Admin Acetaminophen 650 mg 12/09/24 14:28 Acetaminophen 325 Mg Tablet PO 01/08/25 14:27 Q6H PRN PAIN OR FEVER > 100.4 Protocol Hydrocodone Bitart/Acetaminophen 1 tab 12/09/24 15:01 12/11/24 09:33 Hydrocodone/Apap 5/325 Tablet PO 12/14/24 15:00 1 tab Q6HR PRN Administration PAIN SCALE 7-10 (Severe Albuterol/Ipratropium 3 ml 12/09/24 15:52 Albuterol/Ipratropium (Duoneb) Rt Joy 3 Ml Nebu INH 01/08/25 15:51 Q2HR PRN SHORTNESS OF BREATH OR WHEEZE Ascorbic Acid 500 mg 12/09/24 21:00 12/11/24 09:30 Ascorbic Acid 250 Mg Tablet PO 01/08/25 20:59 500 mg BID EMY Administration Atorvastatin Calcium 40 mg 12/10/24 21:00 12/10/24 20:51 Atorvastatin Calcium 20 Mg Tablet PO 01/09/25 20:59 40 mg HS EMY Administration Clopidogrel Bisulfate 75 mg 12/10/24 09:00 12/11/24 09:30 Clopidogrel Bisulfate 75 Mg Tablet PO 01/09/25 08:59 75 mg QDAY EMY Administration Dextrose 25 ml 12/09/24 14:28 Dextrose 50%-Water Inj 50 Ml Syringe IV 01/08/25 14:27 Q15MIN PRN BG 50-70 responsive npo pt Dextrose 50 ml 12/09/24 14:28 Dextrose 50%-Water Inj 50 Ml Syringe IV 01/08/25 14:27 Q15MIN PRN BG <50 OR BG <70 & pt unresponsive Diltiazem HCl 180 mg 12/10/24 09:00 12/11/24 09:30 Diltiazem Cd 180 Mg Capcr PO 01/09/25 08:59 180 mg QDAY EMY Administration Glucagon 1 mg 12/09/24 14:28 Glucagon Inj 1 Mg Vial IM Q15MIN PRN BG <70, and no IV access Heparin Sodium (Porcine) 5,000 unit 12/09/24 22:00 12/11/24 05:56 Heparin Sod Inj 5000 Unit/Ml Vial SC 12/23/24 21:59 5,000 unit Q8HR EMY Administration Insulin Glargine 40 unit 12/10/24 09:00 12/11/24 09:31 Insulin Glargine (Lantus) 5 Unit/0.05 Ml (Per 5 Units) SC 01/09/25 08:59 40 unit QDAY EMY Administration Insulin Glargine 60 unit 12/09/24 21:00 12/10/24 21:04 Insulin Glargine (Lantus) 5 Unit/0.05 Ml (Per 5 Units) SC 01/08/25 20:59 50 unit HS EMY Administration Insulin Human Lispro 0 unit 12/11/24 07:30 12/11/24 11:41 Insulin Lispro (Admelog) 1 Unit/0.01 Ml Unit SC 01/10/25 07:29 3 unit ACHS EMY Administration Protocol Metoprolol Succinate 25 mg 12/10/24 09:45 12/11/24 09:30 Metoprolol Succinate Xl 25 Mg Tabcr PO 01/09/25 09:44 25 mg QDAY EMY Administration Home Medication- 48 ea 12/10/24 09:00 12/11/24 09:39 Please Speak With PO 01/09/25 08:59 Not Given Patient Caregiver To QDAY EMY Have Rx Brought To [facility] Non-Formulary Medication 10 mg 12/10/24 09:00 12/11/24 09:39 Finerenone PO 01/09/25 08:59 Not Given QDAY EMY Non-Formulary Medication 1 inh 12/10/24 09:00 12/10/24 11:08 Vmisrxletii-Qrfsssebo-Jrxbrvac [Trelegy Ellipta] IH 01/09/25 08:59 Not Given QDAY EMY Non-Formulary Medication 1 cap 12/10/24 09:00 12/11/24 09:40 Triamterene-Hydrochlorothiazid PO 01/09/25 08:59 Not Given QDAY EMY Protocol Ondansetron HCl 4 mg 12/09/24 14:28 Ondansetron Inj 2 Mg/Ml Inj 2 Ml IVP 01/08/25 14:27 Q6H PRN NAUSEA OR VOMITING Protocol Pantoprazole Sodium 40 mg 12/10/24 09:00 12/11/24 09:31 Pantoprazole Inj 40 Mg Vial IVP 01/09/25 08:59 40 mg QDAY EMY Administration Plan Amrita Krishna is a 64-year-old female with a past medical history of CAD status post stents, PAD status post stents, HFpEF (EF 50-55%, G3DD on 04/2024), COPD (not on home O2), insulin-dependent type 2 diabetes mellitus, hypertension, CKD stage III-IV, and chronic lower extremity cellulitis who is admitted for acute encephalopathy, acute on chronic kidney injury, and hyperkalemia. #Acute encephalopathy secondary to acute on chronic kidney injury versus polypharmacy versus infection-resolved Presents with 1 day of acute encephalopathy per sister. No preceding infectious symptoms, including cough, shortness of breath, fever, chills, dysuria, abdominal pain. Noted to have pregabalin and baclofen as home medications that can be contributing to her presentation. PCP has been down titrating pregabalin and currently on 50 mg twice daily. However, also noted to present with creatinine of 2.7 and BUN of 63 (baseline creatinine appears to be 1.2-1.5). Sister states that patient has had normal appetite and drinking sufficient amount of water. CT head negative for acute intracranial pathologies. ? Holding pregabalin and baclofen ? IVF for CASEY and monitor for signs of improvement in mentation - 12/11/2024. Patient mentation appears to be at baseline. Encephalopathy resolved. Patient is AO x 3.We discussed the possibility of encephalopathy, likely related to polypharmacy, given the number of medications the patient is currently taking at home. Detailed instructions regarding medications upon discharge were provided to both the patient and the daughter. #Acute on chronic kidney injury- improving #CKD stage III-IV, likely secondary to diabetes Per sister, patient has had normal p.o. intake and adequate fluid consumption. Baseline creatinine noted be around 1.2-1.5 but also has longstanding, uncontrolled diabetes. ? Received IVF during hospitalization ? renal ultrasound:Bilateral renal cortical thinning, 8 mm nonobstructive renal right calculus. Moderate bilateral renal parenchymal scar formation. ? Avoid nephrotoxic agents when possible, renally dose medications ? Finerenone 10 mg p.o. daily - Kidney function continue to improve, patient is having an adequate urine output, encourage her for oral intake. Will hold off on her Lasix for now. Patient is aware of the plan #HFpEF (EF 50 to 55%, G3 DD on 04/2024) Not in acute exacerbation. ? Will hold on home Lasix ? metoprolol succinate 25 Mg ? Daily weights #Type 2 diabetes mellitus, insulin-dependent A1c 11.1% on 12/09/2024 ? 40 mg glargine in a.m., 60 mg glargine at bedtime ? SSI ? Hypoglycemic protocol in place #CAD status post stents #PAD status post stents ? Clopidogrel 75 mg p.o. daily ? Atorvastatin 10 mg p.o. at bedtime ? Fenofibrate 48 mg daily #COPD, not on home O2 Quit smoking two years ago, not on home oxygen. ? Trelegy inhaler daily ? DuoNebs as needed #Hypertension ? Diltiazem 180 mg daily ? Triamterene-HCTZ 37.5-25 mg capsule daily Hospital management: Disposition: Acute encephalopathy, monitoring improvement in mental status Diet: Cardiac Lines: PIV DVT prophylaxis: Heparin SC every 8 hours GI prophylaxis: Pantoprazole 40 mg IV daily CODE STATUS: full code Patient care was discussed with attending physician Dr. Sylwia Mac MD PGY-2
--- NOTE | 2024-12-11 15:32 | PC.SS ---
SS follow up note; Patient would like to discharge to SNF. Repeat PT evaluation is pending. SS submitted SNF inquiry through [facility] platform to all local facilities. SS met with patient at bedside To provide SNF choices. Patient reported she would like to Discharge to [facility]. SS contacted Elina from [facility] and informed SS she would have to review medicare days and would get back to SS tomorrow. Patient will complete 3 midnights tomorrow.
[2024-12-11] MEDS: FENOFIBRATE 48 MG TABLET PO (17:20)
[2024-12-11] MEDS: KERENDIA 20 MG PO (17:20)
[2024-12-11] MEDS: ATORVASTATIN CALCIUM 20 MG TABLET 40 MG PO (21:14)
--- NOTE | 2024-12-11 21:15 | PC.NURSE ---
called RT- notified re trelegy inhaler available.
[2024-12-11] MEDS: INSULIN GLARGINE (Lantus) 5 UNIT/0.05 ML (PER 5 UNITS) 60 UNIT SC (21:34)
[2024-12-12] VITALS (8 sets, daily range): BP systolic 136–171; BP diastolic 68–85; PULSE 65–84; RESP 16–19; TEMP 36.1–37; O2SAT 94–98; BMI 11.0
[2024-12-12 05:41] LABS: Basophils % (Auto) 0 % (0-2.5); Eosinophils # (Auto) 0.2 Thou/mm3 (0.0-0.5); Eosinophils % (Auto) 4 % (0-10); Hematocrit 39.9 % (36.0-46.0); Hemoglobin 13.4 g/dL (12.0-16.0); Immature Granulocytes % (Auto) 1 % (0-0); Immature Granulocytes Auto 0.03 Thou/mm3 (0.00-0.00); Lymphocytes # (Auto) 0.7 Thou/mm3 (1.0-4.8); Lymphocytes % (Auto) 12 % (10-50); Mean Corpuscular HGB Conc 33.6 g/dl (31.0-37.0); Mean Corpuscular Hemoglobin 28.5 pg (25.0-35.0); Mean Corpuscular Volume 85 fL (80-100); Monocytes # (Auto) 0.7 Thou/mm3 (0.0-0.8); Monocytes % (Auto) 12 % (0-12); Neutrophils # (Auto) 4.2 Thou/mm3 (1.8-7.7); Neutrophils % (Auto) 72 % (37-80); Nucleated Red Blood Cell % 0 /100 WBC (0); Platelet Count 298 Thou/mm3 (140-440); RDW Standard Deviation 45.7 fL (36.4-46.3); Red Blood Count 4.71 Miln/mm3 (4.00-5.20); White Blood Count 5.9 Thou/mm3 (3.6-11.0)
[2024-12-12 06:12] LABS: Anion Gap 12 (7-16); BUN/Creatinine Ratio 17 Ratio (12-20); Blood Urea Nitrogen 20 mg/dL (9-23); Calcium 9.4 mg/dL (8.3-10.6); Carbon Dioxide 25.6 mMol/L (20.0-31.0); Chloride 101 mMol/L (98-107); Creatinine (Component) 1.2 mg/dL (0.6-1.3); Estimated Creatinine Clearance 52.3 mL/min (>60); Glucose 117 mg/dL (74-106); Osmolality,Calculated 281 (275-295); Phosphorous 2.9 mg/dL (2.4-5.1); Sodium 139 mMol/L (136-145); eGFR 51 See Note
[2024-12-12] MEDS: HEPARIN SOD INJ 5000 UNIT/ML VIAL SC ×2 (07:11→15:54)
[2024-12-12] MEDS: INSULIN GLARGINE (Lantus) 5 UNIT/0.05 ML (PER 5 UNITS) 40 UNIT SC (08:29)
[2024-12-12] MEDS: PANTOPRAZOLE 40 MG TABLET PO (08:30)
[2024-12-12] MEDS: CLOPIDOGREL BISULFATE 75 MG TABLET PO (08:30)
[2024-12-12] MEDS: DILTIAZEM CD 180 MG CAPCR PO (08:30)
[2024-12-12] MEDS: KERENDIA 20 MG PO (08:31)
[2024-12-12] MEDS: TRIAMTERENE HYDROCHLOROTHIAZIDE PO (08:31)
[2024-12-12] MEDS: FENOFIBRATE 48 MG TABLET PO (08:31)
[2024-12-12] MEDS: LACTULOSE SYRUP 20 GM/30 ML UDC PO (11:23)
--- NOTE | 2024-12-12 11:58 | ESDS_ITS ---
<Statement entered by Elizabeth Merchant DO - 12/13/24 07:18> I, Elizabeth Merchant DO, attest that I was physically present for the higgins portions of the service and evaluated the patient with the resident and I reviewed and discussed the case with the resident and agree with the resident's findings and plans of care as documented above Planned Discharge Date 12/12/24 DS: Providers Provider Date of admission: 12/09/24 14:28 Primary care physician: Wally Llamas MD Admitting Provider: Ileana Dao MD Attending Provider on Admission: Ileana Dao MD Consults: 12/09/24 14:54 Referral Physical Therapy Routine Comment: Physician Instructions: Instructions: Walks with walker at baseline, sedentary lifestyle Referral Speech Therapy Routine Comment: 12/11/24 06:09 Referral Wound Care Routine Comment: diabetic ulcer left great toe.right posterior calf 12/12/24 11:11 Referral OP Wound Healing Dept Routine Comment: Instructions: DM ulcer bilateral feet, fungal ghazal area rash 12/12/24 11:55 Referral Physical Therapy Stat Comment: Physician Instructions: Instructions: SNF needs repeat physical therapy evaluation Attending Provider on DC: Haris Fritz MD Discharging Provider: Haris Fritz MD DS: Diagnosis Problem List Completed Was Problem List Reviewed/Reconciled?: Yes Hospital Course Hospital Course Hospital course: Amrita Krishna is a 64-year-old female with a past medical history of CAD status post stents, PAD status post stents, COPD (not on home O2), insulin- dependent type 2 diabetes mellitus, CKD stage III-IV, and chronic lower extremity cellulitis who presented on 12/09 for acute encephalopathy. Patient is coming from home and lives with her sister, but is unable to provide accurate history given acute encephalopathy and history obtained over phone call with her sister, Lindsay. States that in the afternoon/evening of 12/08, patient became more sleepy than usual and appeared slightly altered per sister who wanted to take patient to the ED but patient refused. Around midnight, sister's son noticed that patient had fallen in the living room and at that time was encephalopathic as she was only saying ow and subsequently brought to the ED. There are no preceding events, though sister noted patient to be more tired than usual over the last few days. At bedside, patient herself continues to say ow as a response to multiple questions, is alert but unable to answer orientation questions. Per sister, at baseline she is A&O x 3, conversational, and has no history of dementia. At baseline, patient walks with a walker and is mostly sedentary, does not have home O2, saturates between 93 and 94% on room air, and has home health PT with [facility]. Otherwise, patient has had multiple episodes similar to this that resolved with IVF and antibiotcs per sister. She was made n.p.o., speech evaluation ordered, and pregabalin and baclofen were held as possible etiologies of acute encephalopathy and started on IVF for her CASEY. Throughout hospital course, no acute events occurred and patient's encephalopathy had resolved. Urine did not show signs of infection, ramirez CT scans (including CT head) did not show anything significant. Possible that presentation was polypharmacy vs acute kidney injury, vs both, as symptoms had resolved and patient was alert and oriented x3 on day of discharge. Vital signs remained stable, CBC was unremarkable, and chem panel showed resolution of acute kidney injury. Given that patient had returned to her baseline, she was deemed stable for discharge with recommendation to hold baclofen. Diagnoses during admission: #Acute encephalopathy secondary to acute on chronic kidney injury versus polypharmacy versus infection, resolved #Acute on chronic kidney injury, resolved #CKD stage III-IV, likely secondary to diabetes #HFpEF (EF 50 to 55%, G3 DD on 04/2024) #Type 2 diabetes mellitus, insulin-dependent #CAD status post stents #PAD status post stents #COPD, not on home O2 #Hypertension Discharge instructions: 1) Follow up at [facility] for care of ulcers to feet and rash to ghazal area. Call [phone] for appointment. [facility] 2) Shower daily with goal to keep skin clean and dry - Apply over the counter antifungal cream to gron and ghazal area twice a day, avoid use of briefs if possible. 3) Popped blister to back to right calf: cleanse with wound cleanser, pat dry, apply foam dressing once a day and as needed for falling off. 4) Diabetic ulcer to left great toe and right 3rd toe: cleanse with wound cleanser, pat dry, apply foam dressing daily Please wear socks and shoes during walking. Monitor feet daily ----- Plan discussed with attending physician Dr. Mayur Fritz MD PGY-1 Internal Medicine Time Spent with Patient Time attestation: Total time spent providing and/or coordinating discharge services: Time spent: Greater than 30 minutes Exam Vital Signs Temp Pulse Resp BP Pulse Ox O2 Del Method O2 Flow Rate 97.0 F 79 16 171/70 H 94 L Room Air 1 12/12/24 08:00 12/12/24 09:17 12/12/24 09:17 12/12/24 08:30 12/12/24 09:17 12/12/24 08:00 12/11/24 04:42 Narrative Exam General: AOx3, no acute distress, able to speak full sentences and conversational HEENT: NC/AT, mucous membranes moist, bilateral sclera anicteric Cardiovascular: regular rate and rhythm, S1/S2 present, no murmurs appreciated Pulmonary: clear to auscultation bilaterally, no rales/rhonchi/wheezes Abdominal: soft, non-tender, non-distended, no rebound/guarding, normal bowel sounds present Musculoskeletal: normal ROM, trace lower extremity edema Skin: lower extremities warm to touch, erythematous and blanching rash that is tender to touch Neuro: CN II-XII intact, no focal deficits Discharge Plan Plan Patient Disposition: Xfer Skilled Nsg Fac (SNF) Patient condition on transfer: Stable Care Plan Goals: 1) Follow up at [facility] for care of ulcers to feet and rash to ghazal area. Call [phone] for appointment. [facility] 2) Shower daily with goal to keep skin clean and dry - Apply over the counter antifungal cream to gron and ghazal area twice a day, avoid use of briefs if possible. 3) Popped blister to back to right calf: cleanse with wound cleanser, pat dry, apply foam dressing once a day and as needed for falling off. 4) Diabetic ulcer to left great toe and right 3rd toe: cleanse with wound cleanser, pat dry, apply foam dressing daily Please wear socks and shoes during walking. Monitor feet daily Prescriptions/Referrals Prescriptions/Med Rec: New tamsulosin [Flomax] 0.4 mg capsule 0.4 mg PO QDAY 30 Days Qty: 30 0RF insulin glargine 100 unit/mL (3 mL) insulin pen 40 unit subcut QDAY Qty: 15 0RF insulin glargine 100 unit/mL (3 mL) insulin pen 60 unit subcut QPM Qty: 15 0RF Continued simvastatin 40 MG tablet 40 mg PO HS Qty: 0 fenofibrate nanocrystallized 48 mg Tablet 48 mg PO QDAY diltiazem HCl [DILT-XR] 180 mg capsule,ext.rel 24h degradable 180 mg PO QDAY Rx Instructions: HOLD IF SBP IS LESS THAN 110 AND/OR PULSE IS LESS THAN 60 triamterene-hydrochlorothiazid 37.5-25 mg capsule 1 cap PO QDAY insulin aspart U-100 [Novolog U-100 Insulin aspart] 100 unit/mL solution 1 sliding scale dose subcut ACHS Rx Instructions: if 0-70=0 Notify give OJ; 71-149=0; 150-200=2 units; 201-250=4 units; 251- 300=6 units; 301-350=8 units; 351-400=10 units; 401-600=12 units Notify pantoprazole [Protonix] 40 mg tablet,delayed release (DR/EC) 40 mg PO QDAY Trelegy Ellipta 200-62.5-25 mcg blister with device 1 inh inhalation QDAY Rx Instructions: 1 puff inhale orally finerenone 10 mg Tablet 10 mg PO QDAY clopidogrel 75 mg Tablet 75 mg PO QDAY Centrum Women 18-400 mg-mcg Tablet 1 tab PO QDAY pregabalin [Lyrica] 50 mg capsule 50 mg PO BID Held Jardiance 25 mg tablet 25 mg PO DAILY Hold Instructions: Resume on 12/25/24. Repeat renal panel before restarting, follow-up with PCP in 1 to 2 weeks baclofen 20 mg Tablet 20 mg PO BID Hold Instructions: Resume on 12/25/24. follow up with PCP to adjust the dosage, Rx Instructions: TAKE ONE TABLET BY MOUTH TWICE A DAY WITH FOOD. furosemide [Lasix] 40 mg tablet 40 mg PO QDAY Hold Instructions: Resume on 12/25/24. follow up with PCP before restarting, repeat CMP in 1 week Discontinued Januvia 100 MG tablet 100 mg PO QDAY Qty: 0 buprenorphine [Butrans] 7.5 mcg/hour Patch Weekly 7.5 mcg TOPICAL QWEEK insulin glargine 100 unit/mL (3 mL) insulin pen, sensor 40 unit subcut BID Qty: 15 1RF buprenorphine 15 mcg/hour patch weekly 15 mcg TOPICAL .WEEK Rx Instructions: THURSDAY insulin glargine [Lantus Solostar U-100 Insulin] 100 unit/mL (3 mL) insulin pen 50 unit subcut QAM simvastatin 10 mg tablet 10 mg PO HS Trelegy Ellipta 200-62.5-25 mcg blister with device 1 inh inhalation QDAY insulin glargine [Lantus Solostar U-100 Insulin] 100 unit/mL (3 mL) insulin pen 75 unit subcut HS aspirin 81 mg tablet,chewable 81 mg PO QDAY diltiazem HCl [Tiadylt ER] 180 mg Capsule,Extended Release 24 Hr 180 mg PO DAILY Referrals: Wally Llamas MD [Primary Care Provider] - Patient/Caregiver Discharge Instructions Other Discharge Activity Instructions:: Baclofen: Hold. You may need an adjustment. Please follow up with your primary care physician before restarting. Buprenorphine: The patch has been discontinued. Lasix (Furosemide): Temporarily held until you follow up with your PCP and repeat your CMP. Lasix is essential for managing heart failure, but your kidney function must be closely monitored before restarting. Aspirin: Discontinued. Please continue with Plavix as prescribed. Medications Not Taken at Home: Please disregard these medications as they are still appearing on your list. Close monitor blood sugar, follow up with PCP for insulin regimen adjustment Follow-up Instructions: Outpatient follow-up with PCP for repeat CMP in 1 week after discharge. Follow up with cardiology outpatient. Return to the emergency department if symptoms worsen. Education Materials: Diabetes: Keeping Feet Healthy, Diabetes: Inspecting Your Feet, Acute Kidney Failure Dc, Discharge Instructions for ..., ED Anyi Diaper Rash Print Language: Salvadorean Stand Alone Forms: Esmer Award Info., Patient Portal Info Letter Discharge Order Discharge Orders: Discharge (Routine); Ordered 12/12/24 Ordered By: Haris Mendiola Mojb Quality Discharge Quality Measures VTE prophylaxis
--- NOTE | 2024-12-12 12:04 | PC.SS ---
Addendum entered by Macey Nix 12/12/24 16:21: Madisyn [facility] requesting PASRR copy. PASRR submitted via Rob to [facility]. Addendum entered by Macey Nix 12/12/24 16:14: SS informed by [facility] they can accept patient. SS contacted JUDY Sawyer to consult about patient?s appropriateness for wheelchair transport. JUDY Sawyer stated patient can travel by wheelchair. Patient requesting transportation assistance and is unable to pay for cost. SS contacted [employer] and was informed patient does not have coverage for transport. SS scheduled transport with [facility], available time is 184. [facility]Y Sawyer informed of ETA 1845 for transportation. SS contacted patient?s sibling Lindsay [phone] to inform her patient to discharge to [facility] at 1845. Lindsay stated [facility] is incorrect and patient should be discharging to [facility] instead. [facility], patient was visibly upset when informed discharge for [facility] set for 1845. Patient stated the names ST and [facility] sounded similar. However, she meant to discharge to [facility]. SS contacted [facility] to confirm bed availability; she explained [facility] does not have female beds available for the next 2 weeks. SS informed patient. SS presented accepting SNFs, [facility], [facility], [facility], and [facility] to patient. Patient requested [facility]. SS informed [facility], who stated they can accept patient today. [facility] transport contacted and was updated with [facility] address of [address]. SS informed NOK sibling Lindsay [phone] of discharge of 1845 ETA. Patient?s sibling Lindsay refusing [facility]. SS informed patient?s sibling Lindsay it is up to patient to make final decision since patient is AAOx4. Lindsay stated patient will discharge home with her after patient?s Medicare days are completed at [facility]. Patient informed of [facility] accepting today, ETA 1845. JUDY Sawyer updated patient to discharge to [facility]. Original Note: PT eval note submitted via Rob to [facility]. [facility] stated patient has 31 Medicare days left. SS awaiting response from [facility] to confirm if patient can be accepted today.
[2024-12-12] MEDS: INSULIN LISPRO (AdmeLOG) 1 UNIT/0.01 ML UNIT SC (17:28)
--- NOTE | 2024-12-14 09:04 | PC.CM ---
Patient was opened to [facility]. I let them know patient went to [facility].
== END 2024-12-12 18:56 | disposition skilled nursing facility (03) | DRG 683 ==
LOC: SERX 15:20 → S3SX 12-11 07:56 → SERHOLD 12-12 06:05
PROVIDERS: Emergency Medicine; Student in an Organized Health Care Education/Training Program; Admitting Provider Internal Medicine; PCP Family Medicine; Visit Provider Internal Medicine
DX: N17.9 Acute kidney failure, unspecified (principal); G93.40 Encephalopathy, unspecified; I50.32 Chronic diastolic (congestive) heart failure; I13.0 Hypertensive heart and chronic kidney disease with heart failure and stage 1 through stage 4 chronic kidney disease, or unspecified chronic kidney disease; I25.10 Atherosclerotic heart disease of native coronary artery without angina pectoris; N18.4 Chronic kidney disease, stage 4 (severe); Z95.5 Presence of coronary angioplasty implant and graft; J44.9 Chronic obstructive pulmonary disease, unspecified; Z79.4 Long term (current) use of insulin; I12.9 Hypertensive chronic kidney disease with stage 1 through stage 4 chronic kidney disease, or unspecified chronic kidney disease; Z87.891 Personal history of nicotine dependence; E87.5 Hyperkalemia; E11.22 Type 2 diabetes mellitus with diabetic chronic kidney disease; E11.65 Type 2 diabetes mellitus with hyperglycemia; Z79.02 Long term (current) use of antithrombotics/antiplatelets; Z79.82 Long term (current) use of aspirin; Z79.899 Other long term (current) drug therapy; Z99.81 Dependence on supplemental oxygen; Z88.5 Allergy status to narcotic agent
CPT/HCPCS: 36415; 36600; 70450; 70486; 71250; 72125; 72128; 72131; 74176; 76770; 80048; 80053; 80061; 80069; 80307; 80320; 81001; 82010; 82140; 82248; 82550; 82803; 83036; 83605; 83735; 83880; 84100; 84145; 84439; 84443; 84484; 85025; 85610; 85652; 85730; 86140; 87040; 87400; 87811; 92610; 93005; 93225; 94664; 96360; 97163; 99285; J1644; J1815; J2470; J7030; A9270; G0480